=== PATIENT | female | born 1935 | race Caucasian/White ===

== ENCOUNTER 2016-09-24 10:27 | Emergency (ER) | payer MEDICARE, OTHER ==
--- NOTE | 2016-09-24 11:26 | ED Physician Documentation ---
History of Present Illness - Stated complaint Stated Complaint: L ARM PX - Chief complaint Chief Complaint: Ext Problem - Additonal information Additional information: hx from pt 81 female L arm pain for several days no injury entire arm hurts but elbow is the worst it is swollen and feels hot hx prior trauma and cannot fully range that elbow she fears gout Review of Systems Constitutional: denies: Fever Cardiac: denies: Chest pain / pressure Respiratory: denies: Dyspnea GI: denies: Abdominal Pain Musculoskeletal: reports: Extremity pain, Joint pain PD PAST MEDICAL HISTORY - Past Medical History Cardiovascular: Congestive heart failure, Coronary artery disease, Atrial flutter, Atrial fibrillation Respiratory: None, COPD Neuro: None Endocrine/Autoimmune: None GI: GERD Psych: Panic attacks Musculoskeletal: None - Past Surgical History 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 Cardiovascular: Coronary stent HEENT: Tonsil/Adenoidectomy - Present Medications Home Medications: Ambulatory Orders Medication Instructions Recorded Confirmed Zolpidem [Ambien] 5 mg PO QPM PRN 02/14/16 09/24/16 Aspirin Chewable [St Jan 81 mg PO DAILY 02/21/16 09/24/16 Aspirin] Atorvastatin Calcium 60 mg PO QPM 02/21/16 09/24/16 Diltiazem HCl [Diltiazem 24Hr ER] 240 mg PO DAILY 02/21/16 09/24/16 Esomeprazole Magnesium [Nexium] 20 mg PO DAILY 02/21/16 09/24/16 Hydrocodone/Acetaminophen 1 tab PO Q6H PRN 02/21/16 09/24/16 [Hydrocodon-Acetaminophen 5-325] Levothyroxine Sodium 50 mcg PO DAILY 02/21/16 09/24/16 Metoprolol Succinate [Toprol Xl] 50 mg PO DAILY tablet 02/23/16 09/24/16 Furosemide [Lasix] 40 mg PO DAILY 09/24/16 09/24/16 - Allergies Allergies/Adverse Reactions: Allergies Allergy/AdvReac Type Severity Reaction Status Date / Time adhesive AdvReac Rash Verified 09/24/16 10:33 lisinopril AdvReac Respiratory Verified 09/24/16 10:33 - Social History Does the pt smoke?: No Smoking Status: Former smoker Does the pt drink ETOH?: No Does the pt have substance abuse?: No - Immunizations Immunizations are current?: Yes - POLST Patient has POLST: No PD ED PE NORMAL - Vitals Vital signs reviewed: Yes - General General: Alert and oriented X 3 - Cardiac Cardiac: No: RRR (irreg) - Respiratory Respiratory: No respiratory distress - Extremities Extremities: Other (L elbow swollen, patch or erythema, limited ROM 2/2 prior injury but also pain, MSV intact, rest of arm midlly TTP but s deformity and able to move shoulder and wrist) Results - Vitals Vitals: Vital Signs - 24 hr 09/24/16 09/24/16 10:30 16:36 Temperature 37.2 C 37.1 C Heart Rate 82 86 Respiratory 19 20 Rate Blood Pressure 117/84 H 133/78 H O2 Saturation 98 100 Oxygen O2 Source Room air - Labs Labs: Microbiology 09/24/16 14:30 Body Fluid Culture - Preliminary Other - Left Arm Laboratory Tests 09/24/16 14:30 Fluid Source SYNOVIAL Fluid Color BLOODY Fluid Clarity BLOODY Fluid WBC 22544 Fluid RBC [id number] Fluid Neutrophils % 80 Fluid Lymphocytes % 20 Fld Mesothelial Cell % Not Reportable Fluid Crystals NONE SEEN - Rads (name of study) elbow Radiology: See rad report (osteopenia, minimally impacted radial head fx, ant posterior fat pads suggest jt effusion) Procedures - Arthrocentesis Joint: Elbow, Left, Other (lateral approach with hand supinated to avoid radial nerve) Preparation: Sterile prep and drape Anesthesia: Lidocaine 1%, Other (with good effect) Fluid: Bloody, Sent for cell count, Sent for crystals, Sent for culture, Fluid obtained - cc (5), Sent for gram stain Aftercare: No complications (brief pain down the arm immediately resolved with moving the needle) PD MEDICAL DECISION MAKING - ED course ED course: xray shows impacted radial head - pt states absolutely no recent trauma - and no bruising noted - she has hx of sig prior injury with residual limited ROM and so I suspect this xray is likely chronic - given erythema and warmth and pain with ROM tapped elbow under sterile procedure - lateral approach, supinated as far as limited ROM would allow to avoid radial nerve, pt did have a brief pain down her arm but it immed resolved, 5 ml bloody fluid removed, she felt better after the procedure, fluid analysis is c/w hemarthrosis but not septic jt or gout, unclear why she would have hemarthrosis without trauma, will refer to ortho for further eval Departure - Departure Disposition: 01 Home, Self Care Clinical Impression: Hemarthrosis Condition: Good Follow-Up: [facility] [Provider Group] Delvin Parrish DO [Primary Care Provider] - Comments: The xray showed a deformity to the bones in the elbow - since you have not had a recent injury this is likely a chronic finding. Because there was redness and warmth to the elbow joint, there was concern about gout or a joint infection. So we drained some fluid from the joint - the fluid was mostly all blood - there were no gout crystals and the number of white blood cells in the fluid does not suggest a joint infection. Hopefully the pain will be a bit better now that some of the fluid has been drained off. You can use an YISSEL wrap to further decrease the swelling as well as wear a sling for comfort. Ice will help too. Please follow up with the learning design specialist for a recheck within a week. Continue the pain medications you already take at home The ER will call you if the fluid culture indicates the need for different treatment
--- NOTE | 2016-09-24 11:50 | XRAY Preliminary Report ---
Exam: XR Elbow 3 View LT IMPRESSION: Minimally impacted radial head fracture. [facility] SITE ID: [id number]
--- NOTE | 2016-09-24 11:53 | XRAY Report ---
EXAM: LEFT ELBOW RADIOGRAPHY EXAM DATE: 09/24/2016 11:26 AM. CLINICAL HISTORY: Elbow pain and swelling. COMPARISON: None. TECHNIQUE: 3 views. FINDINGS: Bones: Osteopenia. Minimally impacted radial head fracture. Otherwise unremarkable. Joints: Prominent distention of anterior and posterior fat pads. Mild marginal lipping. Soft Tissues: Unremarkable. IMPRESSION: Minimally impacted radial head fracture. [facility] Referring Provider Line: [phone] SITE ID: [id number]
[2016-09-24] MEDS ORDERED: LIDOCAINE 1%-EPI 1:100000 20 ML MDV ONE (13:59)
[2016-09-24 15:43] LABS: CC,BF RBC 622331 /mm^3
[2016-09-24 16:15] LABS: BF CLARITY BLOODY; BF COLOR BLOODY
[2016-09-24 16:41] VITALS: BP 133/78
[2016-09-24 17:20] LABS: LYMPHOCYTES %,BODY FLUID 20; NEUTROPHILS %, BF 80 %
== END 2016-09-24 16:34 | disposition home or self-care (01) ==
LOC: ED 10:27
DX: M25.022 Hemarthrosis, left elbow (principal); M85.822 Other specified disorders of bone density and structure, left upper arm; Z79.82 Long term (current) use of aspirin; Z87.891 Personal history of nicotine dependence
CPT/HCPCS: 20605; 87070; 87205; 89051; 89060; 99283

== ENCOUNTER 2016-10-11 18:01 | Outpatient (CLI) | payer MEDICARE, OTHER | END 2016-10-11 18:02 | disposition critical access hospital (66) | LOC: EMS 18:01 | PROVIDERS: ATTEND Surgery | DX: M79.652 Pain in left thigh (principal) | CPT/HCPCS: A0425; A0429 ==

== ENCOUNTER 2016-10-11 18:21 | Emergency (ER) | payer MEDICARE, OTHER ==
[2016-10-11] MEDS ORDERED: HYDROmorphone 1 MG/ML SYRINGE IVP STA ×2 (18:45→21:00)
--- NOTE | 2016-10-11 18:47 | ED Physician Documentation ---
PD HPI LOWER EXT INJURY - Stated complaint Stated Complaint: GROIN/THIGH PN - Chief complaint Chief Complaint: Ext Problem - History obtained from History obtained from: Patient, EMS - Additional information Additional information: 81-year-old woman with extensive vascular disease presents with acute onset thigh pain on the left for the last few hours without associated injury. Pain is severe. No associated fever. 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 Cardiovascular: Coronary stent HEENT: Tonsil/Adenoidectomy - Present Medications Home Medications: Ambulatory Orders Medication Instructions Recorded Confirmed Zolpidem [Ambien] 5 mg PO QPM PRN 02/14/16 10/11/16 Aspirin Chewable [St Jan 81 mg PO DAILY 02/21/16 10/11/16 Aspirin] Atorvastatin Calcium 60 mg PO QPM 02/21/16 10/11/16 Diltiazem HCl [Diltiazem 24Hr ER] 240 mg PO DAILY 02/21/16 10/11/16 Esomeprazole Magnesium [Nexium] 20 mg PO DAILY 02/21/16 10/11/16 Hydrocodone/Acetaminophen 1 tab PO Q6H PRN 02/21/16 10/11/16 [Hydrocodon-Acetaminophen 5-325] Levothyroxine Sodium 50 mcg PO DAILY 02/21/16 10/11/16 Metoprolol Succinate [Toprol Xl] 50 mg PO DAILY tablet 02/23/16 10/11/16 Furosemide [Lasix] 40 mg PO DAILY 09/24/16 10/11/16 Potassium Citrate [Potassium 5 meq PO BID #10 tablet.er 10/11/16 Citrate ER] - Allergies Allergies/Adverse Reactions: Allergies Allergy/AdvReac Type Severity Reaction Status Date / Time adhesive AdvReac Rash Verified 09/24/16 10:33 lisinopril AdvReac Respiratory Verified 09/24/16 10:33 - Social History Does the pt smoke?: No Smoking Status: Former smoker Does the pt drink ETOH?: No Does the pt have substance abuse?: No - Family History Family history: reports: Non contributory - Immunizations Immunizations are current?: Yes - POLST Patient has POLST: No PD ED PE NORMAL - Vitals Vital signs reviewed: Yes - General General: Alert and oriented X 3, Other (uncomfortable, in pain) - Neck Neck: Supple, no meningeal sign, No bony TTP - Cardiac Cardiac: RRR, No murmur - Respiratory Respiratory: No respiratory distress, Clear bilaterally - Abdomen Abdomen: Normal bowel sounds, Soft, Non tender - Derm Derm: Normal color, Warm and dry - Extremities Extremities: Other (I do appreciate pedal pulses, the left foot is cool but they are symmetric. No swelling. There is a healing lesion on the anterior left maldonado and multiple old bruises.) - Neuro Neuro: Alert and oriented X 3, Normal speech - Psych Psych: Normal mood, Normal affect Results - Vitals Vitals: Vital Signs - 24 hr 10/11/16 10/11/16 10/11/16 18:22 18:27 19:41 Temperature 36.7 C 36.4 C L Heart Rate 111 H 81 Respiratory 22 15 Rate Blood Pressure 152/82 H 151/77 H O2 Saturation 99 99 10/11/16 10/11/16 10/11/16 20:17 21:25 21:39 Temperature 36.6 C Heart Rate 69 91 72 Respiratory 16 16 16 Rate Blood Pressure 133/79 H 148/77 H 148/77 H O2 Saturation 99 100 97 Oxygen O2 Source Room air - Labs Labs: Laboratory Tests 10/11/16 10/11/16 10/11/16 18:52 18:52 19:57 WBC 9.2 RBC 3.93 L Hgb 11.7 L Hct 35.6 L MCV 90.6 MCH 29.8 MCHC 33.0 RDW 15.3 H Plt Count 316 MPV 7.5 L Neut # 7.4 H Lymph # 0.9 L [place] # 0.7 Eos # 0.1 Baso # 0.1 Absolute Nucleated RBC 0.00 Nucleated RBCs 0.0 Sodium 140 Potassium 3.2 L Chloride 103 Carbon Dioxide 23 Anion Gap 14.0 H BUN 27 H Creatinine 1.1 H Estimated GFR (MDRD) 48 L Glucose 171 H Lactic Acid 1.1 Calcium 9.1 Total Bilirubin 0.9 AST 27 ALT 23 Alkaline Phosphatase 103 Total Protein 6.6 L Albumin 3.5 Globulin 3.1 Albumin/Globulin Ratio 1.1 Lipase 21 L Urine Color Urine Clarity Urine pH Ur Specific [place] Urine Protein Urine Glucose (UA) Urine Ketones Urine Occult Blood Urine Nitrite Urine Bilirubin Urine Urobilinogen Ur Leukocyte Esterase Ur Microscopic Review Urine Culture Comments 10/11/16 20:00 WBC RBC Hgb Hct MCV MCH MCHC RDW Plt Count MPV Neut # Lymph # [place] # Eos # Baso # Absolute Nucleated RBC Nucleated RBCs Sodium Potassium Chloride Carbon Dioxide Anion Gap BUN Creatinine Estimated GFR (MDRD) Glucose Lactic Acid Calcium Total Bilirubin AST ALT Alkaline Phosphatase Total Protein Albumin Globulin Albumin/Globulin Ratio Lipase Urine Color YELLOW Urine Clarity CLEAR Urine pH 5.0 Ur Specific [place] 1.015 Urine Protein NEGATIVE Urine Glucose (UA) NEGATIVE Urine Ketones NEGATIVE Urine Occult Blood NEGATIVE Urine Nitrite NEGATIVE Urine Bilirubin NEGATIVE Urine Urobilinogen 0.2 (NORMAL) Ur Leukocyte Esterase NEGATIVE Ur Microscopic Review NOT INDICATED Urine Culture Comments NOT INDICATED - Rads (name of study) L femur Radiology: EMP read contemporaneously (NAD) PD MEDICAL DECISION MAKING - ED course ED course: She presents with severe sudden onset left thigh pain, this is concerning for a vascular issue however she has normal pedal pulses. There is no evidence of infection on exam or blood work. She is noted to be dehydrated with low potassium, of note her diuretic who recently increased and I wonder if this is the cause. Departure - Departure Disposition: 01 Home, Self Care Clinical Impression: Hypokalemia Leg cramps Qualifiers: Laterality: left Qualified Code(s): R25.2 - Cramp and spasm Condition: Good Record reviewed to determine appropriate education?: Yes Instructions: Hypokalemia Dc Prescriptions: Potassium Citrate [Potassium Citrate ER] 5 meq PO BID #10 tablet.er Comments: Call your doctor to arrange a follow up appointment. Make the next available appointment. In the interim return anytime if worse or if new symptoms develop. Your blood pressure was elevated today on check in to the emergency department. This does not mean that you have hypertension, it is a common phenomenon to check into the emergency department and have elevated blood pressure. I recommend that you see your primary care physician within the week to have it rechecked when you're feeling better.
[2016-10-11] MEDS ORDERED: HYDROmorphone 1 MG/ML SYRINGE ONE ×2 (18:53→21:17)
[2016-10-11 19:00] LABS: BASOPHILS # (AUTO) 0.1 10^3/uL (0.0-0.1); BASOPHILS % (AUTO) 0.8 %; EOSINOPHILS # (AUTO) 0.1 10^3/uL (0.0-0.7); EOSINOPHILS % (AUTO) 1.1 %; HCT - HEMATOCRIT 35.6 % (37.0-47.0); HGB - HEMOGLOBIN 11.7 g/dL (12.0-16.0); LYMPHOCYTES # (AUTO) 0.9 10^3/uL (1.5-3.5); MEAN CORPUSCULAR HEMOGLOBIN 29.8 pg (27.0-31.0); MEAN CORPUSCULAR VOLUME 90.6 fL (81.0-99.0); MEAN PLATELET VOLUME 7.5 fL (7.9-10.8); MONOCYTES # (AUTO) 0.7 10^3/uL (0.0-1.0); MONOCYTES % (AUTO) 7.3 %; NEUTROPHILS # (AUTO) 7.4 10^3/uL (1.5-6.6); NEUTROPHILS % (AUTO) 80.8 %; RED BLOOD COUNT 3.93 10^6/uL (4.20-5.40); RED CELL DISTRIBUTION WIDTH 15.3 % (12.0-15.0); UNCORRECTED WHITE BLOOD COUNT 9.2 x10^3/uL; WHITE BLOOD COUNT 9.2 x10^3/uL (4.8-10.8)
[2016-10-11 19:15] LABS: ALBUMIN/GLOBULIN RATIO 1.1 (1.0-2.2); BILIRUBIN,TOTAL 0.9 mg/dL (0.2-1.0); CALCIUM 9.1 mg/dL (8.5-10.3); CREATININE 1.1 mg/dL (0.4-1.0); POTASSIUM 3.2 mmol/L (3.5-5.0); TOTAL PROTEIN 6.6 g/dL (6.7-8.2)
[2016-10-11] MEDS ORDERED: LACTATED RINGERS 1,000 ML IV STA (19:35)
[2016-10-11 20:10] LABS: BILIRUBIN,URINE NEGATIVE (NEGATIVE)
[2016-10-11 20:12] LABS: UA CHARGE (STRIP ONLY) YES; UR CULTURE IF IND NOT INDICATED
--- NOTE | 2016-10-11 20:54 | XRAY Preliminary Report ---
Exam: XR Femur 2V LT IMPRESSION: No acute osseous abnormality. [facility] SITE ID: [id number]
--- NOTE | 2016-10-11 20:57 | XRAY Report ---
EXAM: LEFT FEMUR RADIOGRAPHY EXAM DATE: 10/11/2016 08:31 PM. CLINICAL HISTORY: Leg pain. COMPARISON: Left hip radiography 03/24/2014. Right femur radiography 02/22/2016. TECHNIQUE: 2 views. 4 images are provided. FINDINGS: Bones: No fracture or focal osseous lesion. Joints: Degenerative change. No dislocation. Soft Tissues: Vascular stent in the medial thigh. IMPRESSION: No acute osseous abnormality. [facility] Referring Provider Line: [phone] SITE ID: [id number]
[2016-10-11] MEDS ORDERED: POTASSIUM BICARB 25 MEQ TABLET PO STA (21:00)
[2016-10-11] MEDS ORDERED: POTASSIUM BICARB 25 MEQ TABLET PO ONE (21:17)
[2016-10-11 21:29] VITALS: BP 148/77
[2016-10-11] MEDS ORDERED: KETOROLAC 60 MG/2 ML VIAL IVP STA (22:09)
[2016-10-11] MEDS ORDERED: HYDROcod/ACET 5/325 Prepack 6 PO STA (22:09)
[2016-10-11] MEDS ORDERED: KETOROLAC 30 MG/ML VIAL ONE (22:21)
[2016-10-11] MEDS ORDERED: HYDROcod/ACET 5/325 Prepack 6 PO ONE (22:22)
== END 2016-10-11 22:42 | disposition home or self-care (01) ==
LOC: EDUNIT# → ED 18:21
DX: E87.6 Hypokalemia (principal); R25.2 Cramp and spasm; I25.10 Atherosclerotic heart disease of native coronary artery without angina pectoris; I50.9 Heart failure, unspecified; I48.92 Unspecified atrial flutter; I48.91 Unspecified atrial fibrillation; R03.0 Elevated blood-pressure reading, without diagnosis of hypertension; Z79.82 Long term (current) use of aspirin; Z87.891 Personal history of nicotine dependence; Z90.710 Acquired absence of both cervix and uterus; Z95.5 Presence of coronary angioplasty implant and graft
CPT/HCPCS: 36415; 73552; 80053; 81003; 83605; 83690; 85025; 96374; 96375; 96376; 99284; A9270; J1170; 81001; 87086

== ENCOUNTER 2016-11-03 10:30 | Outpatient (CLI) | payer MEDICARE, OTHER ==
[2016-11-03 15:04] LABS: BASOPHILS # (AUTO) 0.1 10^3/uL (0.0-0.1); BASOPHILS % (AUTO) 0.6 %; EOSINOPHILS # (AUTO) 0.1 10^3/uL (0.0-0.7); EOSINOPHILS % (AUTO) 1.1 %; HCT - HEMATOCRIT 36.4 % (37.0-47.0); HGB - HEMOGLOBIN 12.1 g/dL (12.0-16.0); LYMPHOCYTES # (AUTO) 1.1 10^3/uL (1.5-3.5); LYMPHOCYTES % (AUTO) 10.6 %; MEAN CORPUSCULAR HEMOGLOBIN 29.8 pg (27.0-31.0); MEAN CORPUSCULAR HGB CONC 33.3 g/dL (32.0-36.0); MEAN CORPUSCULAR VOLUME 89.5 fL (81.0-99.0); MONOCYTES # (AUTO) 1.4 10^3/uL (0.0-1.0); MONOCYTES % (AUTO) 13.2 %; NEUTROPHILS % (AUTO) 74.5 %; NUCLEATED RED BLOOD CELLS AUTO 0.1 /100WBC; RED BLOOD COUNT 4.07 10^6/uL (4.20-5.40); UNCORRECTED WHITE BLOOD COUNT 10.8 x10^3/uL; WHITE BLOOD COUNT 10.8 x10^3/uL (4.8-10.8)
[2016-11-03 16:01] LABS: ALBUMIN/GLOBULIN RATIO 1.1 (1.0-2.2); BILIRUBIN,TOTAL 1.5 mg/dL (0.2-1.0); CALCIUM 9.3 mg/dL (8.5-10.3); CREATININE 1.1 mg/dL (0.4-1.0); POTASSIUM 4.7 mmol/L (3.5-5.0); TOTAL PROTEIN 7.6 g/dL (6.7-8.2)
== END 2016-11-03 10:31 | disposition home or self-care (01) ==
LOC: LAB.WCP 10:30
PROVIDERS: ATTEND Family Medicine
DX: S81.822D Laceration with foreign body, left lower leg, subsequent encounter (principal)
CPT/HCPCS: 36415; 80053; 85025; 87070; 87077; 87205

== ENCOUNTER 2016-11-04 11:05 | Outpatient (CLI) | payer MEDICARE, OTHER | END 2016-11-04 11:06 | disposition home or self-care (01) | LOC: LAB.R 11:05 | PROVIDERS: ATTEND Family Medicine | DX: S81.822D Laceration with foreign body, left lower leg, subsequent encounter (principal) | CPT/HCPCS: 87070; 87077; 87205 ==

== ENCOUNTER 2017-03-13 08:53 | Outpatient (CLI) | payer MEDICARE, OTHER | END 2017-03-13 08:54 | disposition home or self-care (01) | LOC: RT 08:53 | PROVIDERS: ATTEND Family Medicine | DX: J44.9 Chronic obstructive pulmonary disease, unspecified (principal) | CPT/HCPCS: 94010 ==

== ENCOUNTER 2017-11-09 08:00 | Outpatient (CLI) | payer MEDICARE, OTHER ==
[2017-11-09 12:51] LABS: BASOPHILS # (AUTO) 0.1 10^3/uL (0.0-0.1); BASOPHILS % (AUTO) 1.1 %; EOSINOPHILS # (AUTO) 0.3 10^3/uL (0.0-0.7); EOSINOPHILS % (AUTO) 3.9 %; HGB - HEMOGLOBIN 12.9 g/dL (12.0-16.0); LYMPHOCYTES % (AUTO) 15.1 %; MEAN CORPUSCULAR HEMOGLOBIN 31.4 pg (27.0-31.0); MEAN CORPUSCULAR HGB CONC 32.7 g/dL (32.0-36.0); MEAN CORPUSCULAR VOLUME 95.8 fL (81.0-99.0); MEAN PLATELET VOLUME 8.7 fL (7.9-10.8); MONOCYTES # (AUTO) 0.7 10^3/uL (0.0-1.0); NEUTROPHILS # (AUTO) 4.5 10^3/uL (1.5-6.6); NEUTROPHILS % (AUTO) 69.9 %; PLT - PLATELET COUNT 249 10^3/uL (130-450); RED BLOOD COUNT 4.13 10^6/uL (4.20-5.40); RED CELL DISTRIBUTION WIDTH 15.6 % (12.0-15.0); WHITE BLOOD COUNT 6.5 x10^3/uL (4.8-10.8)
[2017-11-09 13:31] LABS: ALBUMIN 3.3 g/dL (3.2-5.5); ALKALINE PHOSPHATASE 60 IU/L (42-121); ALT ALANINE AMINOTRANSFERASE 15 IU/L (10-60); AST ASPARTATE AMINOTRANSFERASE 25 IU/L (10-42); BILIRUBIN,TOTAL 1.3 mg/dL (0.2-1.0); BUN - BLOOD UREA NITROGEN 21 mg/dL (6-20); CARBON DIOXIDE - CO2 28 mmol/L (21-32); CHLORIDE 105 mmol/L (101-111); CREATININE 1.3 mg/dL (0.4-1.0); DIGOXIN 0.4 ng/mL; GFR - MDRD 39 (>89); GLUCOSE 77 mg/dL (70-100); SODIUM 139 mmol/L (135-145); TOTAL PROTEIN 6.6 g/dL (6.7-8.2)
== END 2017-11-09 08:01 | disposition home or self-care (01) ==
LOC: LAB.WCP 08:00
PROVIDERS: ATTEND Family Medicine
DX: I10 Essential (primary) hypertension (principal); I48.91 Unspecified atrial fibrillation
CPT/HCPCS: 36415; 80053; 80162; 85025

== ENCOUNTER 2017-12-27 12:05 | Outpatient (CLI) | payer MEDICARE, OTHER | END 2017-12-27 12:06 | disposition critical access hospital (66) | LOC: EMS 12:05 | PROVIDERS: ATTEND Surgery | DX: M79.605 Pain in left leg (principal); R10.30 Lower abdominal pain, unspecified; M54.5 Low back pain | CPT/HCPCS: A0425; A0427 ==

== ENCOUNTER 2017-12-27 12:34 | Emergency (ER) | payer MEDICARE, OTHER ==
[2017-12-27] MEDS ORDERED: DEXAMETHASONE 10 MG/ML VIAL IVP STA (13:40)
[2017-12-27] MEDS ORDERED: SODIUM CHLORIDE 0.9% 1,000 ML IV ONE (13:40)
--- NOTE | 2017-12-27 13:47 | ED Physician Documentation ---
PD HPI BACK PAIN - Stated complaint Stated Complaint: FEM - Chief complaint Chief Complaint: General - History obtained from History obtained from: Patient - History of Present Illness Timing - onset: Today Timing - duration: Hours Timing - details: Abrupt onset, Still present Location: Lower, Left Quality: Pain, Spasm, Sharp Associated symptoms: No: Fever, Weakness, Numbness, Incontinent of urine, Unable to urinate, Hematuria, Incontinent of stool Improves with: Rest Worsened by: Movement, Twisting, Palpation Similar symptoms before: Diagnosis (vascular disease in the legs) Recently seen: Surgery - Additional information Additional information: 82-year-old female with history of osteoporosis and peripheral vascular disease as well as coronary artery disease has developed pain in her left groin that radiates from her back. She states that the pain was severe this morning and she is then able to move around without significant pain. She relates that recently she has been into see the vascular surgeon and had an angiogram done where she had the right femoral artery entered to view the arteries in the left leg. She states the surgeon was preparing to do balloon angioplasty and the procedure was abandoned when it appeared physically impossible to open vessels distally in the left leg. The patient states that she usually will have pain in her left leg and that today this pain is different and that it is in her left groin and radiates around her hip into the groin. She has had chronic low back pain. Today anytime she moves around she has pain radiating into her groin. She denies any specific injury to her back she denies any specific time that her symptoms came on. Review of Systems Constitutional: denies: Fever Eyes: denies: Decreased vision Ears: denies: Ear pain Nose: denies: Congestion Throat: denies: Sore throat Cardiac: denies: Chest pain / pressure, Palpitations Respiratory: denies: Dyspnea, Cough GI: denies: Abdominal Pain, Nausea, Vomiting : denies: Dysuria, Frequency Musculoskeletal: reports: Back pain, Extremity pain. 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 Cardiovascular: Coronary stent HEENT: Tonsil/Adenoidectomy - Present Medications Home Medications: Ambulatory Orders Medication Instructions Recorded Confirmed Zolpidem [Ambien] 5 mg PO QPM PRN 02/14/16 02/06/17 Atorvastatin Calcium 60 mg PO QPM 02/21/16 02/06/17 Hydrocodone/Acetaminophen 1 tab PO Q6H PRN 02/21/16 02/06/17 [Hydrocodon-Acetaminophen 5-325] Levothyroxine Sodium 50 mcg PO DAILY 02/21/16 02/06/17 Furosemide [Lasix] 40 mg PO DAILY 09/24/16 02/06/17 Albuterol Sulfate [Proair Hfa 2 puffs INH Q4HR PRN 11/25/16 02/06/17 Inhaler] Ascorbic Acid [Vitamin C] 500 mg PO DAILY 11/25/16 02/06/17 Benzonatate 100 mg PO DAILY PRN 11/25/16 02/06/17 Cholecalciferol (Vitamin D3) 2 cap PO DAILY 11/25/16 02/06/17 [Vitamin D3] Cyanocobalamin (Vitamin B-12) 2 tab PO DAILY 11/25/16 02/06/17 [Vitamin B-12] Digoxin 125 mcg PO DAILY 11/25/16 02/06/17 Metoprolol Succinate [Toprol Xl] 25 mg PO DAILY 11/25/16 02/06/17 Multivitamin [Multiple Vitamins] 1 tab PO DAILY 11/25/16 02/06/17 oxyCODONE/ACET 5/325 [Percocet 5 1 - 2 each PO Q4-6H PRN #20 tablet 12/27/17 mg/325 mg] - Allergies Allergies/Adverse Reactions: Allergies Allergy/AdvReac Type Severity Reaction Status Date / Time adhesive AdvReac Rash Verified 09/24/16 10:33 lisinopril AdvReac Respiratory Verified 09/24/16 10:33 - Social History Does the pt smoke?: No Smoking Status: Former smoker Does the pt drink ETOH?: No Does the pt have substance abuse?: No - Immunizations Immunizations are current?: Yes - POLST Patient has POLST: No PD ED PE NORMAL - Vitals Vital signs reviewed: Yes (hypertensive ) - General General: Alert and oriented X 3, No acute distress, Well developed/nourished - HEENT HEENT: Atraumatic, PERRL, EOMI - Neck Neck: Supple, no meningeal sign - Cardiac Cardiac: Other (irregularly irregular rate and rhythm with 2/6 holosystolic murmer at lsb) - Respiratory Respiratory: No respiratory distress, Clear bilaterally - Abdomen Abdomen: Soft, Non tender - Back Back: No CVA TTP, Other (There is lower lumbar midline point tenderness ) - Derm Derm: Normal color, Warm and dry, No rash - Extremities Extremities: No deformity, No edema, Other (There are good femoral pulses bilaterally easily palpable. 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, No motor deficit, No sensory deficit, Normal speech Eye Opening: Spontaneous Motor: Obeys Commands Verbal: Oriented GCS Score: 15 - Psych Psych: Normal mood, Normal affect Results - Vitals Vitals: Vital Signs - 24 hr 12/27/17 12:42 Temperature 36.2 C L Heart Rate 90 Respiratory 16 Rate Blood Pressure 156/101 H O2 Saturation 98 Oxygen O2 Source Room air - Labs Labs: Laboratory Tests 12/27/17 12/27/17 12/27/17 13:55 13:55 14:35 WBC 8.7 RBC 3.88 L Hgb 12.4 Hct 36.6 L MCV 94.2 MCH 32.0 H MCHC 33.9 RDW 15.4 H Plt Count 260 MPV 8.2 Neut # (Auto) 7.6 H Lymph # (Auto) 0.6 L [place] # (Auto) 0.4 Eos # (Auto) 0.0 Baso # (Auto) 0.1 Absolute Nucleated RBC 0.01 Nucleated RBC % 0.1 Sodium 140 Potassium 4.3 Chloride 105 Carbon Dioxide 25 Anion Gap 10.0 BUN 23 H Creatinine 1.1 H Estimated GFR (MDRD) 48 L Glucose 135 H Calcium 8.9 Total Bilirubin 1.6 H AST 25 ALT 18 Alkaline Phosphatase 75 Total Protein 7.0 Albumin 4.0 Globulin 3.0 Albumin/Globulin Ratio 1.3 Lipase 30 Urine Color YELLOW Urine Clarity CLEAR Urine pH 5.[address] 1.015 Urine Protein NEGATIVE Urine Glucose (UA) NEGATIVE Urine Ketones NEGATIVE Urine Occult Blood NEGATIVE Urine Nitrite NEGATIVE Urine Bilirubin NEGATIVE Urine Urobilinogen 0.2 (NORMAL) Ur Leukocyte Esterase NEGATIVE Ur Microscopic Review NOT INDICATED Urine Culture Comments NOT INDICATED - Rads (name of study) lumbar spine Radiology: Prelim report reviewed (Impression: 1. Osteopenia. No acute bony abnormality is evident. 2 increased levoscoliosis centered at L2-L3. 3 advanced multilevel degenerative disc disease and facet arthropathy, as before.) , EMP read indepedently, See rad report Procedures - IVC sono (time) 1340 Bedside IVC sono: IVC measures (cm) (0.87), IVC collapsed c insp (cm) (complete) , Dehydration (est 1-2 liter deficit) PD MEDICAL DECISION MAKING - ED course Complexity details: reviewed results, re-evaluated patient, considered differential, d/w patient ED course: 82 y/o female with a history of afib and vascular disease has developed sciatica with pain wrapping around to the left groin. She is administered dexamethasone and she is found to be dehydrated on interrogation of the IVC and she is administered IV saline as well. She has some improvement with these maneuvers. An x-ray of the lumbar spine is obtained to rule out compression fracture. - Sepsis Event Vital Signs: Vital Signs - 24 hr 12/27/17 12:42 Temperature 36.2 C L Heart Rate 90 Respiratory 16 Rate Blood Pressure 156/101 H O2 Saturation 98 Oxygen O2 Source Room air Departure - Departure Disposition: Home, Self Care Clinical Impression: Sciatica Qualifiers: Laterality: left Qualified Code(s): M54.32 - Sciatica, left side Condition: Stable Instructions: ED Sciatica Follow-Up: Delvin Parrish DO [Primary Care Provider] - Prescriptions: oxyCODONE/ACET 5/325 [Percocet 5 mg/325 mg] 1 - 2 each PO Q4-6H PRN #20 tablet PRN Reason: Pain
[2017-12-27 14:13] LABS: BASOPHILS # (AUTO) 0.1 10^3/uL (0.0-0.1); BASOPHILS % (AUTO) 0.6 %; EOSINOPHILS % (AUTO) 0.2 %; HGB - HEMOGLOBIN 12.4 g/dL (12.0-16.0); LYMPHOCYTES # (AUTO) 0.6 10^3/uL (1.5-3.5); LYMPHOCYTES % (AUTO) 6.8 %; MEAN CORPUSCULAR HGB CONC 33.9 g/dL (32.0-36.0); MEAN CORPUSCULAR VOLUME 94.2 fL (81.0-99.0); MEAN PLATELET VOLUME 8.2 fL (7.9-10.8); MONOCYTES # (AUTO) 0.4 10^3/uL (0.0-1.0); MONOCYTES % (AUTO) 4.7 %; NEUTROPHILS # (AUTO) 7.6 10^3/uL (1.5-6.6); NEUTROPHILS % (AUTO) 87.7 %; PLT - PLATELET COUNT 260 10^3/uL (130-450); RED BLOOD COUNT 3.88 10^6/uL (4.20-5.40); RED CELL DISTRIBUTION WIDTH 15.4 % (12.0-15.0); WHITE BLOOD COUNT 8.7 x10^3/uL (4.8-10.8)
[2017-12-27 14:29] LABS: ALBUMIN/GLOBULIN RATIO 1.3 (1.0-2.2); BILIRUBIN,TOTAL 1.6 mg/dL (0.2-1.0); CALCIUM 8.9 mg/dL (8.5-10.3); CREATININE 1.1 mg/dL (0.4-1.0)
[2017-12-27 14:47] LABS: BILIRUBIN,URINE NEGATIVE (NEGATIVE); GLUCOSE, URINE (UA) NEGATIVE (NEGATIVE); KETONES,URINE (UA) NEGATIVE (NEGATIVE); LEUKOCYTE ESTERASE, URINE NEGATIVE (NEGATIVE); NITRITE,URINE NEGATIVE (NEGATIVE); OCCULT BLOOD,URINE NEGATIVE (NEGATIVE); PH,URINE 5.5 PH (5.0-7.5); PROTEIN,URINE NEGATIVE (NEGATIVE); UROBILINOGEN,URINE 0.2 (NORMAL) E.U./dL (NORMAL)
[2017-12-27 14:48] LABS: CLARITY,URINE CLEAR (CLEAR)
--- NOTE | 2017-12-27 16:27 | XRAY Report ---
Reason: low back pain with movement. Procedure Date: 12/27/2017 Accession Number: [id number] / [id number] Procedure: XR - Lumbar Spine 2 View CPT Code: FULL RESULT: EXAM: LUMBOSACRAL SPINE RADIOGRAPHY EXAM DATE: 12/27/2017 03:38 PM. CLINICAL HISTORY: Low back pain with movement. COMPARISONS: XR LUMBOSACRAL SPINE 4 VIEWS 04/14/2011. TECHNIQUE: 2 views. FINDINGS: Alignment: Interval increased levoscoliosis centered at L2-L3, now measuring approximately 50 degrees, previously 38 degrees. No spondylolisthesis. Bones: Osteopenic. Five [id number] lumbar vertebral bodies are present. No fracture is seen. Disks: Moderate to severe disk height loss and endplate degenerative change throughout the lumbar spine, as before. Facets: Moderate to severe facet arthropathy in the lower lumbar spine. Sacroiliac Joints: Unremarkable. Soft Tissues: Atherosclerotic calcifications within the aorta. The visualized bowel gas pattern is normal. IMPRESSION: 1. Osteopenia. No acute bony abnormality is evident. 2. Increased levoscoliosis centered at L2-L3. 3. Advanced multilevel degenerative disk disease and facet arthropathy, as before. [facility]
[2017-12-27] MEDS ORDERED: oxyCODONE 5 MG TABLET PO STA (16:35)
[2017-12-27 16:51] VITALS: BP 155/102
== END 2017-12-27 17:14 | disposition home or self-care (01) ==
LOC: ED 12:34
DX: M54.32 Sciatica, left side (principal); I25.10 Atherosclerotic heart disease of native coronary artery without angina pectoris; Z95.5 Presence of coronary angioplasty implant and graft; I73.9 Peripheral vascular disease, unspecified; Z87.891 Personal history of nicotine dependence
CPT/HCPCS: 36415; 72100; 80053; 81003; 83690; 85025; 96361; 96374; 99283; A9270; 81001; 87086

== ENCOUNTER 2017-12-30 03:56 | Outpatient (CLI) | payer MEDICARE, OTHER | END 2017-12-30 03:57 | disposition critical access hospital (66) | LOC: EMS 03:56 | PROVIDERS: ATTEND Surgery | DX: R11.2 Nausea with vomiting, unspecified (principal); R53.1 Weakness | CPT/HCPCS: A0425; A0427 ==

== ENCOUNTER 2017-12-30 04:17 | Inpatient (IN) | payer MEDICARE, OTHER ==
[2017-12-30] MEDS ORDERED: SODIUM CHLORIDE 0.9% 1,000 ML IV ONE (04:27)
[2017-12-30] MEDS ORDERED: ONDANSETRON 4 MG/2 ML VIAL IVP STA ×2 (04:40→05:21)
--- NOTE | 2017-12-30 04:40 | ED Physician Documentation ---
PD HPI NVD - Stated complaint Stated Complaint: WEAKNESS, VOMITING - Chief complaint Chief Complaint: Abd Pain - History obtained from History obtained from: Patient, EMS - History of Present Illness Timing - onset: How many days ago (3) Timing - duration: Days (3) Timing - details: Abrupt onset, Waxing and waning Pain level now: 0 Associated symptoms: Dizzy. No: Fever, Abdominal pain, Chest pain Similar symptoms before: Has not had sx before Recently seen: Emergency Dept (T+R 3 days ago for back pain, given decadron, oxycodone and rx for oxycodone. 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 Review of Systems Constitutional: reports: Reviewed and negative Eyes: reports: Reviewed and negative Ears: reports: Reviewed and negative Nose: reports: Reviewed and negative Throat: reports: Reviewed and negative Cardiac: reports: Palpitations. denies: Chest pain / pressure, Pedal edema Respiratory: reports: Reviewed and negative GI: reports: Nausea, Vomiting, Other (patient did not note any blood in vomitus nor dark/"coffee ground" emesis, but medics report the vomitus appeared to have "coffee ground" appearance). denies: Abdominal Pain, Constipation, Diarrhea : denies: Dysuria, Frequency Skin: reports: Reviewed and negative Musculoskeletal: reports: Reviewed and negative Neurologic: reports: Generalized weakness. 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 Cardiovascular: Coronary stent HEENT: Tonsil/Adenoidectomy - Present Medications Home Medications: Ambulatory Orders Medication Instructions Recorded Confirmed Zolpidem [Ambien] 5 mg PO QPM PRN 02/14/16 02/06/17 Atorvastatin Calcium 60 mg PO QPM 02/21/16 02/06/17 Hydrocodone/Acetaminophen 1 tab PO Q6H PRN 02/21/16 02/06/17 [Hydrocodon-Acetaminophen 5-325] Levothyroxine Sodium 50 mcg PO QDAC 02/21/16 02/06/17 Furosemide [Lasix] 40 mg PO DAILY 09/24/16 02/06/17 Ascorbic Acid [Vitamin C] 1,000 mg PO DAILY 11/25/16 02/06/17 Cyanocobalamin (Vitamin B-12) 2 tab PO DAILY 11/25/16 02/06/17 [Vitamin B-12] Digoxin 125 mcg PO DAILY 11/25/16 02/06/17 Multivitamin [Multiple Vitamins] 1 tab PO DAILY 11/25/16 02/06/17 Albuterol Sulfate [Proair Hfa 2 puffs IH Q4HR PRN 12/30/17 Inhaler] Aspirin [Aspirin EC] 81 tab PO DAILY 12/30/17 Calcium Carbonate [Calcium] 1 tab PO DAILY 12/30/17 Cholecalciferol (Vitamin D3) 1 tab PO DAILY 12/30/17 [Vitamin D3] Diltiazem HCl [Diltiazem 24Hr ER] 1 tab PO DAILY 12/30/17 Metoprolol Succinate 100 mg PO DAILY 12/30/17 - Allergies Allergies/Adverse Reactions: Allergies Allergy/AdvReac Type Severity Reaction Status Date / Time adhesive AdvReac Rash Verified 12/30/17 04:36 lisinopril AdvReac Respiratory Verified 12/30/17 04:36 - Social History Does the pt smoke?: No Smoking Status: Never smoker Does the pt drink ETOH?: No Does the pt have substance abuse?: No - Immunizations Immunizations are current?: Yes - POLST Patient has POLST: No PD ED PE NORMAL - Vitals Vital signs reviewed: Yes - General General: Alert and oriented X 3, Well developed/nourished, Other (frequently vomiting during H+P ("dry heaving"; only trace amount of vomitus despite repeatedly retching); mild diaphoresis) - HEENT HEENT: Other (dry mucous membranes) - Neck Neck: Supple, no meningeal sign - Respiratory Respiratory: No respiratory distress, Clear bilaterally - Abdomen Abdomen: Normal bowel sounds, Soft, Non tender, Non distended - Back Back: No CVA TTP - Derm Derm: Warm and dry, Other (mild pallor) - Extremities Extremities: No edema - Neuro Neuro: Alert and oriented X 3 Eye Opening: Spontaneous Motor: Obeys Commands Verbal: Oriented GCS Score: 15 PD ED PE EXPANDED - Cardiac Cardiac: Tachy, Irregularly irregular, Murmur Present Results - Vitals Vitals: Vital Signs - 24 hr 12/30/17 12/30/17 12/30/17 04:18 04:41 05:20 Temperature 36.7 C Heart Rate 133 H 129 H 126 H Respiratory 24 19 16 Rate Blood Pressure 125/72 137/87 H 106/81 H O2 Saturation 99 100 96 12/30/17 06:00 Temperature Heart Rate 127 H Respiratory 16 Rate Blood Pressure 141/83 H O2 Saturation 100 Oxygen O2 Source Room air - EKG (time done) No standard instances Rate: Rate (enter#) (142) Rhythm: Atrial fibrillation [place]: Normal QRS: LVH Ischemia: Non specific changes (II, III, aVF, V4-V6) - Labs Labs: Laboratory Tests 12/30/17 12/30/17 12/30/17 04:30 04:30 04:30 WBC 2.7 L RBC 4.44 Hgb 13.9 Hct 41.9 MCV 94.3 MCH 31.2 H MCHC 33.1 RDW 15.5 H Plt Count 262 MPV 8.5 Neut # (Auto) Not Reportable Lymph # (Auto) Not Reportable [place] # (Auto) Not Reportable Eos # (Auto) Not Reportable Baso # (Auto) Not Reportable Absolute Nucleated RBC Not Reportable Total Counted 100 Band Neuts % (Manual) 19 H Abnorm Lymph % (Manual) 0 Nucleated RBC % Not Reportable Neutrophils # (Manual) 1.8 Lymphocytes # (Manual) 0.5 L Monocytes # (Manual) 0.4 Eosinophils # (Manual) 0.0 Basophils # (Manual) 0.0 Differential Comment MANUAL DIFFERENTIAL Platelet Estimate NORMAL (130-450,000) RBC Morph Micro Appear NORMAL APPEARANCE PT INR APTT Sodium 136 Potassium 3.3 L Chloride 92 L Carbon Dioxide 29 Anion Gap 15.0 H BUN 52 H Creatinine 1.9 H Estimated GFR (MDRD) 25 L Glucose 179 H Calcium 9.8 Total Bilirubin 1.7 H AST 33 ALT 22 Alkaline Phosphatase 79 Total Protein 7.5 Albumin 4.1 Globulin 3.4 Albumin/Globulin Ratio 1.2 Lipase 20 L Last Dose Date Last Dose Time Digoxin Blood Type O NEGATIVE Antibody Screen NEGATIVE 12/30/17 12/30/17 04:30 04:30 WBC RBC Hgb Hct MCV MCH MCHC RDW Plt Count MPV Neut # (Auto) Lymph # (Auto) [place] # (Auto) Eos # (Auto) Baso # (Auto) Absolute Nucleated RBC Total Counted Band Neuts % (Manual) Abnorm Lymph % (Manual) Nucleated RBC % Neutrophils # (Manual) Lymphocytes # (Manual) Monocytes # (Manual) Eosinophils # (Manual) Basophils # (Manual) Differential Comment Platelet Estimate RBC Morph Micro Appear PT 12.5 INR 1.1 APTT 24.0 L Sodium Potassium Chloride Carbon Dioxide Anion Gap BUN Creatinine Estimated GFR (MDRD) Glucose Calcium Total Bilirubin AST ALT Alkaline Phosphatase Total Protein Albumin Globulin Albumin/Globulin Ratio Lipase Last Dose Date UNK Last Dose Time UNK Digoxin 0.4 Blood Type Antibody Screen PD MEDICAL DECISION MAKING - ED course Complexity details: reviewed old records, reviewed results, re-evaluated patient , considered differential, d/w patient, d/w family (son (in ED at bedside)) ED course: continued to vomit despite IV fluids and IV antiemetics. LOGAN, which is likely due to dehydration, reaction to the physical stress of vomiting, and lack of her rate-controlling medications due to unable to tolerate for at least past 24 hours. Gastroccult strong (+) when I tested it on the vomitus; the vomitus appeared brown (neither grossly bloody nor "coffee ground" appearance) - Sepsis Event Vital Signs: Vital Signs - 24 hr 12/30/17 12/30/17 12/30/17 04:18 04:41 05:20 Temperature 36.7 C Heart Rate 133 H 129 H 126 H Respiratory 24 19 16 Rate Blood Pressure 125/72 137/87 H 106/81 H O2 Saturation 99 100 96 12/30/17 06:00 Temperature Heart Rate 127 H Respiratory 16 Rate Blood Pressure 141/83 H O2 Saturation 100 Oxygen O2 Source Room air Departure - Departure Disposition: ED Place in Observation Clinical Impression: Atrial fibrillation with RVR Intractable nausea and vomiting Qualifiers: Vomiting type: unspecified Qualified Code(s): R11.2 - Nausea with vomiting, unspecified Condition: Stable Discharge Date/Time: 12/30/17 06:59
[2017-12-30 04:54] LABS: BASOPHILS % (AUTO) 0.1 %; HGB - HEMOGLOBIN 13.9 g/dL (12.0-16.0); LYMPHOCYTES % (AUTO) 13.5 %; MEAN CORPUSCULAR HEMOGLOBIN 31.2 pg (27.0-31.0); MEAN CORPUSCULAR HGB CONC 33.1 g/dL (32.0-36.0); MEAN CORPUSCULAR VOLUME 94.3 fL (81.0-99.0); MEAN PLATELET VOLUME 8.5 fL (7.9-10.8); MONOCYTES % (AUTO) 18.1 %; NEUTROPHILS % (AUTO) 68.3 %; PLT - PLATELET COUNT 262 10^3/uL (130-450); RED BLOOD COUNT 4.44 10^6/uL (4.20-5.40); RED CELL DISTRIBUTION WIDTH 15.5 % (12.0-15.0); WHITE BLOOD COUNT 2.7 x10^3/uL (4.8-10.8)
[2017-12-30 04:56] LABS: ABNORMAL LYMPHS % (MANUAL) 0 %
[2017-12-30 04:58] LABS: INR 1.1 (0.8-1.2); PT - PROTHROMBIN TIME 12.5 secs (9.9-12.6)
[2017-12-30 05:03] LABS: ALBUMIN 4.1 g/dL (3.2-5.5); ALBUMIN/GLOBULIN RATIO 1.2 (1.0-2.2); BILIRUBIN,TOTAL 1.7 mg/dL (0.2-1.0); CALCIUM 9.8 mg/dL (8.5-10.3); CREATININE 1.9 mg/dL (0.4-1.0); TOTAL PROTEIN 7.5 g/dL (6.7-8.2)
[2017-12-30 05:17] LABS: DIGOXIN 0.4 ng/mL
[2017-12-30 05:28] LABS: BAND NEUTROPHILS % (MANUAL) 19 %; DIFFERENTIAL COMMENT MANUAL DIFFERENTIAL; LYMPHOCYTES # (MANUAL) 0.5 10^3/uL (1.5-3.5); LYMPHOCYTES % (MANUAL) 20 %; MONOCYTES # (MANUAL) 0.4 10^3/uL (0.0-1.0); NEUTROPHILS # (MANUAL) 1.8 10^3/uL (1.5-6.6); NEUTROPHILS % (MANUAL) 48 %; PLATELET ESTIMATE, MANUAL NORMAL (130-450,000) (NORMAL); RBC MORPHOLOGY (MULTIPLE) NORMAL APPEARANCE (NORMAL)
[2017-12-30] MEDS: SODIUM CHLORIDE 0.9% 1,000 ML IV ONE ×2 (05:32→05:55)
[2017-12-30] MEDS ORDERED: SODIUM CHLORIDE 0.9% 1,000 ML IV STA (05:41)
[2017-12-30] MEDS ORDERED: ZOLPIDEM 5 MG TABLET PO PRN (06:22)
[2017-12-30] MEDS ORDERED: ONDANSETRON 4 MG/2 ML VIAL IVP PRN (06:22)
[2017-12-30] MEDS ORDERED: ACETAMINOPHEN 325 MG TABLET PO PRN (06:22)
[2017-12-30] MEDS ORDERED: HYDROcod/ACETAM 10 MG/325 MG TABLET PO PRN (06:22)
[2017-12-30] MEDS ORDERED: PROMETHAZINE 25 MG/1 ML VIAL IM PRN (06:22)
[2017-12-30] MEDS ORDERED: MORPHINE 2 MG/ML CARPUJECT IVP PRN (06:22)
[2017-12-30] MEDS ORDERED: PROCHLORPERAZINE 10 MG/2 ML VIAL IVP PRN (06:22)
[2017-12-30] MEDS ORDERED: METOPROLOL 5 MG/5 ML VIAL IVP PRN (06:29)
--- NOTE | 2017-12-30 06:33 | HISTORY & PHYSICAL EXAMINATION ---
Chief Complaint - Chief Complaint Chief Complaint: Nausea and vomiting History of Present Illness - Admitted From Admitted From:: Emergency Department - History Obtained From Records Reviewed: Yes History obtained from: Patient Exam Limitations: None - History of Present Illness HPI Comment/Other: Patient is an 82-year-old female with a past medical history significant for hypertension, atrial fibrillation not on anticoagulation, history of GI bleed, osteoarthritis, peripheral vascular disease, GERD, hyperlipidemia, asthma, anxiety and history of right leg infected hematoma who presented to the emergency department with a chief complaint of nausea and vomiting. The patient states that about 3 days ago she began having nausea and has had persistent vomiting and retching for the last 3 days. The patient states she has been unable to keep anything down and has not eaten anything in 3 days. She states over the last 2 days she has not had any bowel movements. She describes the emesis is coffee ground appearing. She states that she did not notice any blood in her vomit. The patient also complains of feeling of acid reflux if she states that she is having burning up into her chest. The patient states that she tried to drink some water and 7-Up earlier but was unable to keep it down. She states that she has not had any fevers or chills. She does state that she is beginning to have abdominal pain since she came into the emergency department. She states the pain is all over her abdomen. She states that the nausea and vomiting started after she was given a pain medication in the emergency department when she presented here with back pain 3 days ago. It appears from the records that the patient was given a dose of Decadron and oxycodone in the emergency department at that time. The patient denies having any sick contacts, or anyone else in the household with similar symptoms. The patient also denies any diarrhea. The patient denies eating any unusual foods prior to this starting. Patient denies any urinary symptoms. The patient does admit to chronic back pain which is worsening in the emergency department. Patient denies any headache, blurred vision, runny nose, sore throat, nasal congestion, difficulty swallowing, shortness of air, orthopnea, PND, increased lower extremity swelling, joint pain, muscle aches, neck stiffness, skin rash, recent unintentional weight loss, night sweats, polyuria, polydipsia or any focal neurologic deficits. On presentation to the emergency department the patient is afebrile and tachycardic with heart rate of 133, tachypneic with respiratory rate of 24 but otherwise normotensive and not in any respiratory distress. The patient underwent routine lab work which did reveal a leukopenia with a WBC count of 2.7 and a bandemia with 19% bands. The patient's hemoglobin was stable. Patient's INR was within normal limits. The patient did appear to be dehydrated on her chemistry as she had a creatinine of 1.9 up from a baseline of 1.1 just 3 days earlier. Her BUN was also elevated at 52 and she had a mildly elevated anion gap with hypokalemia and hypochloremia likely from her vomiting. The patient's digoxin level was in the therapeutic range. In the emergency department the patient was given 1 L of IV fluids and several doses of IV antiemetics without any improvement in her symptoms. The patient continued to have intractable nausea and vomiting and continued to have atrial fibrillation with a rapid ventricular rate. The patient's emesis was tested for stool guaiac and was found to be positive. The patient's hemoglobin was stable and she did not have any linda blood in the vomit. Patient continued to be in distress from her nausea and vomiting therefore she was placed in observation for further treatment and evaluation. History - Past Medical History Cardiovascular: reports: Hypertension, High cholesterol, Coronary artery disease , Atrial flutter, Atrial fibrillation Respiratory: reports: COPD Endocrine/Autoimmune: reports: None GI: reports: GERD, GI bleed Psych: reports: Panic attacks Musculoskeletal: reports: Osteoarthritis MRSA Hx?: No - Past Surgical History /[employer]: reports: Hysterectomy Cardiovascular: reports: Coronary stent HEENT: reports: Tonsil/Adenoidectomy - Family & Social History Family History: Mother: , Alzheimer's Disease, Father: , CAD Living arrangement: At home Living Situation: With family Social History Notes: The patient lives in [place] with her son. The patient is originally from [place]. She moved to [facility] just over 20 years ago with her . The patient's is since and the patient is now . She is very independent, still very involved in the community. The patient denies currently smoking. She quit smoking about 25-30 years ago. She previously smoked about a pack per day for about 30 years. She states that she used to drink 3 glasses of wine every night but has quit drinking about 4 years ago. She denies any illicit drug use. - POLST Patient has POLST: No POLST Status: DNR Meds/Allgy - Home Medications Home Medications: Ambulatory Orders Medication Instructions Recorded Confirmed Zolpidem [Ambien] 5 mg PO QPM PRN 02/14/16 12/30/17 Atorvastatin Calcium 40 mg PO QPM 02/21/16 12/30/17 Hydrocodone/Acetaminophen 1 tab PO Q6H PRN 02/21/16 12/30/17 [Hydrocodon-Acetaminophen 5-325] Levothyroxine Sodium 50 mcg PO DAILY 02/21/16 12/30/17 Furosemide [Lasix] 40 mg PO DAILY 09/24/16 12/30/17 Albuterol Sulfate [Proair Hfa 2 puffs INH Q4HR PRN 11/25/16 12/30/17 Inhaler] Ascorbic Acid [Vitamin C] 1,000 mg PO DAILY 11/25/16 12/30/17 Cyanocobalamin (Vitamin B-12) 2 tab PO DAILY 11/25/16 12/30/17 [Vitamin B-12] Digoxin 125 mcg PO DAILY 11/25/16 12/30/17 Multivitamin [Multiple Vitamins] 1 tab PO DAILY 11/25/16 12/30/17 Albuterol Sulfate [Proair Hfa 2 puffs IH Q4HR PRN 12/30/17 12/30/17 Inhaler] Aspirin [Aspirin EC] 1 tab PO DAILY 12/30/17 12/30/17 Calcium Carbonate [Calcium] 1 tab PO DAILY 12/30/17 12/30/17 Cholecalciferol (Vitamin D3) 1 tab PO DAILY 12/30/17 12/30/17 [Vitamin D3] Diltiazem HCl [Diltiazem 24Hr ER] 1 tab PO DAILY 12/30/17 12/30/17 Metoprolol Succinate 1 tab PO DAILY 12/30/17 12/30/17 - Allergies Allergies/Adverse Reactions: Allergies Allergy/AdvReac Type Severity Reaction Status Date / Time adhesive AdvReac Rash Verified 12/30/17 04:36 lisinopril AdvReac Respiratory Verified 12/30/17 04:36 Review of Systems - Other Findings Other Findings: A comprehensive review of systems was performed the pertinent positives and negatives are stated above in the HPI and the remainder of the review of systems is negative. Exam - Vital Signs Reviewed Vital Signs: Yes Vital Signs: Vital Signs x48h Temp Pulse Resp BP Pulse Ox 12/30/17 06:00 127 H 16 141/83 H 100 12/30/17 05:20 126 H 16 106/81 H 96 12/30/17 04:41 129 H 19 137/87 H 100 12/30/17 04:18 36.7 C 133 H 24 125/72 99 - Physical Exam General Appearance: positive: Alert, Moderate distress (Nauseated with dry heaves), Anxious Eyes Bilateral: positive: Normal inspection, PERRL, EOMI, No lid inflammation, Conjunctivae nml, No scleral icterus ENT: positive: ENT inspection nml, Pharynx nml, Dry mucous membranes. negative : Purulent nasal drainage, Pharyngeal erythema, Oral lesions Neck: positive: Nml inspection, Thyroid nml, No JVD, Trachea midline. negative : Thyromegaly, Lymphadenopathy (R), Lymphadenopathy (L), Stiff neck, Carotid bruit, Tracheal deviation Respiratory: positive: Chest non-tender, No respiratory distress, Breath sounds nml. negative: Wheezes, Rales, Rhonchi Cardiovascular: positive: No murmur, No gallop, Irregularly irregular, Tachycardia Peripheral Pulses: positive: 2+ Abdomen: positive: No organomegaly, Nml bowel sounds, Tenderness, Abnml bowel sounds (Increased bowel sounds), Other (Distended abdomen). negative: Guarding , Rebound Back: positive: Nml inspection. negative: CVA tenderness (R), CVA tenderness (L ) Skin: positive: Color nml, No rash, Warm, Dry. negative: Cyanosis, Diaphoresis , Pallor Extremities: positive: Non-tender, Full ROM, Nml appearance, No pedal edema Neurologic/Psychiatric: positive: Oriented x3, CN's nml (2-12), Motor nml, Sensation nml, Mood/affect nml Conclusion/Plan - Problem List (1) Intractable nausea and vomiting Conclusion/Plan: The patient presents with intractable nausea vomiting for 3 days. At this point it is not clear as to what the cause of his her intractable nausea vomiting is. She could have a viral gastroenteritis as she does have some leukopenia with a bandemia but does not have any fevers or chills. The patient could also have a bowel obstruction as she has been constipated for the last 2 days. The patient's guaiac of the emesis was positive and this makes it suspicious for possibility of an upper GI bleed although she has not been having any melanotic stools and her hemoglobin is stable. It is also possible that the patient may have gastritis with some mild bleeding or that she could have some Pratima-Ohara type tear due to her continuous vomiting and retching for the last 3 days. The patient was given Decadron before this started making possible GI bleed and gastritis more likely. The patient does use aspirin but no NSAIDs or anticoagulants. For now it is apparent that the patient needs to be placed in observation for further treatment and evaluation. Plan: IV fluids IV antiemetics IV pain medications Abdominal x-ray and if abdominal pain continues and x-ray is negative we may need an abdominal CT IV Protonix 40 mg twice daily Carafate GI cocktail every 6 hours Monitor H&H every 6 if patient's hemoglobin is falling or there is more apparent hematemesis or melena we will need a surgical consult for possible EGD. N.p.o. except meds Hold aspirin and any other blood thinners Qualifiers: Vomiting type: unspecified Qualified Code(s): R11.2 - Nausea with vomiting , unspecified (2) Atrial fibrillation with RVR Conclusion/Plan: Patient presents the emergency drop department with intractable nausea vomiting , dehydration and acute kidney injury. The patient appears to have dehydration which is likely contributing to her being tachycardic. The patient does have history of atrial fibrillation and is in rapid atrial fibrillation. The patient 's heart rate is ranging between 120-140 in the emergency department. This is likely also due to the fact that she has not been able to keep down her rate control medications. The patient has a chads 2 score of 2 but is not on any anticoagulation given history of GI bleeding and large hematoma in her leg. Plan: Continue patient's oral metoprolol, digoxin and diltiazem if patient is not able to tolerate and heart rate continues to be elevated we will give her IV metoprolol 5 mg every 6 hours Telemetry monitoring IV fluids (3) BERTRAND (acute kidney injury) Conclusion/Plan: Patient does have acute kidney injury with a creatinine of 1.9 which is elevated from baseline of 1.1 just 3 days earlier. Patient appears to have prerenal azotemia as her BUN is 52. This appears likely secondary to her intractable nausea vomiting and dehydration. Plan: IV fluids Monitor creatinine Avoid nephrotoxic agents Hold Lasix (4) Hypokalemia Conclusion/Plan: The patient's potassium on presentation is low at 3.3. It appears the patient has hypokalemia secondary to intractable vomiting and dehydration. The patient will be given supplemental potassium and will continue to monitor the patient's potassium daily. We will hold the patient's Lasix. (5) Hyperbilirubinemia Conclusion/Plan: The patient does have hyperbilirubinemia with a bilirubin of 1.7 on presentation. The patient appears to have chronically elevated bilirubin as in the past the patient's bilirubin has ranged between 0.8-1.9. It is unclear as to why the patient's bilirubin has been elevated in the past but this does not appear to be related to her current condition. If the patient's bilirubin does continue to rise we will consider getting an abdominal ultrasound to look for possible stone. For now we will continue to monitor the patient's bilirubin daily. (6) Asthma Conclusion/Plan: The patient has a history of asthma and was a previous smoker. The patient currently does not appear to be in any asthma exacerbation. The patient is not having any wheezing or respiratory distress. The patient will be placed on Albuterol neb as needed while she is hospitalized. Qualifiers: Asthma severity: mild Asthma persistence: intermittent Asthma complication type: unspecified Qualified Code(s): J45.20 - Mild intermittent asthma, uncomplicated (7) GERD (gastroesophageal reflux disease) Conclusion/Plan: Patient has a history of GERD and states that she has having symptoms of GERD currently with her intractable nausea vomiting and retching. The patient will be placed on IV Protonix, Carafate and a GI cocktail while she is hospitalized. We will try to control her symptoms. Patient is going to be n.p.o. Qualifiers: Esophagitis presence: with esophagitis Qualified Code(s): K21.0 - Gastro- esophageal reflux disease with esophagitis (8) Hyperlipidemia Conclusion/Plan: Patient has a history of hyperlipidemia and is on statin at home. The patient will be continued on her home dose of statin while she is hospitalized. Qualifiers: Hyperlipidemia type: unspecified Qualified Code(s): E78.5 - Hyperlipidemia , unspecified (9) Hypothyroidism Conclusion/Plan: Patient is a history of hypothyroidism and is on Synthroid at home. Currently she appears to be stable. We will continue her home dose of Synthroid and check a TSH while she is hospitalized. Qualifiers: Hypothyroidism type: unspecified Qualified Code(s): E03.9 - Hypothyroidism , unspecified (10) Osteoarthritis Conclusion/Plan: Patient has osteoarthritis with chronic back pain. The patient does take Vicodin at home for her back pain. The patient states that her pain is becoming uncontrolled in the emergency department. If the patient is unable to tolerate p.o. pain medication the patient will be placed on small dose of IV morphine for pain control. We will continue the patient on Vicodin if she can tolerate and her normal home medication. We will avoid all NSAIDs, aspirin and steroids. Qualifiers: Osteoarthritis location: multiple joints Osteoarthritis type: unspecified Qualified Code(s): M15.9 - Polyosteoarthritis, unspecified - Lab Results Lab results reviewed: Yes Fish Bones: 12/30/17 04:30 12/30/17 04:30 Other Lab Results: Laboratory Results WBC 2.7 x10^3/uL (4.8-10.8) L 12/30/17 04:30 RBC 4.44 10^6/uL (4.20-5.40) 12/30/17 04:30 Hgb 13.9 g/dL (12.0-16.0) 12/30/17 04:30 Hct 41.9 % (37.0-47.0) 12/30/17 04:30 MCV 94.3 fL (81.0-99.0) 12/30/17 04:30 MCH 31.2 pg (27.0-31.0) H 12/30/17 04:30 MCHC 33.1 g/dL (32.0-36.0) 12/30/17 04:30 RDW 15.5 % (12.0-15.0) H 12/30/17 04:30 Plt Count 262 10^3/uL (130-450) 12/30/17 04:30 MPV 8.5 fL (7.9-10.8) 12/30/17 04:30 Neut # (Auto) Not Reportable 12/30/17 04:30 Lymph # (Auto) Not Reportable 12/30/17 04:30 Wharton # (Auto) Not Reportable 12/30/17 04:30 Eos # (Auto) Not Reportable 12/30/17 04:30 Baso # (Auto) Not Reportable 12/30/17 04:30 Absolute Nucleated RBC Not Reportable 12/30/17 04:30 Total Counted 100 12/30/17 04:30 Band Neuts % (Manual) 19 % (0-10) H 12/30/17 04:30 Abnorm Lymph % (Manual) 0 % 12/30/17 04:30 Nucleated RBC % Not Reportable 12/30/17 04:30 Neutrophils # (Manual) 1.8 10^3/uL (1.5-6.6) 12/30/17 04:30 Lymphocytes # (Manual) 0.5 10^3/uL (1.5-3.5) L 12/30/17 04:30 Monocytes # (Manual) 0.4 10^3/uL (0.0-1.0) 12/30/17 04:30 Eosinophils # (Manual) 0.0 10^3/uL (0-0.7) 12/30/17 04:30 Basophils # (Manual) 0.0 10^3/uL (0-0.1) 12/30/17 04:30 Differential Comment MANUAL DIFFERENTIAL 12/30/17 04:30 Platelet Estimate NORMAL (130-450,000) (NORMAL) 12/30/17 04:30 RBC Morph Micro Appear NORMAL APPEARANCE (NORMAL) 12/30/17 04:30 PT 12.5 secs (9.9-12.6) 12/30/17 04:30 INR 1.1 (0.8-1.2) 12/30/17 04:30 APTT 24.0 secs (24.9-33.3) L 12/30/17 04:30 Sodium 136 mmol/L (135-145) 12/30/17 04:30 Potassium 3.3 mmol/L (3.5-5.0) L 12/30/17 04:30 Chloride 92 mmol/L (101-111) L 12/30/17 04:30 Carbon Dioxide 29 mmol/L (21-32) 12/30/17 04:30 Anion Gap 15.0 (6-13) H 12/30/17 04:30 BUN 52 mg/dL (6-20) H 12/30/17 04:30 Creatinine 1.9 mg/dL (0.4-1.0) H 12/30/17 04:30 Estimated GFR (MDRD) 25 (>89) L 12/30/17 04:30 Glucose 179 mg/dL (70-100) H 12/30/17 04:30 Calcium 9.8 mg/dL (8.5-10.3) 12/30/17 04:30 Total Bilirubin 1.7 mg/dL (0.2-1.0) H 12/30/17 04:30 AST 33 IU/L (10-42) 12/30/17 04:30 ALT 22 IU/L (10-60) 12/30/17 04:30 Alkaline Phosphatase 79 IU/L (42-121) 12/30/17 04:30 Total Protein 7.5 g/dL (6.7-8.2) 12/30/17 04:30 Albumin 4.1 g/dL (3.2-5.5) 12/30/17 04:30 Globulin 3.4 g/dL (2.1-4.2) 12/30/17 04:30 Albumin/Globulin Ratio 1.2 (1.0-2.2) 12/30/17 04:30 Lipase 20 U/L (22-51) L 12/30/17 04:30 Last Dose Date UNK 12/30/17 04:30 Last Dose Time UNK 12/30/17 04:30 Digoxin 0.4 ng/mL 12/30/17 04:30 Blood Type O NEGATIVE 12/30/17 04:30 Antibody Screen NEGATIVE 12/30/17 04:30 Core Measures - Anticipated LOS I expect patient to be DC'd or transferred within 96 hours.: Yes - DVT/VTE - Prophylaxis VTE/DVT Device ordered at admit?: Yes
[2017-12-30] MEDS ORDERED: PROMETHAZINE INJ 12.5 MG in SODIUM CHLORIDE 0.9% 50 ML IV STA (06:35)
[2017-12-30] MEDS ORDERED: ALBUTEROL NEB 2.5 MG/3 ML INH PRN (07:06)
--- NOTE | 2017-12-30 07:12 | XRAY Report ---
Reason: Abdominal pain and vomiting Procedure Date: 12/30/2017 Accession Number: [id number] / [id number] Procedure: XR - Abdomen Acute CPT Code: FULL RESULT: EXAM: ABDOMINAL SERIES AND PA CHEST EXAM DATE: 12/30/2017 06:57 AM. CLINICAL HISTORY: Abdominal pain and vomiting. COMPARISON: 04/04/2014. TECHNIQUE: 2 views abdomen and 1 view chest. FINDINGS: CHEST: Lungs/Pleura: Right lower lobe opacity. No vascular congestion. No pneumothorax. There may be a small right pleural effusion. Mediastinum: Cardiomegaly. Aortic atherosclerosis. ABDOMEN: Bowel Gas Pattern: Markedly dilated loops of small bowel noted in the mid abdomen. Gaseous distention with fluid level in the stomach. No portal venous gas or pneumatosis. Free Air: None. Other: Levoscoliosis of the lumbar spine. Degenerative changes of the thoracic and lumbar spine. Degenerative changes of both shoulders. IMPRESSION: 1. Right lower lobe consolidation/atelectasis. Possible small right pleural effusion. 2. Marked small bowel dilatation suggesting bowel obstruction. Consider further detail with CT. 3. No free air. RADIA
[2017-12-30] MEDS: PANTOPRAZOLE 40 MG VIAL IVP SCH ×2 (07:34→16:53)
[2017-12-30] MEDS: SUCRALFATE 1 GM/10 ML UDC PO SCH ×3 (07:34→16:53)
[2017-12-30] MEDS: SODIUM CHLORIDE FLUSH 0.9% 10 ML SYRINGE IVP PRN ×2 (07:35→10:58)
[2017-12-30] MEDS: LEVOTHYROXINE 25 MCG TABLET PO SCH (07:36)
[2017-12-30] MEDS: GI COCKTAIL 120 ML BOTTLE PO SCH ×3 (07:57→19:05)
[2017-12-30] MEDS: NS W/20 MEQ KCL 1,000 ML IV SCH ×2 (08:14→19:05)
[2017-12-30] MEDS ORDERED: DILTIAZEM HCL PO SCH (09:00)
[2017-12-30] MEDS: HYDROcod/ACETAM 5/325 MG TABLET PO PRN (10:06)
[2017-12-30] MEDS: DIGOXIN 125 MCG TABLET PO SCH (10:25)
[2017-12-30] MEDS: POLYETHYLENE GLYCOL 3350 17 GM PACKET PO SCH (10:26)
[2017-12-30] MEDS: SODIUM CHLORIDE FLUSH 0.9% 10 ML SYRINGE IVP SCH ×2 (10:26→16:54)
[2017-12-30 10:32] LABS: BASOPHILS % (AUTO) 0.1 %; HGB - HEMOGLOBIN 13.3 g/dL (12.0-16.0); LYMPHOCYTES # (AUTO) 0.2 10^3/uL (1.5-3.5); LYMPHOCYTES % (AUTO) 5.5 %; MEAN CORPUSCULAR HEMOGLOBIN 31.9 pg (27.0-31.0); MEAN PLATELET VOLUME 8.6 fL (7.9-10.8); MONOCYTES # (AUTO) 0.4 10^3/uL (0.0-1.0); MONOCYTES % (AUTO) 11.8 %; NEUTROPHILS # (AUTO) 2.7 10^3/uL (1.5-6.6); NEUTROPHILS % (AUTO) 82.6 %; PLT - PLATELET COUNT 245 10^3/uL (130-450); RED BLOOD COUNT 4.18 10^6/uL (4.20-5.40); RED CELL DISTRIBUTION WIDTH 15.7 % (12.0-15.0); WHITE BLOOD COUNT 3.3 x10^3/uL (4.8-10.8)
[2017-12-30] MEDS ORDERED: DIGOXIN 500 MCG/2 ML AMP IVP STA (10:39)
[2017-12-30] MEDS: METOPROLOL SUCCINATE 50 MG TABLET PO SCH (11:35)
--- NOTE | 2017-12-30 17:30 | PROVIDER PROGRESS NOTE ---
Hospitalist Cross-cover Note - Cross-Cover Note Cross-Cover Note: December 30, 2017 5:27 PM The patient was observed by me and by nursing today. Several times she would stick her finger into the side of her throat and mouth to induce vomiting. She would then complain of nausea and vomiting. I did explain to her that she is admitted for intractable nausea and vomiting and to induce the vomiting deliberately is counterproductive. She was annoyed. Said that it helps her with her stomach and indigestion. I asked her to do not do so. If she was continued to have nausea and vomiting we needed to do an NG tube to empty her stomach. She is also having foul-smelling diarrhea. She has generalized aching abdominal pain. Temperature 36.4 pulse is 105 blood pressure 108/5394% on room air and respiratory rate is 18. She is intermittently alert and alternates with sleepiness that easily awakens to voice. She has clear lungs. And intermittently tachycardic atrial fibrillation rate is irregularly irregular. Generalized abdominal ache, with hyperactive bowel sounds. No rebound or guarding. Lactic acid benji to 3.1 this morning. With hydration lactic acid went to 2.1 and then 1.6. An acute abdominal series was done for the elevated lactic acid and generalized abdominal pain. She had a right lower lobe opacity, cardiomegaly, markedly dilated loops of small bowel noted in the mid abdomen with gaseous distention with fluid level in the stomach. No free air. Assessment/plan, intractable nausea and vomiting in the face of a patient who may have a small bowel obstruction and is also deliberately inducing vomiting. If she has emesis again will need to place an NG tube. Will order CT of the abdomen. We will also order Clostridium difficile toxin because of the some foul-smelling diarrhea. Continue IV hydration, pain management, antiemetics.
[2017-12-30] MEDS ORDERED: IOPAMIDOL-300 50 ML VIAL ONE (18:01)
[2017-12-30] MEDS ORDERED: IOPAMIDOL-300 50 ML VIAL PO ONE (19:25)
--- NOTE | 2017-12-30 20:24 | CT Report ---
Reason: N/V, DILATED LOOPS BOWEL Procedure Date: 12/30/2017 Accession Number: [id number] / [id number] Procedure: CT - Abdomen/Pelvis W/O CPT Code: FULL RESULT: EXAM: CT ABDOMEN AND PELVIS WITHOUT CONTRAST. EXAM DATE: 12/30/2017 07:16 PM. CLINICAL HISTORY: Nausea, vomiting, diarrhea. COMPARISONS: None. TECHNIQUE: Routine helical CT imaging was performed through the abdomen and pelvis. IV contrast: None. Enteric contrast: Diluted 50 cc Isovue. Reconstructions: Coronal and sagittal. In accordance with CT protocol optimization, one or more of the following dose reduction techniques were utilized for this exam: automated exposure control, adjustment of mA and/or KV based on patient size, or use of iterative reconstructive technique. FINDINGS: Lung Bases: Moderate cardiomegaly. Reticulonodular infiltrates basilar segments right lower lobe and to a much lesser extent right middle lobe. Tiny bilateral pleural effusions. Liver: Normal. No masses. Gallbladder/Bile Ducts: Unremarkable. Spleen: Normal. Pancreas: Normal. Adrenal Glands: Normal. Kidneys: Normal. 4 cm left renal cyst. No solid masses or hydronephrosis. Peritoneal Cavity/Bowel: Moderate to marked dilatation of the stomach. Moderate to marked dilatation proximal third of the small bowel, measuring 4 cm in diameter. Mild to moderate distention of the rest of the small bowel with transition to small caliber terminal ileum, approximately 8 cm from the ileocecal valve, axial image 55 coronal image 15. Multiple diverticuli throughout the small caliber colon. No free air nor free fluid. No significant adenopathy. Excellent appendix not visualized but no inflammatory changes adjacent to the cecum. Oral contrast extends through to the mid ileum. No small bowel wall thickening. Pelvic Organs: Hysterectomy. No free fluid. No adnexal mass lesions nor stones in the small caliber urinary bladder. Vasculature: No aneurysms or other significant abnormality. Bones: Multilevel marked degenerative changes throughout the scoliotic spine. Other: None. IMPRESSION: 1. Tiny bilateral pleural effusions. 2. Right lower and middle lobe infiltrates. 3. Moderate cardiomegaly. 4. Moderate to marked distal small bowel obstruction. Transition point right lower quadrant. Gastric distention. NG tube advised. 5. Colonic diverticulosis. RADIA
[2017-12-31] MEDS: SUCRALFATE 1 GM/10 ML UDC PO SCH ×4 (00:05→15:55)
[2017-12-31] MEDS: GI COCKTAIL 120 ML BOTTLE PO SCH ×3 (00:05→11:37)
[2017-12-31] MEDS: SODIUM CHLORIDE FLUSH 0.9% 10 ML SYRINGE IVP SCH ×3 (00:06→15:55)
[2017-12-31] MEDS: LOPERAMIDE 2 MG CAPSULE PO PRN ×2 (05:44→15:58)
[2017-12-31] MEDS: NS W/20 MEQ KCL 1,000 ML IV SCH ×2 (05:47→14:41)
[2017-12-31 06:22] LABS: BASOPHILS % (AUTO) 0.1 %; EOSINOPHILS % (AUTO) 0.4 %; HGB - HEMOGLOBIN 12.4 g/dL (12.0-16.0); LYMPHOCYTES # (AUTO) 0.6 10^3/uL (1.5-3.5); LYMPHOCYTES % (AUTO) 6.8 %; MEAN CORPUSCULAR HEMOGLOBIN 31.4 pg (27.0-31.0); MEAN CORPUSCULAR HGB CONC 32.8 g/dL (32.0-36.0); MEAN CORPUSCULAR VOLUME 95.8 fL (81.0-99.0); MEAN PLATELET VOLUME 8.8 fL (7.9-10.8); MONOCYTES # (AUTO) 0.7 10^3/uL (0.0-1.0); MONOCYTES % (AUTO) 8.1 %; NEUTROPHILS # (AUTO) 7.7 10^3/uL (1.5-6.6); NEUTROPHILS % (AUTO) 84.6 %; PLT - PLATELET COUNT 196 10^3/uL (130-450); RED BLOOD COUNT 3.94 10^6/uL (4.20-5.40); RED CELL DISTRIBUTION WIDTH 16.2 % (12.0-15.0); WHITE BLOOD COUNT 9.1 x10^3/uL (4.8-10.8)
[2017-12-31 06:25] LABS: ALBUMIN 3.2 g/dL (3.2-5.5); ALBUMIN/GLOBULIN RATIO 1.2 (1.0-2.2); CALCIUM 7.4 mg/dL (8.5-10.3); CREATININE 1.5 mg/dL (0.4-1.0); MAGNESIUM 1.8 mg/dL (1.7-2.8); PHOSPHORUS 2.9 mg/dL (2.5-4.6); TOTAL PROTEIN 5.9 g/dL (6.7-8.2)
[2017-12-31] MEDS: LEVOTHYROXINE 25 MCG TABLET PO SCH (06:40)
[2017-12-31] MEDS: PANTOPRAZOLE 40 MG VIAL IVP SCH ×2 (06:43→15:55)
[2017-12-31] MEDS: SODIUM CHLORIDE FLUSH 0.9% 10 ML SYRINGE IVP PRN (06:44)
[2017-12-31] MEDS: DIGOXIN 125 MCG TABLET PO SCH (08:59)
[2017-12-31] MEDS: METOPROLOL SUCCINATE 50 MG TABLET PO SCH (08:59)
[2017-12-31] MEDS: POLYETHYLENE GLYCOL 3350 17 GM PACKET PO SCH (08:59)
[2017-12-31] MEDS ORDERED: IBUPROFEN 400 MG TABLET PO PRN (17:27)
--- NOTE | 2017-12-31 17:32 | PROVIDER PROGRESS NOTE ---
Subjective - Prog Note Date Prog Note Date: 12/31/17 Prog Note Time: 17:42 - Subjective Pt reports feeling: Improved Subjective: She is so improved that she is angry that she is still here. She does not understand what is going on. She remembers seeing me yesterday. And tells me that she is still angry with me because I told her she was bulimic. I quickly and gently corrected her and told her that I never told her she was bulimic. What I told her was to stop taking her fingers down her throat and making herself vomit. She was admitted for intractable nausea and vomiting. It only confuses the picture if you are sticking your fingers down your throat to make herself vomit. Is her intractable nausea and vomiting from her deliberate gesture or is because she is sick. We quickly established that she had dilated loops of bowel on KUB. That led to a CT of the abdomen where she had moderate cardiomegaly. Reticular nodular infiltrates in the basal segments of the right lower lobe and right middle lobe. A liver that was normal. Moderate to marked dilation of the stomach. Moderate to marked dilation of the proximal third of the small bowel measuring 4 cm. She had mild to moderate distention of the rest of the small bowel with transition to small caliber terminal ileum. Multiple diverticuli throughout the small caliber colon. No free air or fluid. No adenopathy. Excellent appendix not visualized. (I do not know what that means) oral contrast extended through to the mid ileum. No small bowel wall thickening. She has had a hysterectomy. She is tells me that she is also had hernia repairs. And some type of groin surgery. I did try and call her son yesterday. But the number that is in [employer] is incorrect. She said that he is no longer there. He now lives with her. He lost his courtesy bus driver's license because of a DUI. He is able to walk to work. He works at [employer]. Current Medications - Current Medications Current Medications: Active Medications Acetaminophen (Tylenol) 650 mg PO Q4HR PRN PRN Reason: Pain 1 to 4 Hydrocodone Bitart/Acetaminophen ([place] 5/325) 1 tab PO Q4HR PRN PRN Reason: Pain 5 to 7 Last Admin: 12/30/17 10:06 Dose: 1 tab Hydrocodone Bitart/Acetaminophen ([place] 10 Mg/325 Mg) 1 tab PO Q4HR PRN PRN Reason: Pain 8 to 10 Albuterol () 2.5 mg INH RTQ4H PRN PRN Reason: Wheezing Digoxin (Lanoxin) 125 mcg PO DAILY [facility] Last Admin: 12/31/17 08:59 Dose: 125 mcg Potassium Chloride/Sodium Chloride (Normal Saline 0.9% W/20 Meq Kcl) 1,000 mls @ 100 mls/hr IV .Q10H [facility] Last Admin: 12/31/17 14:41 Dose: 100 mls/hr Ibuprofen (Motrin) 400 mg PO Q6HR PRN PRN Reason: PAIN Last Admin: 12/31/17 17:39 Dose: 400 mg Levothyroxine Sodium (Synthroid) 50 mcg PO QDAC [facility] Last Admin: 12/31/17 06:40 Dose: 50 mcg Loperamide HCl (Imodium) 2 mg PO QID PRN PRN Reason: Diarrhea Last Admin: 12/31/17 15:58 Dose: 2 mg Metoprolol Succinate (Toprol Xl) 100 mg PO DAILY [facility] Last Admin: 12/31/17 08:59 Dose: 100 mg Metoprolol Tartrate (Lopressor Inj) 5 mg IVP Q6H PRN PRN Reason: Heart Rate >110 Morphine Sulfate (Morphine (Carpuject)) 0.5 mg IVP Q2HR PRN PRN Reason: Pain 8 to 10 Ondansetron HCl (Zofran Inj) 4 mg IVP Q6HR PRN PRN Reason: Nausea / Vomiting Pantoprazole Sodium (Protonix) 40 mg IVP BIDAC [facility] Last Admin: 12/31/17 15:55 Dose: 40 mg Polyethylene Glycol (Miralax) 17 gm PO DAILY [facility] Last Admin: 12/31/17 08:59 Dose: Not Given Prochlorperazine Edisylate (Compazine Inj) 10 mg IVP Q6HR PRN PRN Reason: Nausea / Vomiting Last Admin: 12/30/17 10:31 Dose: 10 mg Promethazine HCl (Phenergan Inj) 25 mg IM Q6HR PRN PRN Reason: Nausea / Vomiting Sodium Chloride (Normal Saline Flush 0.9%) 10 ml IVP PRN PRN PRN Reason: NEEDED PER PROVIDER ORDERS Last Admin: 12/31/17 06:44 Dose: 10 ml Sodium Chloride (Normal Saline Flush 0.9%) 10 ml IVP 0100,0900,1700 HUONG Last Admin: 12/31/17 15:55 Dose: 10 ml Zolpidem Tartrate (Ambien) 5 mg PO QPM PRN PRN Reason: Insomnia Zolpidem [Ambien] 5 mg PO QPM PRN 02/14/16 Atorvastatin Calcium 60 mg PO QPM 02/21/16 Hydrocodone/Acetaminophen [Hydrocodon-Acetaminophen 5-325] 1 tab PO Q6H PRN Levothyroxine Sodium 50 mcg PO QDAC 02/21/16 Furosemide [Lasix] 40 mg PO DAILY 09/24/16 Ascorbic Acid [Vitamin C] 1,000 mg PO DAILY 11/25/16 Cyanocobalamin (Vitamin B-12) [Vitamin B-12] 2,000 mcg PO DAILY 11/25/16 Digoxin 125 mcg PO DAILY 11/25/16 Multivitamin [Multiple Vitamins] 1 tab PO DAILY 11/25/16 Albuterol Sulfate [Proair Hfa Inhaler] 2 puffs IH Q4HR PRN 12/30/17 Aspirin [Aspirin EC] 81 mg PO DAILY 12/30/17 Calcium Carbonate [Calcium] 600 mg PO DAILY 12/30/17 Cholecalciferol (Vitamin D3) [Vitamin D3] 400 units PO DAILY 12/30/17 Metoprolol Succinate 100 mg PO DAILY 12/30/17 Objective - Vital Signs/Intake & Output Reviewed Vital Signs: Yes Vital Signs: Vital Signs x48h Temp Pulse Resp BP Pulse Ox 12/31/17 15:35 37.1 C 91 24 122/60 98 12/31/17 13:27 36.2 C L 88 22 126/66 94 Intake & Output: Intake & Output 12/28/17 12/29/17 12/30/17 12/31/17 23:59 23:59 23:59 23:59 Intake Total 890 Balance 890 - Objective General Appearance: positive: No acute distress, Alert, Other (She is sitting up in bed, watching TV. I have to say she looks much better than yesterday. No more emesis, no more nausea, only generalized upper abdominal discomfort. She says that she is falling in love with her ice chips now.) Eyes Bilateral: positive: PERRL, EOMI ENT: positive: Pharynx nml Neck: positive: No JVD. negative: Stiff neck, Carotid bruit Respiratory: positive: Chest non-tender, Other (She does have prolonged and exhalation, almost but not quite a little wheeze when she gets excited and talking). negative: Wheezes, Rales, Rhonchi Cardiovascular: positive: Irregularly irregular, Systolic murmur. negative: Gallop/S4, Friction rub Abdomen: positive: Non-tender, No organomegaly, Other (Hypoactive bowel sounds, mild distention that his general). negative: Guarding, Rebound Skin: positive: Warm, Dry Extremities: positive: Full ROM, No pedal edema Neurologic/Psychiatric: positive: Oriented x3, CN's nml (2-12), Motor nml - Lab Results Fish Bones: 12/31/17 05:31 12/31/17 05:31 ABX Reporting Has patient been on IV antibiotics over the past 48 hours?: No Assessment/Plan - Problem List (1) Partial small bowel obstruction Impression: The patient presents with intractable nausea vomiting for 3 days. On admission it was not clear as to what the cause of her intractable nausea vomiting was from. She could have a viral gastroenteritis as she does have some leukopenia with a bandemia but does not have any fevers or chills. The patient could also have a bowel obstruction as she has been constipated for the last 2 days. The patient's guaiac of the emesis was positive and this makes it suspicious for possibility of an upper GI bleed although she has not been having any melanotic stools and her hemoglobin is stable. It is also possible that the patient may have gastritis with some mild bleeding or that she could have some Pratima- Ohara type tear due to her continuous vomiting and retching for the last 3 days. The patient was given Decadron before this started making possible GI bleed and gastritis more likely. The patient does use aspirin but no NSAIDs or anticoagulants. She was placed in observation for further treatment and evaluation.We then did a KUB and noted dilated small bowel loops. A CT of the abdomen confirms a partial small bowel obstruction. Proximal bowel was quite dilated all the way up into her stomach with lots of fluid and undigested food. It also did not help that the patient was taking her finger down her throat to make herself have emesis. We ordered an NG tube yesterday. However the patient stopped vomiting and did not want the NG tube and she does not have one in now. She has not had any more emesis since yesterday. She was having frequent loose liquid bowel that was incredibly foul-smelling. C. difficile negative. Culture has been submitted and is pending. Giardia check also ordered.She does not have a fever nor does she have an elevated white cell count. She is still passing flatus. Diarrhea has slowed down with the treatment of Imodium Plan: IV fluids Continue IV antiemetics Continue IV pain medications Continue IV Protonix 40 mg twice daily Carafate Stopped. GI cocktail every 6 hours Stopped. We Monitored H&H every 6 to see if patient's hemoglobin was falling and it wasn 't N.p.o. except meds and ice chips. She has stopped vomitting and really wants jello. I will order clear liquids. Hold aspirin and any other blood thinners Change from observation to inpatient status Right now there is no fever or white cell count. I will not consult surgery at this time. However of her status changes I will call them. She may need to be seen in the outpatient setting for a colonoscopy. She stated that she was offered a colonoscopy a few years ago. She told Dr. Taya Tamez that she would never do anything about it anyway so why do the colonoscopy. She tells me that she may have changed her mind depending on how this bowel obstruction resolves. Qualifiers: Vomiting type: unspecified Qualified Code(s): R11.2 - Nausea with vomiting , unspecified (2) Atrial fibrillation with RVR Conclusion/Plan: Patient presents the emergency drop department with intractable nausea vomiting , dehydration and acute kidney injury. The patient appears to have dehydration which is likely contributing to her being tachycardic. The patient does have history of atrial fibrillation and is in rapid atrial fibrillation. The patient 's heart rate is ranging between 120-140 in the emergency department. This is likely also due to the fact that she has not been able to keep down her rate control medications. The patient has a chads 2 score of 2 but is not on any anticoagulation given history of GI bleeding and large hematoma in her leg.Since hydration and treatment of nausea, her heart rate is gone down to the 80s and 90s Plan: Continue patient's oral metoprolol, digoxin and diltiazem if patient is not able to tolerate and heart rate continues to be elevated we will give her IV metoprolol 5 mg every 6 hours Telemetry monitoring IV fluids (3) BERTRAND (acute kidney injury) Conclusion/Plan: Patient does have acute kidney injury with a creatinine of 1.9 which is elevated from baseline of 1.1 just 3 days earlier. Patient appears to have prerenal azotemia as her BUN is 52. This appears likely secondary to her intractable nausea vomiting and dehydration.Today her creatinine is 1.2 and BUN is down Plan: IV fluids Continue Continue to Monitor creatinine Avoid nephrotoxic agents Hold Lasix (4) Hypokalemia Conclusion/Plan: Resolved. The patient's potassium on presentation was low at 3.3. It appears the patient has hypokalemia secondary to intractable vomiting and dehydration. The patient was given supplemental potassium and will continue to monitor the patient's potassium daily. We will hold the patient's Lasix. Today she is 3.7 (5) Hyperbilirubinemia Conclusion/Plan: The patient does have hyperbilirubinemia with a bilirubin of 1.7 on presentation. The patient appears to have chronically elevated bilirubin as in the past the patient's bilirubin has ranged between 0.8-1.9. It is unclear as to why the patient's bilirubin has been elevated in the past but this does not appear to be related to her current condition. If the patient's bilirubin does continue to rise we will consider getting an abdominal ultrasound to look for possible stone. For now we will continue to monitor the patient's bilirubin daily.CT of the abdomen does not show gallstones (6) Asthma Conclusion/Plan: The patient has a history of asthma and was a previous smoker. The patient currently does not appear to be in any asthma exacerbation. The patient is not having any wheezing or respiratory distress. The patient will be placed on Albuterol neb as needed while she is hospitalized.CT of the abdomen has lower cuts through the lung. It shows right midlung reticular nodular infiltrate. She may have been aspirating. But without fever or hypoxia or elevated white cell count will just continue to observe and not treat.During today's exam she does have prolonged and exhalation phase. But no dyspnea on exertion and no dyspnea while talking to me. Qualifiers: Asthma severity: mild Asthma persistence: intermittent Asthma complication type: unspecified Qualified Code(s): J45.20 - Mild intermittent asthma, uncomplicated (7) GERD (gastroesophageal reflux disease) Conclusion/Plan: Patient has a history of GERD and states that she has having symptoms of GERD currently with her intractable nausea vomiting and retching. The patient was placed on IV Protonix, Carafate and a GI cocktail while she is hospitalized. We will try to control her symptoms. Patient was n.p.o. Today I have stopped her Carafate and GI cocktail. She continues on Protonix. Will advance to clear liquids since she feels better without emesis, and is passing gas. She says that she sticks her finger down her throat only to release gas and help her belch. That is what she was trying to do yesterday. I asked her to please not do that while she is here. I understand that she does that to release the air gas but with her bowel obstruction it could be dangerous. Qualifiers: Esophagitis presence: with esophagitis Qualified Code(s): K21.0 - Gastro- esophageal reflux disease with esophagitis (8) Hyperlipidemia Conclusion/Plan: Patient has a history of hyperlipidemia and is on statin at home. The patient will be continued on her home dose of statin while she is hospitalized. Qualifiers: Hyperlipidemia type: unspecified Qualified Code(s): E78.5 - Hyperlipidemia , unspecified (9) Hypothyroidism Conclusion/Plan: Patient is a history of hypothyroidism and is on Synthroid at home. Currently she appears to be stable. We will continue her home dose of Synthroid and check a TSH while she is hospitalized. Qualifiers: Hypothyroidism type: unspecified Qualified Code(s): E03.9 - Hypothyroidism , unspecified (10) Osteoarthritis Conclusion/Plan: Patient has osteoarthritis with chronic back pain. The patient does take Vicodin at home for her back pain. The patient states that her pain is becoming uncontrolled in the emergency department. If the patient is unable to tolerate p.o. pain medication the patient will be placed on small dose of IV morphine for pain control. We will continue the patient on Vicodin if she can tolerate and her normal home medication. We will avoid all NSAIDs, aspirin and steroids. But today, she really does not want IV pain meds nor does she want Vicodin. She wants ibuprofen. We will give her 1 dose of ibuprofen. Watch her BUN and creatinine Qualifiers: Osteoarthritis location: multiple joints Osteoarthritis type: unspecified Qualified Code(s): M15.9 - Polyosteoarthritis, unspecified
[2018-01-01] MEDS: NS W/20 MEQ KCL 1,000 ML IV SCH ×2 (00:18→10:23)
[2018-01-01] MEDS: SODIUM CHLORIDE FLUSH 0.9% 10 ML SYRINGE IVP SCH ×3 (00:19→15:42)
[2018-01-01 06:38] LABS: ALBUMIN 2.9 g/dL (3.2-5.5); ALBUMIN/GLOBULIN RATIO 1.2 (1.0-2.2); BILIRUBIN,TOTAL 1.3 mg/dL (0.2-1.0); CALCIUM 7.6 mg/dL (8.5-10.3); CREATININE 1.4 mg/dL (0.4-1.0); MAGNESIUM 1.9 mg/dL (1.7-2.8); PHOSPHORUS 2.2 mg/dL (2.5-4.6); TOTAL PROTEIN 5.4 g/dL (6.7-8.2)
[2018-01-01 06:43] LABS: BASOPHILS % (AUTO) 0.2 %; EOSINOPHILS # (AUTO) 0.3 10^3/uL (0.0-0.7); EOSINOPHILS % (AUTO) 3.3 %; HGB - HEMOGLOBIN 12.5 g/dL (12.0-16.0); LYMPHOCYTES % (AUTO) 10.6 %; MEAN CORPUSCULAR HEMOGLOBIN 31.4 pg (27.0-31.0); MEAN CORPUSCULAR HGB CONC 32.7 g/dL (32.0-36.0); MEAN CORPUSCULAR VOLUME 95.9 fL (81.0-99.0); MEAN PLATELET VOLUME 8.6 fL (7.9-10.8); MONOCYTES % (AUTO) 10.3 %; NEUTROPHILS # (AUTO) 7.2 10^3/uL (1.5-6.6); NEUTROPHILS % (AUTO) 75.6 %; PLT - PLATELET COUNT 193 10^3/uL (130-450); RED BLOOD COUNT 3.97 10^6/uL (4.20-5.40); RED CELL DISTRIBUTION WIDTH 16.5 % (12.0-15.0); WHITE BLOOD COUNT 9.5 x10^3/uL (4.8-10.8)
[2018-01-01] MEDS: LEVOTHYROXINE 25 MCG TABLET PO SCH (08:00)
[2018-01-01] MEDS: SODIUM CHLORIDE FLUSH 0.9% 10 ML SYRINGE IVP PRN (08:01)
[2018-01-01] MEDS: PANTOPRAZOLE 40 MG VIAL IVP SCH ×2 (08:01→15:42)
[2018-01-01] MEDS: METOPROLOL SUCCINATE 50 MG TABLET PO SCH (08:17)
[2018-01-01] MEDS: DIGOXIN 125 MCG TABLET PO SCH (08:18)
[2018-01-01] MEDS: POLYETHYLENE GLYCOL 3350 17 GM PACKET PO SCH (08:19)
--- NOTE | 2018-01-01 09:28 | XRAY Report ---
Reason: dilated loops of bowel followup Procedure Date: 01/01/2018 Accession Number: [id number] / [id number] Procedure: XR - Abdomen 1 View X-Ray CPT Code: 64754 FULL RESULT: EXAM: ABDOMEN RADIOGRAPHY EXAM DATE: 01/01/2018 08:53 AM. CLINICAL HISTORY: Dilated loops of bowel followup. COMPARISON: ABDOMEN ACUTE 12/30/2017. TECHNIQUE: 1 view. FINDINGS: Bowel Gas Pattern: Gaseous distention of the stomach as before. No definite dilated loops of small bowel are seen, however on the prior study the dilated small bowel was much more apparent on the upright view. No abnormal stool burden. There is gas in the rectum. Other: None. IMPRESSION: No definite evidence of small bowel obstruction. RADIA
--- NOTE | 2018-01-01 14:27 | PROVIDER PROGRESS NOTE ---
Subjective - Prog Note Date Prog Note Date: 01/01/18 Prog Note Time: 14:41 - Subjective Subjective: Overall she has improved from the December 30 admission where she was vomiting all the time and using a finger. Yesterday she had no emesis. And once she was C. difficile negative and Campylobacter negative she was given Imodium and her diarrhea has stopped as well. So no foul-smelling stool as of yet. She continues to have a distended abdomen. She is belching all the time and is always feeling like she is about to vomit with all of the stuff getting to the back of her throat. No fever, no chills. KUB this morning continues to show a dilated stomach but her small bowel has definitely decompressed. She continues to have flatus. She is eating the clear liquids. She also does quite a bit of air swallowing when she is speaking and it does not help with the distended belly. Current Medications - Current Medications Current Medications: Active Medications Acetaminophen (Tylenol) 650 mg PO Q4HR PRN PRN Reason: Pain 1 to 4 Hydrocodone Bitart/Acetaminophen ([place] 5/325) 1 tab PO Q4HR PRN PRN Reason: Pain 5 to 7 Last Admin: 12/30/17 10:06 Dose: 1 tab Hydrocodone Bitart/Acetaminophen ([place] 10 Mg/325 Mg) 1 tab PO Q4HR PRN PRN Reason: Pain 8 to 10 Albuterol () 2.5 mg INH RTQ4H PRN PRN Reason: Wheezing Benzocaine/Butamben/Tetracaine HCl (Cetacaine [place]) 1 sprays TOP Q6H PRN PRN Reason: PAIN Digoxin (Lanoxin) 125 mcg PO DAILY FORMERLY [facility], [facility]1983 Last Admin: 01/01/18 08:18 Dose: 125 mcg Potassium Chloride/Sodium Chloride (Normal Saline 0.9% W/20 Meq Kcl) 1,000 mls @ 100 mls/hr IV .Q10H FOR[facility]LY [facility], [facility]1983 Last Infusion: 01/01/18 11:20 Dose: 0 mls/hr Levothyroxine Sodium (Synthroid) 50 mcg PO QDAC FOR[facility]LY [facility], [facility] Last Admin: 01/01/18 08:00 Dose: 50 mcg Lidocaine HCl (Xylocaine Viscous 2%) 1 ml MM ONCE ONE Stop: 01/01/18 14:42 Loperamide HCl (Imodium) 2 mg PO QID PRN PRN Reason: Diarrhea Last Admin: 12/31/17 15:58 Dose: 2 mg Lorazepam (Ativan Inj (Vial)) 0.5 mg IVP Q2H PRN PRN Reason: Anxiety Metoprolol Succinate (Toprol Xl) 100 mg PO DAILY FOR[facility]LY [facility], [facility] Last Admin: 01/01/18 08:17 Dose: 100 mg Metoprolol Tartrate (Lopressor Inj) 5 mg IVP Q6H PRN PRN Reason: Heart Rate >110 Morphine Sulfate (Morphine (Carpuject)) 0.5 mg IVP Q2HR PRN PRN Reason: Pain 8 to 10 Ondansetron HCl (Zofran Inj) 4 mg IVP Q6HR PRN PRN Reason: Nausea / Vomiting Pantoprazole Sodium (Protonix) 40 mg IVP BIDAC FOR[facility] Last Admin: 01/01/18 08:01 Dose: 40 mg Polyethylene Glycol (Miralax) 17 gm PO DAILY FOR[facility]LY [facility] Last Admin: 01/01/18 08:19 Dose: Not Given Prochlorperazine Edisylate (Compazine Inj) 10 mg IVP Q6HR PRN PRN Reason: Nausea / Vomiting Last Admin: 12/30/17 10:31 Dose: 10 mg Promethazine HCl (Phenergan Inj) 25 mg IM Q6HR PRN PRN Reason: Nausea / Vomiting Sodium Chloride (Normal Saline Flush 0.9%) 10 ml IVP PRN PRN PRN Reason: NEEDED PER PROVIDER ORDERS Last Admin: 01/01/18 08:01 Dose: 10 ml Sodium Chloride (Normal Saline Flush 0.9%) 10 ml IVP 0100,0900,1700 FOR[facility] Last Admin: 01/01/18 08:19 Dose: Not Given Zolpidem Tartrate (Ambien) 5 mg PO QPM PRN PRN Reason: Insomnia Zolpidem [Ambien] 5 mg PO QPM PRN 02/14/16 Atorvastatin Calcium 60 mg PO QPM 02/21/16 Hydrocodone/Acetaminophen [Hydrocodon-Acetaminophen 5-325] 1 tab PO Q6H PRN Levothyroxine Sodium 50 mcg PO QDAC 02/21/16 Furosemide [Lasix] 40 mg PO DAILY 09/24/16 Ascorbic Acid [Vitamin C] 1,000 mg PO DAILY 11/25/16 Cyanocobalamin (Vitamin B-12) [Vitamin B-12] 2,000 mcg PO DAILY 11/25/16 Digoxin 125 mcg PO DAILY 11/25/16 Multivitamin [Multiple Vitamins] 1 tab PO DAILY 11/25/16 Albuterol Sulfate [Proair Hfa Inhaler] 2 puffs IH Q4HR PRN 12/30/17 Aspirin [Aspirin EC] 81 mg PO DAILY 12/30/17 Calcium Carbonate [Calcium] 600 mg PO DAILY 12/30/17 Cholecalciferol (Vitamin D3) [Vitamin D3] 400 units PO DAILY 12/30/17 Metoprolol Succinate 100 mg PO DAILY 12/30/17 Objective - Vital Signs/Intake & Output Reviewed Vital Signs: Yes Vital Signs: Vital Signs x48h Temp Pulse Pulse Resp BP Pulse Ox 01/01/18 13:18 37.3 C 102 H 22 127/78 94 01/01/18 10:45 53 L 16 01/01/18 08:11 36.5 C 97 16 145/76 H 95 Intake & Output: Intake & Output 12/29/17 12/30/17 12/31/17 01/01/18 23:59 23:59 23:59 23:59 Intake Total 1050 2896.667 Output Total 150 200 Balance 900 2696.667 - Objective General Appearance: positive: Alert, Mild distress (More than anything she is very anxious because 1 she is bored, 2 she is so weak from lying in bed she is wobbly and 3 she is really afraid and then order an NG tube) Eyes Bilateral: positive: PERRL, EOMI ENT: positive: Pharynx nml Neck: positive: No JVD. negative: Stiff neck, Carotid bruit Respiratory: positive: Chest non-tender. negative: Wheezes, Rales, Rhonchi Cardiovascular: positive: Regular rate & rhythm, JVD present. negative: Gallop/ S4, Friction rub Abdomen: positive: Other (Distended abdomen with bowel sounds present. No rebound or guarding. Just some mild generalized aching.) Skin: positive: Warm, Dry Extremities: positive: Full ROM, No pedal edema Neurologic/Psychiatric: positive: Oriented x3, CN's nml (2-12), Motor nml - Lab Results Fish Bones: 01/01/18 06:00 01/01/18 06:00 Other Labs: Lab Results x24hrs 01/01/18 01/01/18 Range/Units 06:00 06:00 WBC 9.5 (4.8-10.8) x10^3/uL RBC 3.97 L (4.20-5.40) 10^6/uL Hgb 12.5 (12.0-16.0) g/dL Hct 38.1 (37.0-47.0) % MCV 95.9 (81.0-99.0) fL MCH 31.4 H (27.0-31.0) pg MCHC 32.7 (32.0-36.0) g/dL RDW 16.5 H (12.0-15.0) % Plt Count 193 (130-450) 10^3/uL MPV 8.6 (7.9-10.8) fL Neut # (Auto) 7.2 H (1.5-6.6) 10^3/uL Lymph # (Auto) 1.0 L (1.5-3.5) 10^3/uL [place] # (Auto) 1.0 (0.0-1.0) 10^3/uL Eos # (Auto) 0.3 (0.0-0.7) 10^3/uL Baso # (Auto) 0.0 (0.0-0.1) 10^3/uL Absolute Nucleated RBC 0.01 x10^3/uL Nucleated RBC % 0.1 /100WBC Sodium 141 (135-145) mmol/L Potassium 4.3 (3.5-5.0) mmol/L Chloride 114 H (101-111) mmol/L Carbon Dioxide 19 L (21-32) mmol/L Anion Gap 8.0 (6-13) BUN 41 H (6-20) mg/dL Creatinine 1.4 H (0.4-1.0) mg/dL Estimated GFR (MDRD) 36 L (>89) Glucose 72 (70-100) mg/dL Calcium 7.6 L (8.5-10.3) mg/dL Phosphorus 2.2 L (2.5-4.6) mg/dL Magnesium 1.9 (1.7-2.8) mg/dL Total Bilirubin 1.3 H (0.2-1.0) mg/dL AST 17 (10-42) IU/L ALT 15 (10-60) IU/L Alkaline Phosphatase 58 (42-121) IU/L Total Protein 5.4 L (6.7-8.2) g/dL Albumin 2.9 L (3.2-5.5) g/dL Globulin 2.5 (2.1-4.2) g/dL Albumin/Globulin Ratio 1.2 (1.0-2.2) ABX Reporting Has patient been on IV antibiotics over the past 48 hours?: No Assessment/Plan - Problem List (1) Partial small bowel obstruction Impression: The patient presents with intractable nausea vomiting for 3 days. On admission it was not clear as to what the cause of her intractable nausea vomiting was from. She could have a viral gastroenteritis as she does have some leukopenia with a bandemia but does not have any fevers or chills. The patient could also have a bowel obstruction as she has been constipated for the last 2 days. The patient's guaiac of the emesis was positive and this makes it suspicious for possibility of an upper GI bleed although she has not been having any melanotic stools and her hemoglobin is stable. It is also possible that the patient may have gastritis with some mild bleeding or that she could have some Pratima- Ohara type tear due to her continuous vomiting and retching for the last 3 days. The patient was given Decadron before this started making possible GI bleed and gastritis more likely. The patient does use aspirin but no NSAIDs or anticoagulants. She was placed in observation for further treatment and evaluation.We then did a KUB and noted dilated small bowel loops. A CT of the abdomen confirms a partial small bowel obstruction. Proximal bowel was quite dilated all the way up into her stomach with lots of fluid and undigested food. It also did not help that the patient was taking her finger down her throat to make herself have emesis. We ordered an NG tube 12/30. However the patient stopped vomiting and did not want the NG tube and she does not have one in now. She has not had any more emesis since 12/30. She was having frequent loose liquid bowel that was incredibly foul-smelling. C. difficile negative. Culture has been submitted and negative for C dif and campylobacter. Giardia check also ordered and pending. She does not have a fever nor does she have an elevated white cell count. She is still passing flatus. Diarrhea has slowed down with the treatment of Imodium. KUB on 01/01 with resolved dilation of small bowel but her stomach is very very distended. In spite of this she wants to eat more than the clear liquids and still declines NG placment. Plan: IV fluids Continue IV antiemetics Continue IV pain medications Continue IV Protonix 40 mg twice daily Carafate Stopped. GI cocktail every 6 hours Stopped. We Monitored H&H every 6 to see if patient's hemoglobin was falling and it wasn 't Was NPO the first day, then clear liquids, but I will not advance diet even though she wants it. I explained she is still exhibiting signs from that dilated stomach. Hold aspirin and any other blood thinners Changed from observation to inpatient status 12/31 There is still no fever or white cell count. I did not consult surgery but she continues to have some evidence of obstruction with her distended stomach. I will call for possible EGD. I will also have NG placed. She asks for something to calm her down since she is so scare. She may need to be seen in the outpatient setting for a colonoscopy. She stated that she was offered a colonoscopy a few years ago. She told Dr. Taya Tamez that she would never do anything about it anyway so why do the colonoscopy. She tells me that she may have changed her mind depending on how this bowel obstruction resolves. Qualifiers: Vomiting type: unspecified Qualified Code(s): R11.2 - Nausea with vomiting , unspecified (2) Atrial fibrillation with RVR Conclusion/Plan: Patient presented to the emergency department with intractable nausea vomiting, dehydration and acute kidney injury. The patient appears to have dehydration which is likely contributing to her being tachycardic. The patient does have history of atrial fibrillation and is in rapid atrial fibrillation. The patient 's heart rate is ranging between 120-140 in the emergency department. This is likely also due to the fact that she has not been able to keep down her rate control medications. The patient has a chads 2 score of 2 but is not on any anticoagulation given history of GI bleeding and large hematoma in her leg.Since hydration and treatment of nausea, her heart rate is gone down to the 80s and 90s and has remained there for 2nd day now. Plan: Continue patient's oral metoprolol, digoxin and diltiazem if patient is not able to tolerate and heart rate continues to be elevated we will give her IV metoprolol 5 mg every 6 hours Telemetry monitoring IV fluids (3) BERTRAND (acute kidney injury) Conclusion/Plan: Patient does have acute kidney injury with a creatinine of 1.9 which is elevated from baseline of 1.1 just 3 days earlier. Patient appears to have prerenal azotemia as her BUN is 52. This appears likely secondary to her intractable nausea vomiting and dehydration.Today her creatinine is 1.4 and BUN is down to 41. Plan: IV fluids Continue Continue to Monitor creatinine Avoid nephrotoxic agents Hold Lasix (4) Hypokalemia Conclusion/Plan: Resolved. The patient's potassium on presentation was low at 3.3. It appears the patient has hypokalemia secondary to intractable vomiting and dehydration. The patient was given supplemental potassium and will continue to monitor the patient's potassium daily. We will hold the patient's Lasix. Today she is 4.3 (5) Hyperbilirubinemia Conclusion/Plan: The patient does have hyperbilirubinemia with a bilirubin of 1.7 on presentation. The patient appears to have chronically elevated bilirubin as in the past the patient's bilirubin has ranged between 0.8-1.9. It is unclear as to why the patient's bilirubin has been elevated in the past but this does not appear to be related to her current condition. If the patient's bilirubin does continue to rise we will consider getting an abdominal ultrasound to look for possible stone. For now we will continue to monitor the patient's bilirubin daily. CT of the abdomen does not show gallstones (6) Asthma Conclusion/Plan: The patient has a history of asthma and was a previous smoker. The patient currently does not appear to be in any asthma exacerbation. The patient is not having any wheezing or respiratory distress. The patient will be placed on Albuterol neb as needed while she is hospitalized.CT of the abdomen has lower cuts through the lung. It shows right midlung reticular nodular infiltrate. She may have been aspirating. But without fever or hypoxia or elevated white cell count will just continue to observe and not treat. During today's exam she continues to have prolonged and exhalation phase. But no dyspnea on exertion and no dyspnea while talking to me. Qualifiers: Asthma severity: mild Asthma persistence: intermittent Asthma complication type: unspecified Qualified Code(s): J45.20 - Mild intermittent asthma, uncomplicated (7) GERD (gastroesophageal reflux disease) Conclusion/Plan: Patient has a history of GERD and states that she has having symptoms of GERD currently with her intractable nausea vomiting and retching. The patient was placed on IV Protonix, Carafate and a GI cocktail when she was initially hospitalized. Continued PPI but carafate and GI cocktail stopped when we realized most of her symptoms were from the partial SBO. Patient was n.p.o. then clears and wants to advance diet. . She says that she sticks her finger down her throat only to release gas and help her belch. That is what she was trying to do 12/31. I asked her to please not do that while she is here. I understand that she does that to release the air gas but with her bowel obstruction it could be dangerous. Qualifiers: Esophagitis presence: with esophagitis Qualified Code(s): K21.0 - Gastro- esophageal reflux disease with esophagitis (8) Hyperlipidemia Conclusion/Plan: Patient has a history of hyperlipidemia and is on statin at home. The patient will be continued on her home dose of statin while she is hospitalized. Qualifiers: Hyperlipidemia type: unspecified Qualified Code(s): E78.5 - Hyperlipidemia , unspecified (9) Hypothyroidism Conclusion/Plan: Patient is a history of hypothyroidism and is on Synthroid at home. Currently she appears to be stable. We will continue her home dose of Synthroid and check a TSH while she is hospitalized. Qualifiers: Hypothyroidism type: unspecified Qualified Code(s): E03.9 - Hypothyroidism , unspecified (10) Osteoarthritis Conclusion/Plan: Patient has osteoarthritis with chronic back pain. The patient does take Vicodin at home for her back pain. The patient states that her pain is becoming uncontrolled in the emergency department. If the patient is unable to tolerate p.o. pain medication the patient will be placed on small dose of IV morphine for pain control. We will continue the patient on Vicodin if she can tolerate and her normal home medication. We will avoid all NSAIDs, aspirin and steroids. But today, she really does not want IV pain meds nor does she want Vicodin. She wanted ibuprofen. Gave her 1 dose of ibuprofen. Watch her BUN and creatinine Qualifiers: Osteoarthritis location: multiple joints Osteoarthritis type: unspecified Qualified Code(s): M15.9 - Polyosteoarthritis, unspecified
[2018-01-01] MEDS ORDERED: BENZOCAINE/TETRACAINE/BUTAMBEN 20 GM TOP PRN (14:39)
[2018-01-01] MEDS ORDERED: LIDOCAINE VISCOUS 2% 15 ML UDC MM ONE (14:41)
[2018-01-01] MEDS: LORazepam 2 MG/ML VIAL IVP PRN (15:42)
--- NOTE | 2018-01-01 18:33 | CONSULTATION NOTE ---
DATE OF SERVICE: 01/01/2018 Physician: David Curry MD HISTORY OF PRESENT ILLNESS: An 82-year-old, white female patient was admitted 2 days ago with a part ial small-bowel obstruction. She had developed pain in her abdomen at home with some vomiting. Sinc e she has been in the hospital for the last 48 hours, she has been passing flatus and having diarrhea stools, and most recent abdominal series shows improvement, although there is gastric distention flavia t remains. PHYSICAL EXAMINATION: Patient is having no abdominal pain whatsoever, lying in bed. Her abdomen is not distended; it is soft. There is no significant abdominal tenderness. The patient is passing fla tus while I am examining her. OVERALL IMPRESSION: Patient has a resolving partial small-bowel obstruction. This is very likely fr om adhesions, which may be related to a hysterectomy 40 years ago. TREATMENT PLAN: My plan is to continue careful observation. She may start a clear liquid diet and w ill repeat abdominal films in the x-ray department tomorrow to look for further resolution of her par tial obstruction. TD: 01/01/2018 16:48
[2018-01-02] MEDS: NS W/20 MEQ KCL 1,000 ML IV SCH ×3 (00:36→20:06)
[2018-01-02 04:32] LABS: GLUCOSE, URINE (UA) NEGATIVE (NEGATIVE); KETONES,URINE (UA) TRACE mg/dL (NEGATIVE); LEUKOCYTE ESTERASE, URINE SMALL (NEGATIVE); NITRITE,URINE NEGATIVE (NEGATIVE); OCCULT BLOOD,URINE NEGATIVE (NEGATIVE); PROTEIN,URINE TRACE mg/dL (NEGATIVE); UROBILINOGEN,URINE 0.2 (NORMAL) E.U./dL (NORMAL)
[2018-01-02 04:33] LABS: BILIRUBIN,URINE NEGATIVE (NEGATIVE); CLARITY,URINE CLEAR (CLEAR); ICTOTEST,URINE NEGATIVE
[2018-01-02 04:36] LABS: BACTERIA,URINE Rare /HPF (None Seen); RBC,URINE 0-5 /HPF (0-5); SQUAMOUS EPITHELIAL CELL,UR MANY Squamous (<= Few)
[2018-01-02] MEDS: LEVOTHYROXINE 25 MCG TABLET PO SCH (05:54)
[2018-01-02] MEDS: PANTOPRAZOLE 40 MG VIAL IVP SCH ×2 (05:55→16:27)
[2018-01-02] MEDS: SODIUM CHLORIDE FLUSH 0.9% 10 ML SYRINGE IVP PRN (05:57)
[2018-01-02 06:06] LABS: ALBUMIN 2.9 g/dL (3.2-5.5); ALBUMIN/GLOBULIN RATIO 1.1 (1.0-2.2); BILIRUBIN,TOTAL 1.3 mg/dL (0.2-1.0); CALCIUM 8.2 mg/dL (8.5-10.3); CREATININE 0.9 mg/dL (0.4-1.0); MAGNESIUM 1.8 mg/dL (1.7-2.8); PHOSPHORUS 1.6 mg/dL (2.5-4.6); TOTAL PROTEIN 5.6 g/dL (6.7-8.2)
[2018-01-02] MEDS: SODIUM CHLORIDE FLUSH 0.9% 10 ML SYRINGE IVP SCH ×3 (07:35→16:27)
[2018-01-02] MEDS: DIGOXIN 125 MCG TABLET PO SCH (08:33)
[2018-01-02] MEDS: METOPROLOL SUCCINATE 50 MG TABLET PO SCH (08:33)
[2018-01-02] MEDS: POLYETHYLENE GLYCOL 3350 17 GM PACKET PO SCH (08:39)
[2018-01-02] MEDS ORDERED: LEVALBUTEROL 1.25 MG/3 ML NEB INH PRN (09:11)
--- NOTE | 2018-01-02 09:17 | XRAY Report ---
Reason: followup of bowel loops and stomach distension Procedure Date: 01/02/2018 Accession Number: [id number] / [id number] Procedure: XR - Abdomen Acute CPT Code: FULL RESULT: EXAM: ABDOMINAL SERIES AND PA CHEST EXAM DATE: 01/02/2018 08:08 AM. CLINICAL HISTORY: Followup of bowel loops and stomach distension. COMPARISON: 01/01/2018 and 12/30/2017. TECHNIQUE: 2 views abdomen and 1 view chest. FINDINGS: CHEST: Lungs/Pleura: Small right pleural effusion. Mediastinum: Cardiomegaly, stable. ABDOMEN: Bowel Gas Pattern: No free air. Air-fluid level seen within a small bowel loop in the right abdomen. Overall decreased dilatation when compared to 12/30/2017. Other: None. IMPRESSION: Air-fluid level within single small bowel loop in right abdomen, overall decreased dilatation when compared to 12/30/17. Findings suggest resolving small bowel obstruction/ileus. RADIA
[2018-01-02 10:53] LABS: BASOPHILS % (AUTO) 0.1 %; EOSINOPHILS # (AUTO) 0.2 10^3/uL (0.0-0.7); HGB - HEMOGLOBIN 12.5 g/dL (12.0-16.0); LYMPHOCYTES # (AUTO) 0.7 10^3/uL (1.5-3.5); MEAN CORPUSCULAR HEMOGLOBIN 31.9 pg (27.0-31.0); MEAN CORPUSCULAR HGB CONC 33.4 g/dL (32.0-36.0); MEAN CORPUSCULAR VOLUME 95.7 fL (81.0-99.0); MEAN PLATELET VOLUME 8.4 fL (7.9-10.8); MONOCYTES # (AUTO) 1.5 10^3/uL (0.0-1.0); MONOCYTES % (AUTO) 14.4 %; NEUTROPHILS # (AUTO) 7.7 10^3/uL (1.5-6.6); NEUTROPHILS % (AUTO) 76.5 %; PLT - PLATELET COUNT 186 10^3/uL (130-450); RED BLOOD COUNT 3.91 10^6/uL (4.20-5.40); RED CELL DISTRIBUTION WIDTH 16.4 % (12.0-15.0); WHITE BLOOD COUNT 10.1 x10^3/uL (4.8-10.8)
[2018-01-02 11:19] LABS: RBC MORPHOLOGY (MULTIPLE) 2+ BURR CELLS (NORMAL)
--- NOTE | 2018-01-02 14:38 | PROVIDER PROGRESS NOTE ---
Subjective - Prog Note Date Prog Note Date: 01/02/18 Prog Note Time: 14:44 - Subjective Subjective: She was happy with how things were going this morning. Had gotten up to sit in the chair. Was happy that her diet had been advanced from clear liquids to full liquids. She is not eating much of it but is because she does not like it. She hesitates to go to a regular diet yet. She continues to have flatus. Denies any abdominal pain. Unfortunately she had a sudden episode of impending doom. Although her vitals are normal other than a fast heart rate of 160, she felt horrible. "I thought I was going to ". She denied chest pain, jaw pain, arm pain. No nausea but severe diaphoresis. It lasted about 5 minutes. Current Medications - Current Medications Current Medications: Active Medications Acetaminophen (Tylenol) 650 mg PO Q4HR PRN PRN Reason: Pain 1 to 4 Hydrocodone Bitart/Acetaminophen (Cobb 5/325) 1 tab PO Q4HR PRN PRN Reason: Pain 5 to 7 Last Admin: 12/30/17 10:06 Dose: 1 tab Hydrocodone Bitart/Acetaminophen (Cobb 10 Mg/325 Mg) 1 tab PO Q4HR PRN PRN Reason: Pain 8 to 10 Albuterol () 2.5 mg INH RTQ4H PRN PRN Reason: Wheezing Benzocaine/Butamben/Tetracaine HCl (Cetacaine [place]) 1 sprays TOP Q6H PRN PRN Reason: PAIN Digoxin (Lanoxin) 125 mcg PO DAILY HUONG Last Admin: 01/02/18 08:33 Dose: 125 mcg Potassium Chloride/Sodium Chloride (Normal Saline 0.9% W/20 Meq Kcl) 1,000 mls @ 100 mls/hr IV .Q10H HUONG Last Admin: 01/02/18 10:50 Dose: 100 mls/hr Levalbuterol HCl (Xopenex) 1.25 mg INH Q4H PRN PRN Reason: Shortness of Air/Wheezing Levothyroxine Sodium (Synthroid) 50 mcg PO QDAC HUONG Last Admin: 01/02/18 05:54 Dose: 50 mcg Loperamide HCl (Imodium) 2 mg PO QID PRN PRN Reason: Diarrhea Last Admin: 12/31/17 15:58 Dose: 2 mg Lorazepam (Ativan Inj (Vial)) 0.5 mg IVP Q2H PRN PRN Reason: Anxiety Metoprolol Succinate (Toprol Xl) 100 mg PO DAILY PENDING SALE TO [facility] Last Admin: 01/02/18 08:33 Dose: 100 mg Metoprolol Tartrate (Lopressor Inj) 5 mg IVP Q6H PRN PRN Reason: Heart Rate >110 Morphine Sulfate (Morphine (Carpuject)) 0.5 mg IVP Q2HR PRN PRN Reason: Pain 8 to 10 Ondansetron HCl (Zofran Inj) 4 mg IVP Q6HR PRN PRN Reason: Nausea / Vomiting Pantoprazole Sodium (Protonix) 40 mg IVP BIDAC PENDING SALE TO [facility] Last Admin: 01/02/18 05:55 Dose: 40 mg Polyethylene Glycol (Miralax) 17 gm PO DAILY PENDING SALE TO [facility] Last Admin: 01/02/18 08:39 Dose: Not Given Prochlorperazine Edisylate (Compazine Inj) 10 mg IVP Q6HR PRN PRN Reason: Nausea / Vomiting Last Admin: 12/30/17 10:31 Dose: 10 mg Promethazine HCl (Phenergan Inj) 25 mg IM Q6HR PRN PRN Reason: Nausea / Vomiting Sodium Chloride (Normal Saline Flush 0.9%) 10 ml IVP PRN PRN PRN Reason: NEEDED PER PROVIDER ORDERS Last Admin: 01/02/18 05:57 Dose: 10 ml Sodium Chloride (Normal Saline Flush 0.9%) 10 ml IVP 0100,0900,1700 PENDING SALE TO [facility] Last Admin: 01/02/18 13:12 Dose: Not Given Zolpidem Tartrate (Ambien) 5 mg PO QPM PRN PRN Reason: Insomnia Zolpidem [Ambien] 5 mg PO QPM PRN 02/14/16 Atorvastatin Calcium 60 mg PO QPM 02/21/16 Hydrocodone/Acetaminophen [Hydrocodon-Acetaminophen 5-325] 1 tab PO Q6H PRN Levothyroxine Sodium 50 mcg PO QDAC 02/21/16 Furosemide [Lasix] 40 mg PO DAILY 09/24/16 Ascorbic Acid [Vitamin C] 1,000 mg PO DAILY 11/25/16 Cyanocobalamin (Vitamin B-12) [Vitamin B-12] 2,000 mcg PO DAILY 11/25/16 Digoxin 125 mcg PO DAILY 11/25/16 Multivitamin [Multiple Vitamins] 1 tab PO DAILY 11/25/16 Albuterol Sulfate [Proair Hfa Inhaler] 2 puffs IH Q4HR PRN 12/30/17 Aspirin [Aspirin EC] 81 mg PO DAILY 12/30/17 Calcium Carbonate [Calcium] 600 mg PO DAILY 12/30/17 Cholecalciferol (Vitamin D3) [Vitamin D3] 400 units PO DAILY 12/30/17 Metoprolol Succinate 100 mg PO DAILY 12/30/17 Objective - Vital Signs/Intake & Output Reviewed Vital Signs: Yes Vital Signs: Vital Signs x48h Temp Pulse Pulse Resp BP BP Pulse Ox 01/02/18 12:34 36.3 C L 90 24 154/82 H 99 01/02/18 09:50 101 H 167/96 H 01/02/18 09:45 92 146/72 H 01/02/18 09:44 106 H 22 01/02/18 09:00 36.4 C L 110 H 26 H 146/81 H 98 Intake & Output: Intake & Output 12/30/17 12/31/17 01/01/18 01/02/18 23:59 23:59 23:59 23:59 Intake Total 1050 4008.667 1730 Output Total 150 300 200 Balance 900 3708.667 1530 - Objective General Appearance: positive: No acute distress, Alert, Other (She is now upright in the chair. Pulse rate is in the 60s and 70s. She has not had any further episodes since this morning.) Eyes Bilateral: positive: PERRL, EOMI ENT: positive: Pharynx nml, Dry mucous membranes Neck: positive: No JVD. negative: Stiff neck, Carotid bruit Respiratory: positive: Chest non-tender, Rales (At bases that clear with a deep cough). negative: Wheezes, Rhonchi Cardiovascular: positive: Irregularly irregular, Tachycardia (One episode this morning). negative: Gallop/S4, Friction rub Abdomen: positive: Non-tender, No organomegaly, Nml bowel sounds, No distention Extremities: positive: Full ROM, No pedal edema Neurologic/Psychiatric: positive: Oriented x3, CN's nml (2-12), Motor nml, Weakness - Lab Results Fish Bones: 01/02/18 10:31 01/02/18 05:40 Other Labs: Lab Results x24hrs 01/02/18 01/02/18 01/02/18 Range/Units 11:40 10:31 05:40 WBC 10.1 (4.8-10.8) x10^3/uL RBC 3.91 L (4.20-5.40) 10^6/uL Hgb 12.5 (12.0-16.0) g/dL Hct 37.4 (37.0-47.0) % MCV 95.7 (81.0-99.0) fL MCH 31.9 H (27.0-31.0) pg MCHC 33.4 (32.0-36.0) g/dL RDW 16.4 H (12.0-15.0) % Plt Count 186 (130-450) 10^3/uL MPV 8.4 (7.9-10.8) fL Neut # (Auto) 7.7 H (1.5-6.6) 10^3/uL Lymph # (Auto) 0.7 L (1.5-3.5) 10^3/uL Hoke # (Auto) 1.5 H (0.0-1.0) 10^3/uL Eos # (Auto) 0.2 (0.0-0.7) 10^3/uL Baso # (Auto) 0.0 (0.0-0.1) 10^3/uL Absolute Nucleated RBC 0.00 x10^3/uL Nucleated RBC % 0.0 /100WBC Manual Slide Review Indicated RBC Morph Micro Appear 2+ REYES CELLS (NORMAL) Sodium 140 (135-145) mmol/L Potassium 4.5 (3.5-5.0) mmol/L Chloride 115 H (101-111) mmol/L Carbon Dioxide 18 L (21-32) mmol/L Anion Gap 7.0 (6-13) BUN 26 H (6-20) mg/dL Creatinine 0.9 (0.4-1.0) mg/dL Estimated GFR (MDRD) 60 L (>89) Glucose 97 (70-100) mg/dL Calcium 8.2 L (8.5-10.3) mg/dL Phosphorus 1.6 L (2.5-4.6) mg/dL Magnesium 1.8 (1.7-2.8) mg/dL Total Bilirubin 1.3 H (0.2-1.0) mg/dL AST 16 (10-42) IU/L ALT 14 (10-60) IU/L Alkaline Phosphatase 57 (42-121) IU/L Troponin I 0.27 (<0.49) ng/mL Total Protein 5.6 L (6.7-8.2) g/dL Albumin 2.9 L (3.2-5.5) g/dL Globulin 2.7 (2.1-4.2) g/dL Albumin/Globulin Ratio 1.1 (1.0-2.2) Urine Color Urine Clarity (CLEAR) Urine pH (5.0-7.5) PH Ur Specific [place] (1.002-1.030) Urine Protein (NEGATIVE) mg/dL Urine Glucose (UA) (NEGATIVE) mg/dL Urine Ketones (NEGATIVE) mg/dL Urine Occult Blood (NEGATIVE) Urine Nitrite (NEGATIVE) Urine Bilirubin (NEGATIVE) Urine Urobilinogen (NORMAL) E.U./dL Ur Leukocyte Esterase (NEGATIVE) Urine RBC (0-5) /HPF Urine WBC (0-5) /HPF Ur Squamous Epith Cells (<= Few) Urine Bacteria (None Seen) /HPF Ur Microscopic Review Urine Culture Comments 01/02/18 Range/Units 04:15 WBC (4.8-10.8) x10^3/uL RBC (4.20-5.40) 10^6/uL Hgb (12.0-16.0) g/dL Hct (37.0-47.0) % MCV (81.0-99.0) fL MCH (27.0-31.0) pg MCHC (32.0-36.0) g/dL RDW (12.0-15.0) % Plt Count (130-450) 10^3/uL MPV (7.9-10.8) fL Neut # (Auto) (1.5-6.6) 10^3/uL Lymph # (Auto) (1.5-3.5) 10^3/uL [place] # (Auto) (0.0-1.0) 10^3/uL Eos # (Auto) (0.0-0.7) 10^3/uL Baso # (Auto) (0.0-0.1) 10^3/uL Absolute Nucleated RBC x10^3/uL Nucleated RBC % /100WBC Manual Slide Review RBC Morph Micro Appear (NORMAL) Sodium (135-145) mmol/L Potassium (3.5-5.0) mmol/L Chloride (101-111) mmol/L Carbon Dioxide (21-32) mmol/L Anion Gap (6-13) BUN (6-20) mg/dL Creatinine (0.4-1.0) mg/dL Estimated GFR (MDRD) (>89) Glucose (70-100) mg/dL Calcium (8.5-10.3) mg/dL Phosphorus (2.5-4.6) mg/dL Magnesium (1.7-2.8) mg/dL Total Bilirubin (0.2-1.0) mg/dL AST (10-42) IU/L ALT (10-60) IU/L Alkaline Phosphatase (42-121) IU/L Troponin I (<0.49) ng/mL Total Protein (6.7-8.2) g/dL Albumin (3.2-5.5) g/dL Globulin (2.1-4.2) g/dL Albumin/Globulin Ratio (1.0-2.2) Urine Color YELLOW Urine Clarity CLEAR (CLEAR) Urine pH 6.0 (5.0-7.5) PH Ur Specific [place] 1.010 (1.002-1.030) Urine Protein TRACE (NEGATIVE) mg/dL Urine Glucose (UA) NEGATIVE (NEGATIVE) mg/dL Urine Ketones TRACE (NEGATIVE) mg/dL Urine Occult Blood NEGATIVE (NEGATIVE) Urine Nitrite NEGATIVE (NEGATIVE) Urine Bilirubin NEGATIVE (NEGATIVE) Urine Urobilinogen 0.2 (NORMAL) (NORMAL) E.U./dL Ur Leukocyte Esterase SMALL H (NEGATIVE) Urine RBC 0-5 (0-5) /HPF Urine WBC 6-10 H (0-5) /HPF Ur Squamous Epith Cells MANY Squamous H (<= Few) Urine Bacteria Rare (None Seen) /HPF Ur Microscopic Review INDICATED Urine Culture Comments NOT INDICATED ABX Reporting Has patient been on IV antibiotics over the past 48 hours?: No Assessment/Plan - Problem List (1) Sense of impending doom Impression: It was sudden in onset. She had been having a good morning. Sitting up in bed and then in the chair in the room. Nothing new was going on. She was pleased that her stomach was getting better and better. Sudden onset of impending doom. Diffuse sweats. No chest pain. Heart rate shot up to the 160s. Even though her vitals were fine and her oxygen was fine she felt like "I was going to ". And that all went away. She took her metoprolol and 45 minutes later she was fine. She denies chest pain. She may been short of breath she does not know. No jaw pain or shoulder pain. No nausea. EKG was unchanged. Initial troponin is 0.25 and we will check it again 6 hours later. We are avoiding anticoagulation or platelet inhibitors because of her small bowel obstruction and gastritis. I will give her Lovenox 1, already on a beta-kate, will make sure she gets a statin. The elevated troponin may be from A. fib with RVR. (2) Partial small bowel obstruction Impression: Conclusion/Plan: Improving and almost resolved. The patient presents with intractable nausea vomiting for 3 days. On admission it was not clear as to what the cause of her intractable nausea vomiting was from. She could have a viral gastroenteritis as she does have some leukopenia with a bandemia but does not have any fevers or chills. The patient could also have a bowel obstruction as she has been constipated for the last 2 days. The patient's guaiac of the emesis was positive and this makes it suspicious for possibility of an upper GI bleed although she has not been having any melanotic stools and her hemoglobin is stable. It is also possible that the patient may have gastritis with some mild bleeding or that she could have some Pratima- Ohara type tear due to her continuous vomiting and retching for the last 3 days. The patient was given Decadron before this started making possible GI bleed and gastritis more likely. The patient does use aspirin but no NSAIDs or anticoagulants. She was placed in observation for further treatment and evaluation.We then did a KUB and noted dilated small bowel loops. A CT of the abdomen confirms a partial small bowel obstruction. Proximal bowel was quite dilated all the way up into her stomach with lots of fluid and undigested food. It also did not help that the patient was taking her finger down her throat to make herself have emesis. We ordered an NG tube 12/30. However the patient stopped vomiting and did not want the NG tube and she does not have one in now. She has had 1 emesis since 12/30. She was having frequent loose liquid bowel that was incredibly foul-smelling. C. difficile negative and culture negative for salmonella, shigella, e coli, and campylobacter. Giardia check also ordered and pending. She does not have a fever nor does she have an elevated white cell count. She is still passing flatus. Diarrhea slowed down with the treatment of Imodium. KUB on 01/01 with resolved dilation of small bowel but her stomach is very very distended. In spite of this she wants to eat more than the clear liquids and still declines NG placment. Today's acute abd series shows even better resolution of dilated bowel and stomach. Plan: IV fluids Continue IV antiemetics Continue IV pain medications Continue IV Protonix 40 mg twice daily Carafate Stopped. GI cocktail every 6 hours Stopped. We Monitored H&H every 6 to see if patient's hemoglobin was falling and it wasn 't Was NPO the first day, then clear liquids, and today advanced to full liquid. If she keeps that down, try regular diet. Hold aspirin and any other blood thinners Changed from observation to inpatient status 12/31 There is still no fever or white cell count. I had initially thought that I would not order a general surgery consult. However she worsens and one was ordered and she was seen by surgery yesterday. She stated that she was offered a colonoscopy a few years ago. She told Dr. Taya Tamez that she would never do anything about it anyway so why do the colonoscopy. She tells me that she may have changed her mind depending on how this bowel obstruction resolves. She is doing better. Qualifiers: Vomiting type: unspecified Qualified Code(s): R11.2 - Nausea with vomiting , unspecified (3) Atrial fibrillation with RVR Conclusion/Plan: Patient presented to the emergency department with intractable nausea vomiting, dehydration and acute kidney injury. The patient appeared to have dehydration which was likely contributing to her being tachycardic. The patient does have history of atrial fibrillation and is in rapid atrial fibrillation. The patient 's heart rate is ranging between 120-140 in the emergency department. This is likely also due to the fact that she has not been able to keep down her rate control medications. The patient has a chads 2 score of 2 but is not on any anticoagulation given history of GI bleeding and large hematoma in her leg.Since hydration and treatment of nausea, her heart rate is gone down to the 80s and 90s and has remained there for 3nd day now Until this morning. This morning she showed up to 160 with her "panic attack". She is now back down into the 80s and 90s.. Plan: Continue patient's oral metoprolol, digoxin and diltiazem if patient is not able to tolerate and heart rate continues to be elevated we will give her IV metoprolol 5 mg every 6 hours Telemetry monitoring IV fluids (4) BERTRAND (acute kidney injury) Conclusion/Plan: Resolved. Patient did have acute kidney injury with a creatinine of 1.9 which was elevated from baseline of 1.1 just 3 days earlier. Patient appeared to have prerenal azotemia as her BUN was 52. This appears likely secondary to her intractable nausea vomiting and dehydration.Today her creatinine is 0.9 and BUN is down to 26. Plan: IV fluids Continue until tonight then dc. Continue to Monitor creatinine Avoid nephrotoxic agents Hold Lasix for now. When she gets home can resume in a week. (5) Hypokalemia Conclusion/Plan: Resolved. The patient's potassium on presentation was low at 3.3. It appears the patient has hypokalemia secondary to intractable vomiting and dehydration. The patient was given supplemental potassium and will continue to monitor the patient's potassium daily. We will hold the patient's Lasix. Today she is 4.5 (6) Hyperbilirubinemia Conclusion/Plan: The patient did have hyperbilirubinemia with a bilirubin of 1.7 on presentation. The patient appeared to have chronically elevated bilirubin as in the past the patient's bilirubin has ranged between 0.8-1.9. It is unclear as to why the patient's bilirubin had been elevated in the past but this does not appear to be related to her current condition. If the patient's bilirubin had continued to rise we will have considered getting an abdominal ultrasound to look for possible stone. For now we will continue to monitor the patient's bilirubin daily and she went up to 2 to then go down to 1.3 for last [address] of the abdomen does not show gallstones (7) Asthma Conclusion/Plan: The patient has a history of asthma and was a previous smoker. The patient currently does not appear to be in any asthma exacerbation. The patient is not having any wheezing or respiratory distress. The patient will be placed on Albuterol neb as needed while she is hospitalized. CT of the abdomen has lower cuts through the lung. It shows right midlung reticular nodular infiltrate. She may have been aspirating. But without fever or hypoxia or elevated white cell count will just continue to observe and not treat. On exam she continues to have prolonged and exhalation phase. But no dyspnea on exertion and no dyspnea while talking to me. Qualifiers: Asthma severity: mild Asthma persistence: intermittent Asthma complication type: unspecified Qualified Code(s): J45.20 - Mild intermittent asthma, uncomplicated (8) GERD (gastroesophageal reflux disease) Conclusion/Plan: Patient has a history of GERD and states that she has having symptoms of GERD currently with her intractable nausea vomiting and retching. The patient was placed on IV Protonix, Carafate and a GI cocktail when she was initially hospitalized. Continued PPI but carafate and GI cocktail stopped when we realized most of her symptoms were from the partial SBO. Patient was n.p.o. then clears and today we will advance to full liquids. She says that she sticks her finger down her throat only to release gas and help her belch. That is what she was trying to do 12/31. I asked her to please not do that while she is here. I understand that she does that to release the air gas but with her bowel obstruction it could be dangerous. Qualifiers: Esophagitis presence: with esophagitis Qualified Code(s): K21.0 - Gastro- esophageal reflux disease with esophagitis (9) Hyperlipidemia Conclusion/Plan: Patient has a history of hyperlipidemia and is on statin at home. The patient will be continued on her home dose of statin while she is hospitalized. Qualifiers: Hyperlipidemia type: unspecified Qualified Code(s): E78.5 - Hyperlipidemia , unspecified (10) Hypothyroidism Conclusion/Plan: Patient is a history of hypothyroidism and is on Synthroid at home. Currently she appears to be stable. We will continue her home dose of Synthroid and check a TSH while she is hospitalized. Qualifiers: Hypothyroidism type: unspecified Qualified Code(s): E03.9 - Hypothyroidism , unspecified (11) Osteoarthritis Conclusion/Plan: Patient has osteoarthritis with chronic back pain. The patient does take Vicodin at home for her back pain. The patient states that her pain is becoming uncontrolled in the emergency department. If the patient is unable to tolerate p.o. pain medication the patient will be placed on small dose of IV morphine for pain control. We will continue the patient on Vicodin if she can tolerate and her normal home medication. We will avoid all NSAIDs, aspirin and steroids. But today, she really does not want IV pain meds nor does she want Vicodin. She wanted ibuprofen. Gave her 1 dose of ibuprofen. Watch her BUN and creatinine Qualifiers: Osteoarthritis location: multiple joints Osteoarthritis type: unspecified Qualified Code(s): M15.9 - Polyosteoarthritis, unspecified
--- NOTE | 2018-01-03 03:09 | CONSULTATION NOTE ---
DATE OF SERVICE: 01/02/2018 Physician: David Curry MD PROGRESS NOTE HISTORY: Patient is subjectively feeling no abdominal pain, had a panic attack earlier and spit up some Jell-O; otherwise, has had no nausea and vomiting, again no abdominal pain, and she is passing flatus. She has had no more bowel movements since last evening when she was continuing to have some liquid stools. PHYSICAL EXAMINATION VITAL SIGNS: She is afebrile. ABDOMEN: Soft. It is nontender. It is not distended. DIAGNOSTIC DATA: She had flat and upright abdominal films this morning, which I have reviewed and compared to her admission films done on 12/30/2017. There is marked improvement of her abdominal x-rays showing plenty of gas, which has now passed into the colon. There is still some nondistended small bowel gas pattern, again showing a possible resolving ileus. I do not think she is obstructed at this time, although she could have a mild small-bowel obstruction secondary to adhesions. ASSESSMENT: Improvement of her overall clinical condition and radiographs. PLAN: Plan is to advance her from a clear liquid to a full liquid diet and continue observation. Patient indeed has severe COPD, and I do not think she would be a candidate for surgery unless it is absolutely mandated by impending gangrenous bowel. She uses all of her accessory muscles of respiration just to breathe at rest, and if we have to operate on her, then she is going to be on a ventilator for a considerable time. At the moment, it appears that she is recovering and we will continue conservative care. TD: 01/02/2018 10:41 JORDON
[2018-01-03] MEDS: SODIUM CHLORIDE FLUSH 0.9% 10 ML SYRINGE IVP SCH ×3 (05:56→16:03)
[2018-01-03] MEDS: NS W/20 MEQ KCL 1,000 ML IV SCH (05:57)
[2018-01-03] MEDS: LEVOTHYROXINE 25 MCG TABLET PO SCH (06:00)
[2018-01-03] MEDS: PANTOPRAZOLE 40 MG VIAL IVP SCH ×2 (06:00→16:03)
[2018-01-03] MEDS: LORazepam 2 MG/ML VIAL IVP PRN ×2 (06:14→19:14)
[2018-01-03 06:45] LABS: ALBUMIN 2.9 g/dL (3.2-5.5); CALCIUM 8.5 mg/dL (8.5-10.3); MAGNESIUM 1.6 mg/dL (1.7-2.8); PHOSPHORUS 2.2 mg/dL (2.5-4.6); TOTAL PROTEIN 5.9 g/dL (6.7-8.2)
[2018-01-03] MEDS: DIGOXIN 125 MCG TABLET PO SCH (08:01)
[2018-01-03] MEDS: METOPROLOL SUCCINATE 50 MG TABLET PO SCH (08:01)
[2018-01-03] MEDS: POLYETHYLENE GLYCOL 3350 17 GM PACKET PO SCH (08:01)
[2018-01-03] MEDS ORDERED: IOPAMIDOL-300 100 ML VIAL ONE (09:23)
[2018-01-03 10:23] LABS: BASOPHILS % (AUTO) 0.3 %; EOSINOPHILS # (AUTO) 0.2 10^3/uL (0.0-0.7); EOSINOPHILS % (AUTO) 1.6 %; HGB - HEMOGLOBIN 12.7 g/dL (12.0-16.0); LYMPHOCYTES # (AUTO) 0.8 10^3/uL (1.5-3.5); LYMPHOCYTES % (AUTO) 8.1 %; MEAN CORPUSCULAR HEMOGLOBIN 31.7 pg (27.0-31.0); MEAN CORPUSCULAR HGB CONC 33.5 g/dL (32.0-36.0); MEAN CORPUSCULAR VOLUME 94.7 fL (81.0-99.0); MEAN PLATELET VOLUME 9.2 fL (7.9-10.8); MONOCYTES # (AUTO) 1.5 10^3/uL (0.0-1.0); MONOCYTES % (AUTO) 15.9 %; NEUTROPHILS # (AUTO) 7.2 10^3/uL (1.5-6.6); NEUTROPHILS % (AUTO) 74.1 %; PLT - PLATELET COUNT 181 10^3/uL (130-450); RED BLOOD COUNT 4.02 10^6/uL (4.20-5.40); RED CELL DISTRIBUTION WIDTH 16.6 % (12.0-15.0); WHITE BLOOD COUNT 9.7 x10^3/uL (4.8-10.8)
[2018-01-03 11:07] LABS: RBC MORPHOLOGY (MULTIPLE) 2+ ANISOCYTOSIS (NORMAL)
[2018-01-03] MEDS ORDERED: IOPAMIDOL-300 100 ML VIAL IVP ONE (13:21)
--- NOTE | 2018-01-03 14:01 | PROVIDER PROGRESS NOTE ---
Subjective - Prog Note Date Prog Note Date: 01/03/18 Prog Note Time: 14:10 - Subjective Subjective: She is miserable. While her nausea, vomiting have stopped. Her partial small bowel obstruction has resolved. She is eating a full liquid diet and is hungry enough to want to be advanced to a regular diet, she is miserable. She knows that something is wrong but cannot put her finger on it. She denies chest pain , orthopnea, edema. She denies headache, blurred vision. She has had 2 more episodes where she feels a sense of impending doom with a sudden fast heart rate, diaphoresis and generalized horrible feeling. She started to cry and says "I feel like I am going to ". She acknowledges that she has an anxiety/panic disorder. But it is usually associated with claustrophobia. It is always about people standing in front of her between her and elevator door. Being seated in the middle seat or a window seat in the airplane. But never this. The episodes come on abruptly out of nowhere. Again no chest pain with this. She starts to be short of breath starts to wheeze even more. Current Medications - Current Medications Current Medications: Active Medications Acetaminophen (Tylenol) 650 mg PO Q4HR PRN PRN Reason: Pain 1 to 4 Hydrocodone Bitart/Acetaminophen ([place] 5/325) 1 tab PO Q4HR PRN PRN Reason: Pain 5 to 7 Last Admin: 12/30/17 10:06 Dose: 1 tab Hydrocodone Bitart/Acetaminophen ([place] 10 Mg/325 Mg) 1 tab PO Q4HR PRN PRN Reason: Pain 8 to 10 Albuterol () 2.5 mg INH RTQ4H PRN PRN Reason: Wheezing Benzocaine/Butamben/Tetracaine HCl (Cetacaine [place]) 1 sprays TOP Q6H PRN PRN Reason: PAIN Digoxin (Lanoxin) 125 mcg PO DAILY [facility] Last Admin: 01/03/18 08:01 Dose: 125 mcg Levalbuterol HCl (Xopenex) 1.25 mg INH Q4H PRN PRN Reason: Shortness of Air/Wheezing Levothyroxine Sodium (Synthroid) 50 mcg PO QDAC HUONG Last Admin: 01/03/18 06:00 Dose: 50 mcg Loperamide HCl (Imodium) 2 mg PO QID PRN PRN Reason: Diarrhea Last Admin: 12/31/17 15:58 Dose: 2 mg Lorazepam (Ativan Inj (Vial)) 0.5 mg IVP Q2H PRN PRN Reason: Anxiety Last Admin: 01/03/18 06:14 Dose: 0.5 mg Metoprolol Succinate (Toprol Xl) 100 mg PO DAILY [facility] Last Admin: 01/03/18 08:01 Dose: 100 mg Metoprolol Tartrate (Lopressor Inj) 5 mg IVP Q6H PRN PRN Reason: Heart Rate >110 Morphine Sulfate (Morphine (Carpuject)) 0.5 mg IVP Q2HR PRN PRN Reason: Pain 8 to 10 Ondansetron HCl (Zofran Inj) 4 mg IVP Q6HR PRN PRN Reason: Nausea / Vomiting Pantoprazole Sodium (Protonix) 40 mg IVP BIDAC [facility] Last Admin: 01/03/18 06:00 Dose: 40 mg Polyethylene Glycol (Miralax) 17 gm PO DAILY [facility] Last Admin: 01/03/18 08:01 Dose: Not Given Prochlorperazine Edisylate (Compazine Inj) 10 mg IVP Q6HR PRN PRN Reason: Nausea / Vomiting Last Admin: 12/30/17 10:31 Dose: 10 mg Promethazine HCl (Phenergan Inj) 25 mg IM Q6HR PRN PRN Reason: Nausea / Vomiting Sodium Chloride (Normal Saline Flush 0.9%) 10 ml IVP PRN PRN PRN Reason: NEEDED PER PROVIDER ORDERS Last Admin: 01/02/18 05:57 Dose: 10 ml Sodium Chloride (Normal Saline Flush 0.9%) 10 ml IVP 0100,0900,1700 [facility] Last Admin: 01/03/18 08:01 Dose: Not Given Zolpidem Tartrate (Ambien) 5 mg PO QPM PRN PRN Reason: Insomnia Zolpidem [Ambien] 5 mg PO QPM PRN 02/14/16 Atorvastatin Calcium 60 mg PO QPM 02/21/16 Hydrocodone/Acetaminophen [Hydrocodon-Acetaminophen 5-325] 1 tab PO Q6H PRN Levothyroxine Sodium 50 mcg PO QDAC 02/21/16 Furosemide [Lasix] 40 mg PO DAILY 09/24/16 Ascorbic Acid [Vitamin C] 1,000 mg PO DAILY 11/25/16 Cyanocobalamin (Vitamin B-12) [Vitamin B-12] 2,000 mcg PO DAILY 11/25/16 Digoxin 125 mcg PO DAILY 11/25/16 Multivitamin [Multiple Vitamins] 1 tab PO DAILY 11/25/16 Albuterol Sulfate [Proair Hfa Inhaler] 2 puffs IH Q4HR PRN 12/30/17 Aspirin [Aspirin EC] 81 mg PO DAILY 12/30/17 Calcium Carbonate [Calcium] 600 mg PO DAILY 12/30/17 Cholecalciferol (Vitamin D3) [Vitamin D3] 400 units PO DAILY 12/30/17 Metoprolol Succinate 100 mg PO DAILY 12/30/17 Objective - Vital Signs/Intake & Output Reviewed Vital Signs: Yes Vital Signs: Vital Signs x48h Temp Pulse Resp BP BP Pulse Ox 01/03/18 13:00 36.8 C 95 20 152/89 H 95 01/03/18 08:10 36.9 C 155 H 24 153/96 H 97 Intake & Output: Intake & Output 12/31/17 01/01/18 01/02/18 01/03/18 23:59 23:59 23:59 23:59 Intake Total 1050 4008.667 3518.667 1465 Output Total 150 300 450 Balance 900 3708.667 3068.667 1465 - Objective General Appearance: positive: Alert, Mild distress (At this point time it is emotional and she is crying a little bit), Other (Elderly, thin female sitting upright in her chair, just finished her full liquid breakfast) Eyes Bilateral: positive: PERRL, EOMI ENT: positive: No signs of dehydration Neck: positive: No JVD. negative: Stiff neck, Carotid bruit Respiratory: positive: Chest non-tender, Wheezes, Other (Increased respiratory rate. She has a fast pressured speech and her anxiety as she talks to me and she is making herself short of breath. She acknowledges it, takes a deep breath , and then just tries to slow herself down). negative: Rales, Rhonchi Cardiovascular: positive: Irregularly irregular, Systolic murmur. negative: Gallop/S4, Friction rub Abdomen: positive: Non-tender, No organomegaly, Nml bowel sounds, No distention Skin: positive: Warm, Dry Extremities: positive: No pedal edema Neurologic/Psychiatric: positive: Oriented x3, CN's nml (2-12), Motor nml - Lab Results Fish Bones: 01/03/18 06:26 01/03/18 06:26 Other Labs: Lab Results x24hrs 01/03/18 01/03/18 01/02/18 Range/Units 06:26 06:26 16:55 WBC 9.7 (4.8-10.8) x10^3/uL RBC 4.02 L (4.20-5.40) 10^6/uL Hgb 12.7 (12.0-16.0) g/dL Hct 38.0 (37.0-47.0) % MCV 94.7 (81.0-99.0) fL MCH 31.7 H (27.0-31.0) pg MCHC 33.5 (32.0-36.0) g/dL RDW 16.6 H (12.0-15.0) % Plt Count 181 (130-450) 10^3/uL MPV 9.2 (7.9-10.8) fL Neut # (Auto) 7.2 H (1.5-6.6) 10^3/uL Lymph # (Auto) 0.8 L (1.5-3.5) 10^3/uL Wilcox # (Auto) 1.5 H (0.0-1.0) 10^3/uL Eos # (Auto) 0.2 (0.0-0.7) 10^3/uL Baso # (Auto) 0.0 (0.0-0.1) 10^3/uL Absolute Nucleated RBC 0.00 x10^3/uL Nucleated RBC % 0.0 /100WBC Manual Slide Review Indicated RBC Morph Micro Appear 2+ ANISOCYTOSIS (NORMAL) Sodium 139 (135-145) mmol/L Potassium 5.1 H (3.5-5.0) mmol/L Chloride 114 H (101-111) mmol/L Carbon Dioxide 19 L (21-32) mmol/L Anion Gap 6.0 (6-13) BUN 18 (6-20) mg/dL Creatinine 1.0 (0.4-1.0) mg/dL Estimated GFR (MDRD) 53 L (>89) Glucose 108 H (70-100) mg/dL Calcium 8.5 (8.5-10.3) mg/dL Phosphorus 2.2 L (2.5-4.6) mg/dL Magnesium 1.6 L (1.7-2.8) mg/dL Total Bilirubin 1.0 (0.2-1.0) mg/dL AST 15 (10-42) IU/L ALT 15 (10-60) IU/L Alkaline Phosphatase 62 (42-121) IU/L Troponin I < 0.04 (<0.49) ng/mL Total Protein 5.9 L (6.7-8.2) g/dL Albumin 2.9 L (3.2-5.5) g/dL Globulin 3.0 (2.1-4.2) g/dL Albumin/Globulin Ratio 1.0 (1.0-2.2) ABX Reporting Has patient been on IV antibiotics over the past 48 hours?: No Assessment/Plan - Problem List (1) Sense of impending doom Impression: It was sudden in onset in the morning of 01/02. She had been having a good morning. Sitting up in bed and then in the chair in the room. Nothing new was going on. She was pleased that her stomach was getting better and better. Sudden onset of impending doom. Diffuse sweats. No chest pain. Heart rate shot up to the 160s. Even though her vitals were fine and her oxygen was fine she felt like "I was going to ". And that all went away. She took her metoprolol and 45 minutes later she was fine. She denies chest pain. She may been short of breath she does not know. No jaw pain or shoulder pain. No nausea.She continues to have those episodes and had one yesterday evening and 1 this morning. Miserable. She even wonders if she is having panic attacks but she has never done panic this way before. She knows that she has anxiety, claustrophobia, but never nothing like this. EKG was unchanged January 02. Initial troponin is 0.27 and Repeat troponin less than 0.04. We are avoiding anticoagulation or platelet inhibitors because of her small bowel obstruction and gastritis. I will give her Lovenox 1, already on a beta-kate, will make sure she gets a statin. The elevated troponin may be from A. fib with RVR. Because she continues to have episodes, will repeat echocardiogram looking for RV strain and will also get CT pulmonary angiogram looking for pulmonary embolus. (2) Partial small bowel obstruction Impression: Conclusion/Plan: Resolved. The patient presents with intractable nausea vomiting for 3 days. On admission it was not clear as to what the cause of her intractable nausea vomiting was from. She could have a viral gastroenteritis as she does have some leukopenia with a bandemia but does not have any fevers or chills. The patient could also have a bowel obstruction as she has been constipated for the last 2 days. The patient's guaiac of the emesis was positive and this makes it suspicious for possibility of an upper GI bleed although she has not been having any melanotic stools and her hemoglobin is stable. It is also possible that the patient may have gastritis with some mild bleeding or that she could have some Pratima- Ohara type tear due to her continuous vomiting and retching for the last 3 days. The patient was given Decadron before this started making possible GI bleed and gastritis more likely. The patient does use aspirin but no NSAIDs or anticoagulants. She was placed in observation for further treatment and evaluation.We then did a KUB and noted dilated small bowel loops. A CT of the abdomen confirms a partial small bowel obstruction. Proximal bowel was quite dilated all the way up into her stomach with lots of fluid and undigested food. It also did not help that the patient was taking her finger down her throat to make herself have emesis. We ordered an NG tube 12/30. However the patient stopped vomiting and did not want the NG tube and she does not have one in now. She has had 1 emesis since 12/30. She was having frequent loose liquid bowel that was incredibly foul-smelling. C. difficile negative and culture negative for salmonella, shigella, e coli, and campylobacter. Giardia check also ordered and pending. She does not have a fever nor does she have an elevated white cell count. She is still passing flatus. Diarrhea slowed down with the treatment of Imodium. KUB on 01/01 with resolved dilation of small bowel but her stomach is very very distended. In spite of this she wants to eat more than the clear liquids and still declines NG placment. 01/02 acute abd series shows even better resolution of dilated bowel and stomach. I did not repeat films today. But she has no abdominal pain, no distention, and she feels fine from a GI perspective. Plan: IV fluids To stop today IV antiemetics Continue IV pain medications Continue IV Protonix 40 mg twice daily Carafate Stopped. GI cocktail every 6 hours Stopped. We Monitored H&H every 6 to see if patient's hemoglobin was falling and it wasn 't Was NPO the first day, then clear liquids, then full liquid.Regular diet today. Hold aspirin and any other blood thinners Changed from observation to inpatient status 12/31 There is still no fever or white cell count. I had initially thought that I would not order a general surgery consult. However she worsens and one was ordered and she was seen by surgery 01/01. She stated that she was offered a colonoscopy a few years ago. She told Dr. Taya Tamez that she would never do anything about it anyway so why do the colonoscopy. She tells me that she may have changed her mind depending on how this bowel obstruction resolves. She is doing better. Qualifiers: Vomiting type: unspecified Qualified Code(s): R11.2 - Nausea with vomiting , unspecified (3) Atrial fibrillation with RVR Conclusion/Plan: Patient presented to the emergency department with intractable nausea vomiting, dehydration and acute kidney injury. The patient appeared to have dehydration which was likely contributing to her being tachycardic. The patient does have history of atrial fibrillation and is in rapid atrial fibrillation. The patient 's heart rate is ranging between 120-140 in the emergency department. This is likely also due to the fact that she has not been able to keep down her rate control medications. The patient has a chads 2 score of 2 but is not on any anticoagulation given history of GI bleeding and large hematoma in her leg.Since hydration and treatment of nausea, her heart rate is gone down to the 80s and 90s and has remained there for 3nd day now Until the morning of January 02. That morning she sped up to 160 with her "panic attack". She was then back down into the 80s and 90s. 2 more episodes where her heart speeds up to the 160s. She feels miserable. She feels scared. Plan: Continue patient's oral metoprolol, digoxin and diltiazem if patient is not able to tolerate and heart rate continues to be elevated we will give her IV metoprolol 5 mg every 6 hours Telemetry monitoring IV fluids To stop today See above for CT pulmonary angiogram and repeat echo (4) BERTRAND (acute kidney injury) Conclusion/Plan: Resolved. Patient did have acute kidney injury with a creatinine of 1.9 which was elevated from baseline of 1.1 just 3 days earlier. Patient appeared to have prerenal azotemia as her BUN was 52. This appears likely secondary to her intractable nausea vomiting and dehydration.Yesterday her creat was 0.9 and BUN is down to 26. Plan: IV fluids Until today, will stop Continue to Monitor creatinine Avoid nephrotoxic agents Hold Lasix for now. When she gets home can resume in a week. (5) Hypokalemia Conclusion/Plan: Resolved. The patient's potassium on presentation was low at 3.3. It appears the patient has hypokalemia secondary to intractable vomiting and dehydration. The patient was given supplemental potassium and will continue to monitor the patient's potassium daily. We will hold the patient's Lasix. Today she is 5.1 (6) Hyperbilirubinemia Conclusion/Plan: The patient did have hyperbilirubinemia with a bilirubin of 1.7 on presentation. The patient appeared to have chronically elevated bilirubin as in the past the patient's bilirubin has ranged between 0.8-1.9. It is unclear as to why the patient's bilirubin had been elevated in the past but this does not appear to be related to her current condition. If the patient's bilirubin had continued to rise we will have considered getting an abdominal ultrasound to look for possible stone. For now we will continue to monitor the patient's bilirubin daily and she went up to 2 to then go down to 1.3 for last [address] of the abdomen does not show gallstones (7) Asthma Conclusion/Plan: The patient has a history of asthma and was a previous smoker. The patient did not appear to be in any asthma exacerbation. But today she is having wheezing or respiratory distress And she feels more short of breath.The patient will be placed on Albuterol neb as needed while she is hospitalized. CT of the abdomen has lower cuts through the lung. It shows right midlung reticular nodular infiltrate. She may have been aspirating. But without fever or hypoxia or elevated white cell count will just continue to observe and not treat. On exam she continues to have prolonged and exhalation phase. But no dyspnea on exertion and no dyspnea while talking to me. We will review CT angiogram. Continue nebulizers. Qualifiers: Asthma severity: mild Asthma persistence: intermittent Asthma complication type: unspecified Qualified Code(s): J45.20 - Mild intermittent asthma, uncomplicated (8) GERD (gastroesophageal reflux disease) Conclusion/Plan: Patient has a history of GERD and states that she has having symptoms of GERD currently with her intractable nausea vomiting and retching. The patient was placed on IV Protonix, Carafate and a GI cocktail when she was initially hospitalized. Continued PPI but carafate and GI cocktail stopped when we realized most of her symptoms were from the partial SBO. Patient was n.p.o. then clears and today we will advance to full liquids. She says that she sticks her finger down her throat only to release gas and help her belch. That is what she was trying to do 12/31. I asked her to please not do that while she is here. I understand that she does that to release the air gas but with her bowel obstruction it could be dangerous. Qualifiers: Esophagitis presence: with esophagitis Qualified Code(s): K21.0 - Gastro- esophageal reflux disease with esophagitis (9) Hyperlipidemia Conclusion/Plan: Patient has a history of hyperlipidemia and is on statin at home. The patient will be continued on her home dose of statin while she is hospitalized. Qualifiers: Hyperlipidemia type: unspecified Qualified Code(s): E78.5 - Hyperlipidemia , unspecified (10) Hypothyroidism Conclusion/Plan: Patient is a history of hypothyroidism and is on Synthroid at home. Currently she appears to be stable. We will continue her home dose of Synthroid and check a TSH while she is hospitalized. Qualifiers: Hypothyroidism type: unspecified Qualified Code(s): E03.9 - Hypothyroidism , unspecified (11) Osteoarthritis Conclusion/Plan: Patient has osteoarthritis with chronic back pain. The patient does take Vicodin at home for her back pain. The patient states that her pain is becoming uncontrolled in the emergency department. If the patient is unable to tolerate p.o. pain medication the patient will be placed on small dose of IV morphine for pain control. We will continue the patient on Vicodin if she can tolerate and her normal home medication. We will avoid all NSAIDs, aspirin and steroids. But today, she really does not want IV pain meds nor does she want Vicodin. She wanted ibuprofen. Gave her 1 dose of ibuprofen. Watch her BUN and creatinine Qualifiers: Osteoarthritis location: multiple joints Osteoarthritis type: unspecified Qualified Code(s): M15.9 - Polyosteoarthritis, unspecified
--- NOTE | 2018-01-03 15:20 | CT Report ---
Reason: severe shortness of breath Procedure Date: 01/03/2018 Accession Number: [id number] / [id number] Procedure: CT - Chest Angio (PE) CPT Code: FULL RESULT: EXAM: CT ANGIOGRAM CHEST. EXAM DATE: 01/03/2018 01:18 PM. CLINICAL HISTORY: Severe shortness of breath. COMPARISON: 01/02/2018. 03/20/2014. TECHNIQUE: Routine helical imaging was performed through the chest in the pulmonary arterial phase. IV Contrast: 70 cc of Isovue-300. Reconstructions: Coronal 3-D MIP reconstructions.Sagittal and coronal. In accordance with CT protocol optimization, one or more of the following dose reduction techniques were utilized for this exam: automated exposure control, adjustment of mA and/or KV based on patient size, or use of iterative reconstructive technique. FINDINGS: Pulmonary Arteries: Diagnostic quality: Adequate through the segmental arteries. No evidence of acute or chronic pulmonary embolism. There is limited opacification of the right lower lobe pulmonary artery vessels limiting detail. Mid main pulmonary artery measures 3.3 cm and is prominent. Lungs/Pleura: Emphysematous changes. No endobronchial obstruction. Dense right lower lobe consolidation and moderate right pleural effusion. No vascular congestion or pneumothorax. Small foci of groundglass opacities are seen in the lingula and left upper lobe. Mediastinum: Heart is enlarged. Dilatation of the right atrium and right ventricle. Coronary artery calcified plaque. No mediastinal hematoma. Left atrium is enlarged. No enlarged mediastinal or hilar lymph nodes. Thyroid gland is not well seen. Thoracic Aorta: Limited luminal enhancement of the thoracic aorta. Thoracic aortic calcified plaque. No aneurysm. Maximal size of the mid ascending aorta measures 3.5 cm. Upper Abdomen: Included portions of the liver, spleen, adrenals and pancreas are unremarkable. Low-attenuation lesion is seen incompletely assessed on this study rising from the posterior left kidney measuring 3.4 cm included portions of the right kidney are unremarkable. There is perinephric stranding. Stomach is distended. Included portions of the colon are unremarkable. Other: Degenerative changes of the thoracic spine. Thoracic kyphosis. Thoracic scoliosis. No acute osseous abnormalities are identified. Healed left posterior rib fractures. Subcutaneous edema. IMPRESSION: 1. No evidence of pulmonary embolus noting that there is limited opacification of the lower lobe peripheral pulmonary vessels due in part to respiratory motion. 2. Moderate right pleural effusion and dense right lower lobe consolidation. 3. Emphysematous changes. No vascular congestion. 4. Cardiomegaly. Coronary artery and aortic atherosclerosis. [facility]
[2018-01-03] MEDS: HYDROcod/ACETAM 5/325 MG TABLET PO PRN (17:07)
[2018-01-03] MEDS: CLINDAMYCIN INJ 300 MG in SODIUM CHLORIDE 0.9% 50 ML IV SCH (18:54)
[2018-01-03] MEDS ORDERED: SODIUM CHLORIDE 0.9% 1,000 ML IV PRN (19:01)
[2018-01-04] MEDS: CLINDAMYCIN INJ 300 MG in SODIUM CHLORIDE 0.9% 50 ML IV SCH ×4 (00:17→18:29)
[2018-01-04] MEDS: SODIUM CHLORIDE FLUSH 0.9% 10 ML SYRINGE IVP SCH ×3 (02:45→15:53)
[2018-01-04 06:03] LABS: BASOPHILS % (AUTO) 0.3 %; EOSINOPHILS # (AUTO) 0.4 10^3/uL (0.0-0.7); EOSINOPHILS % (AUTO) 3.5 %; HGB - HEMOGLOBIN 12.4 g/dL (12.0-16.0); LYMPHOCYTES # (AUTO) 0.9 10^3/uL (1.5-3.5); LYMPHOCYTES % (AUTO) 8.4 %; MEAN CORPUSCULAR HEMOGLOBIN 32.1 pg (27.0-31.0); MEAN CORPUSCULAR HGB CONC 33.2 g/dL (32.0-36.0); MEAN CORPUSCULAR VOLUME 96.7 fL (81.0-99.0); MEAN PLATELET VOLUME 8.2 fL (7.9-10.8); MONOCYTES # (AUTO) 1.5 10^3/uL (0.0-1.0); MONOCYTES % (AUTO) 13.9 %; NEUTROPHILS # (AUTO) 7.9 10^3/uL (1.5-6.6); NEUTROPHILS % (AUTO) 73.9 %; PLT - PLATELET COUNT 166 10^3/uL (130-450); RED BLOOD COUNT 3.87 10^6/uL (4.20-5.40); RED CELL DISTRIBUTION WIDTH 16.7 % (12.0-15.0); WHITE BLOOD COUNT 10.7 x10^3/uL (4.8-10.8)
[2018-01-04 06:15] LABS: ALBUMIN 2.7 g/dL (3.2-5.5); ALBUMIN/GLOBULIN RATIO 0.9 (1.0-2.2); BILIRUBIN,TOTAL 0.5 mg/dL (0.2-1.0); CALCIUM 8.6 mg/dL (8.5-10.3); CREATININE 0.8 mg/dL (0.4-1.0); TOTAL PROTEIN 5.6 g/dL (6.7-8.2)
[2018-01-04] MEDS: LEVOTHYROXINE 25 MCG TABLET PO SCH (06:16)
[2018-01-04] MEDS: PANTOPRAZOLE 40 MG VIAL IVP SCH ×2 (06:16→15:52)
[2018-01-04] MEDS: SODIUM CHLORIDE FLUSH 0.9% 10 ML SYRINGE IVP PRN (06:18)
[2018-01-04] MEDS: DIGOXIN 125 MCG TABLET PO SCH (08:16)
[2018-01-04] MEDS: POLYETHYLENE GLYCOL 3350 17 GM PACKET PO SCH (08:17)
[2018-01-04] MEDS: METOPROLOL SUCCINATE 50 MG TABLET PO SCH (08:17)
[2018-01-04] MEDS: HYDROcod/ACETAM 5/325 MG TABLET PO PRN (12:10)
--- NOTE | 2018-01-04 14:38 | PROVIDER PROGRESS NOTE ---
Subjective - Prog Note Date Prog Note Date: 01/04/18 Prog Note Time: 14:35 - Subjective Pt reports feeling: No change Subjective: Her main complaint is feeling so weak. She can barely get out of bed to walk to the bathroom. It frightens her because she does not know how she is going to do at home. Her son does live with her but he will not be able to take care of her. He is easily overwhelmed, and has his own job that he walks to .She denies chest pain. Get short of breath and starts panting if she talks too long or tries to get to the bathroom. No edema. No abdominal pain. Still has a lot of belching but no longer has had intractable nausea, vomiting, or abdominal distention. Diarrhea has resolved and she has plenty of flatus.Not tolerating a regular diet this morning. Not much of an appetite but she is eating and keeping it down Yesterday I did a CT pulmonary angiogram to make sure she was not having a PE as a cause of her sudden sense of doom. She does not have a pulmonary embolus. Echocardiogram done January 03 shows a have a sigmoid shaped septum with focal hypertrophy of the basal septum. Overall left ventricular systolic function is 50-55%. Right ventricle is normal. Severe increase in both left and right atrium. I was looking for right ventricular strain in case she had a PE and she does not. She has moderate to severe mitral regurgitation. The severity of mitral regurgitation is increased from February 2014. She has mildly scratch that she has moderately abnormal right heart pressures. Right ventricular systolic pressure at rest is 64. As compared to the prior echo the pulmonary pressures of increased from the 32 mmHg reported then. With the CT pulmonary angiogram did reveal was a right mid lobe infiltrate. This is a woman who sticks a finger down her throat to make herself vomit. Has had intractable nausea and vomiting. She most likely aspirated and has aspiration consolidation. Current Medications - Current Medications Current Medications: Active Medications Acetaminophen (Tylenol) 650 mg PO Q4HR PRN PRN Reason: Pain 1 to 4 Hydrocodone Bitart/Acetaminophen ([place] 5/325) 1 tab PO Q4HR PRN PRN Reason: Pain 5 to 7 Last Admin: 01/04/18 12:10 Dose: 1 tab Hydrocodone Bitart/Acetaminophen ([place] 10 Mg/325 Mg) 1 tab PO Q4HR PRN PRN Reason: Pain 8 to 10 Albuterol () 2.5 mg INH RTQ4H PRN PRN Reason: Wheezing Last Admin: 01/04/18 04:15 Dose: 2.5 mg Benzocaine/Butamben/Tetracaine HCl (Cetacaine Datil) 1 sprays TOP Q6H PRN PRN Reason: PAIN Digoxin (Lanoxin) 125 mcg PO DAILY [facility] Last Admin: 01/04/18 08:16 Dose: 125 mcg Clindamycin Phosphate 300 mg/ (Sodium Chloride) 52 mls @ 100 mls/hr IV Q6HR [facility] Last Infusion: 01/04/18 13:04 Dose: Infused Sodium Chloride (Normal Saline 0.9%) 1,000 mls @ 0 mls/hr IV Q24H PRN; TKO PRN Reason: TKO RATE Last Admin: 01/03/18 19:02 Dose: 10 mls/hr Levalbuterol HCl (Xopenex) 1.25 mg INH Q4H PRN PRN Reason: Shortness of Air/Wheezing Levothyroxine Sodium (Synthroid) 50 mcg PO QDAC [facility] Last Admin: 01/04/18 06:16 Dose: 50 mcg Loperamide HCl (Imodium) 2 mg PO QID PRN PRN Reason: Diarrhea Last Admin: 12/31/17 15:58 Dose: 2 mg Lorazepam (Ativan Inj (Vial)) 0.5 mg IVP Q2H PRN PRN Reason: Anxiety Last Admin: 01/03/18 19:14 Dose: 0.5 mg Metoprolol Succinate (Toprol Xl) 100 mg PO DAILY [facility] Last Admin: 01/04/18 08:17 Dose: 100 mg Metoprolol Tartrate (Lopressor Inj) 5 mg IVP Q6H PRN PRN Reason: Heart Rate >110 Morphine Sulfate (Morphine (Carpuject)) 0.5 mg IVP Q2HR PRN PRN Reason: Pain 8 to 10 Ondansetron HCl (Zofran Inj) 4 mg IVP Q6HR PRN PRN Reason: Nausea / Vomiting Pantoprazole Sodium (Protonix) 40 mg IVP BIDAC [facility] Last Admin: 01/04/18 06:16 Dose: 40 mg Polyethylene Glycol (Miralax) 17 gm PO DAILY [facility] Last Admin: 01/04/18 08:17 Dose: Not Given Prochlorperazine Edisylate (Compazine Inj) 10 mg IVP Q6HR PRN PRN Reason: Nausea / Vomiting Last Admin: 12/30/17 10:31 Dose: 10 mg Promethazine HCl (Phenergan Inj) 25 mg IM Q6HR PRN PRN Reason: Nausea / Vomiting Sodium Chloride (Normal Saline Flush 0.9%) 10 ml IVP PRN PRN PRN Reason: NEEDED PER PROVIDER ORDERS Last Admin: 01/04/18 06:18 Dose: 10 ml Sodium Chloride (Normal Saline Flush 0.9%) 10 ml IVP 0100,0900,1700 HUONG Last Admin: 01/04/18 08:17 Dose: Not Given Zolpidem Tartrate (Ambien) 5 mg PO QPM PRN PRN Reason: Insomnia Zolpidem [Ambien] 5 mg PO QPM PRN 02/14/16 Atorvastatin Calcium 60 mg PO QPM 02/21/16 Hydrocodone/Acetaminophen [Hydrocodon-Acetaminophen 5-325] 1 tab PO Q6H PRN Levothyroxine Sodium 50 mcg PO QDAC 02/21/16 Furosemide [Lasix] 40 mg PO DAILY 09/24/16 Ascorbic Acid [Vitamin C] 1,000 mg PO DAILY 11/25/16 Cyanocobalamin (Vitamin B-12) [Vitamin B-12] 2,000 mcg PO DAILY 11/25/16 Digoxin 125 mcg PO DAILY 11/25/16 Multivitamin [Multiple Vitamins] 1 tab PO DAILY 11/25/16 Albuterol Sulfate [Proair Hfa Inhaler] 2 puffs IH Q4HR PRN 12/30/17 Aspirin [Aspirin EC] 81 mg PO DAILY 12/30/17 Calcium Carbonate [Calcium] 600 mg PO DAILY 12/30/17 Cholecalciferol (Vitamin D3) [Vitamin D3] 400 units PO DAILY 12/30/17 Metoprolol Succinate 100 mg PO DAILY 12/30/17 Objective - Vital Signs/Intake & Output Reviewed Vital Signs: Yes Vital Signs: Vital Signs x48h Temp Pulse Resp BP BP BP Pulse Ox 01/04/18 12:51 36.3 C L 97 18 133/76 H 99 01/04/18 11:35 150/95 H 01/04/18 08:11 36.3 C L 97 20 146/85 H 97 Intake & Output: Intake & Output 01/01/18 01/02/18 01/03/18 01/04/18 23:59 23:59 23:59 23:59 Intake Total 4008.667 3518.667 3014 716 Output Total 300 450 200 Balance 3708.667 3068.667 3014 516 - Objective General Appearance: positive: Alert, Other (Thin, tiny elderly female sitting upright in her chair, initially comfortable. She gets more excited, starts talking to be more, stress to have increased respiratory rate and wheezing.) Eyes Bilateral: positive: PERRL ENT: positive: Pharynx nml Neck: positive: No JVD. negative: Stiff neck, Carotid bruit Respiratory: positive: Chest non-tender, Wheezes, Rales. negative: Rhonchi Cardiovascular: positive: Irregularly irregular, Tachycardia, Systolic murmur. negative: Gallop/S4, Friction rub Abdomen: positive: Non-tender, No organomegaly, Nml bowel sounds, No distention Skin: positive: Warm, Dry, Pallor Extremities: positive: Full ROM, No pedal edema Neurologic/Psychiatric: positive: Oriented x3, CN's nml (2-12), Motor nml - Lab Results Fish Bones: 01/04/18 05:51 01/04/18 05:51 Other Labs: Lab Results x24hrs 01/04/18 01/04/18 Range/Units 05:51 05:51 WBC 10.7 (4.8-10.8) x10^3/uL RBC 3.87 L (4.20-5.40) 10^6/uL Hgb 12.4 (12.0-16.0) g/dL Hct 37.4 (37.0-47.0) % MCV 96.7 (81.0-99.0) fL MCH 32.1 H (27.0-31.0) pg MCHC 33.2 (32.0-36.0) g/dL RDW 16.7 H (12.0-15.0) % Plt Count 166 (130-450) 10^3/uL MPV 8.2 (7.9-10.8) fL Neut # (Auto) 7.9 H (1.5-6.6) 10^3/uL Lymph # (Auto) 0.9 L (1.5-3.5) 10^3/uL Rich # (Auto) 1.5 H (0.0-1.0) 10^3/uL Eos # (Auto) 0.4 (0.0-0.7) 10^3/uL Baso # (Auto) 0.0 (0.0-0.1) 10^3/uL Absolute Nucleated RBC 0.00 x10^3/uL Nucleated RBC % 0.0 /100WBC Sodium 140 (135-145) mmol/L Potassium 4.6 (3.5-5.0) mmol/L Chloride 116 H (101-111) mmol/L Carbon Dioxide 17 L (21-32) mmol/L Anion Gap 7.0 (6-13) BUN 14 (6-20) mg/dL Creatinine 0.8 (0.4-1.0) mg/dL Estimated GFR (MDRD) 69 L (>89) Glucose 103 H (70-100) mg/dL Calcium 8.6 (8.5-10.3) mg/dL Total Bilirubin 0.5 (0.2-1.0) mg/dL AST 15 (10-42) IU/L ALT 14 (10-60) IU/L Alkaline Phosphatase 60 (42-121) IU/L Total Protein 5.6 L (6.7-8.2) g/dL Albumin 2.7 L (3.2-5.5) g/dL Globulin 2.9 (2.1-4.2) g/dL Albumin/Globulin Ratio 0.9 L (1.0-2.2) ABX Reporting Has patient been on IV antibiotics over the past 48 hours?: Yes Assessment/Plan - Problem List (1) Right middle lobe pulmonary infiltrate Impression: Because of intractable nausea and vomiting, I suspect aspiration. She has been placed on IV clindamycin. Today is day 2. (2) Acute right-sided heart failure Impression: This unfortunate elderly female has been aggressively fluid resuscitated for small bowel obstruction, and quite a bit of emesis. She has received fluids. On the fifth she was a 1000CC positive, the 10/12 she was 1986 positive, the seventh 3708 positive, the eighth 3068 positive and the ninth she was 3014 positive so far. They are not recording output. She does get up to go the bathroom and urinate and not recorded. So these fluid status may be more exaggerated than she really is. Nevertheless will give IV Lasix and check BMP tomorrow (3) Sense of impending doom Impression: It was sudden in onset in the morning of 01/02. She had been having a good morning. Sitting up in bed and then in the chair in the room. Nothing new was going on. She was pleased that her stomach was getting better and better. Sudden onset of impending doom. Diffuse sweats. No chest pain. Heart rate shot up to the 160s. Even though her vitals were fine and her oxygen was fine she felt like "I was going to ". And that all went away. She took her metoprolol and 45 minutes later she was fine. She denies chest pain. She may been short of breath she does not know. No jaw pain or shoulder pain. No nausea.She continues to have those episodes and had one yesterday evening and 1 this morning. Miserable. She even wonders if she is having panic attacks but she has never done panic this way before. She knows that she has anxiety, claustrophobia, but never nothing like this. EKG was unchanged January 02. Initial troponin is 0.27 and Repeat troponin less than 0.04. We are avoiding anticoagulation or platelet inhibitors because of her small bowel obstruction and gastritis. I will give her Lovenox 1, already on a beta-kate, will make sure she gets a statin. The elevated troponin may be from A. fib with RVR. Because she continues to have episodes, will repeat echocardiogram looking for RV strain and will also get CT pulmonary angiogram looking for pulmonary embolus. Once I made diagnosis of heart failure and aspiration, can stop the lovenox. (4) Partial small bowel obstruction Impression: Conclusion/Plan: Resolved. The patient presents with intractable nausea vomiting for 3 days. On admission it was not clear as to what the cause of her intractable nausea vomiting was from. She could have a viral gastroenteritis as she does have some leukopenia with a bandemia but does not have any fevers or chills. The patient could also have a bowel obstruction as she has been constipated for the last 2 days. The patient's guaiac of the emesis was positive and this makes it suspicious for possibility of an upper GI bleed although she has not been having any melanotic stools and her hemoglobin is stable. It is also possible that the patient may have gastritis with some mild bleeding or that she could have some Pratima- Ohara type tear due to her continuous vomiting and retching for the last 3 days. The patient was given Decadron before this started making possible GI bleed and gastritis more likely. The patient does use aspirin but no NSAIDs or anticoagulants. She was placed in observation for further treatment and evaluation.We then did a KUB and noted dilated small bowel loops. A CT of the abdomen confirms a partial small bowel obstruction. Proximal bowel was quite dilated all the way up into her stomach with lots of fluid and undigested food. It also did not help that the patient was taking her finger down her throat to make herself have emesis. We ordered an NG tube 12/30. However the patient stopped vomiting and did not want the NG tube and she does not have one in now. She has had 1 emesis since 12/30. She was having frequent loose liquid bowel that was incredibly foul-smelling. C. difficile negative and culture negative for salmonella, shigella, e coli, and campylobacter. Giardia check also ordered and pending. She does not have a fever nor does she have an elevated white cell count. She is still passing flatus. Diarrhea slowed down with the treatment of Imodium. KUB on 01/01 with resolved dilation of small bowel but her stomach is very very distended. In spite of this she wants to eat more than the clear liquids and still declines NG placment. 01/02 acute abd series shows even better resolution of dilated bowel and stomach. I did not repeat films after that. But she has no abdominal pain, no distention, and she feels fine from a GI perspective. Plan: IV fluids stopped IV antiemetics Continue IV pain medications Continue IV Protonix 40 mg twice daily Carafate Stopped. GI cocktail every 6 hours Stopped. We Monitored H&H every 6 to see if patient's hemoglobin was falling and it wasn 't Was NPO the first day, then clear liquids, then full liquid. Regular diet yesterday evening and today. Being tolerated. Hold aspirin and any other blood thinners Changed from observation to inpatient status 12/31 There is still no fever or white cell count. I had initially thought that I would not order a general surgery consult. However she worsens and one was ordered and she was seen by surgery 01/01. She stated that she was offered a colonoscopy a few years ago. She told Dr. Taya Tamez that she would never do anything about it anyway so why do the colonoscopy. She tells me that she may have changed her mind depending on how this bowel obstruction resolves. She is doing better. Qualifiers: Vomiting type: unspecified Qualified Code(s): R11.2 - Nausea with vomiting , unspecified (5) Atrial fibrillation with RVR Conclusion/Plan: Chronic. Patient presented to the emergency department with intractable nausea vomiting, dehydration and acute kidney injury. The patient appeared to have dehydration which was likely contributing to her being tachycardic. The patient does have history of atrial fibrillation and is in rapid atrial fibrillation. The patient 's heart rate is ranging between 120-140 in the emergency department. This is likely also due to the fact that she has not been able to keep down her rate control medications. The patient has a chads 2 score of 2 but is not on any anticoagulation given history of GI bleeding and large hematoma in her leg.Since hydration and treatment of nausea, her heart rate is gone down to the 80s and 90s and has remained there for 3nd day now Until the morning of January 02. That morning she sped up to 160 with her "panic attack". She was then back down into the 80s and 90s. 2 more episodes where her heart speeds up to the 160s. She feels miserable. She feels scared. Plan: Continue patient's oral metoprolol, digoxin and diltiazem if patient is not able to tolerate and heart rate continues to be elevated we will give her IV metoprolol 5 mg every 6 hours Telemetry monitoring IV fluids stopped yesterday Echo confirms severe LAE, nml LVEF and right sided heart failure. (6) BERTRAND (acute kidney injury) Conclusion/Plan: Resolved. Patient did have acute kidney injury with a creatinine of 1.9 which was elevated from baseline of 1.1 just 3 days earlier. Patient appeared to have prerenal azotemia as her BUN was 52. This appears likely secondary to her intractable nausea vomiting and dehydration.Yesterday her creat was 0.9 and BUN is down to 26. Plan: IV fluids stopped 9/9 Continue to Monitor creatinine Avoid nephrotoxic agents Hold Lasix for now. When she gets home can resume in a week. (7) Hypokalemia Conclusion/Plan: Resolved. The patient's potassium on presentation was low at 3.3. It appears the patient has hypokalemia secondary to intractable vomiting and dehydration. The patient was given supplemental potassium and will continue to monitor the patient's potassium daily. We will hold the patient's Lasix. Today she is 5.1 (8) Hyperbilirubinemia Conclusion/Plan: Resolved. The patient did have hyperbilirubinemia with a bilirubin of 1.7 on presentation. The patient appeared to have chronically elevated bilirubin as in the past the patient's bilirubin has ranged between 0.8-1.9. It is unclear as to why the patient's bilirubin had been elevated in the past but this does not appear to be related to her current condition. If the patient's bilirubin had continued to rise we will have considered getting an abdominal ultrasound to look for possible stone. For now we will continue to monitor the patient's bilirubin daily and she went up to 2 to then go down to 1.3 for last [address] of the abdomen does not show gallstones (9) Asthma Conclusion/Plan: The patient has a history of asthma and was a previous smoker. The patient did not appear to be in any asthma exacerbation. But today she is having wheezing or respiratory distress And she feels more short of breath.The patient will be placed on Albuterol neb as needed while she is hospitalized. CT of the abdomen has lower cuts through the lung. It shows right midlung reticular nodular infiltrate. She may have been aspirating. But without fever or hypoxia or elevated white cell count will just continue to observe and not treat. On exam she continues to have prolonged and exhalation phase. But no dyspnea on exertion and no dyspnea while talking to me. No PE on CTA. Continue nebulizers. Qualifiers: Asthma severity: mild Asthma persistence: intermittent Asthma complication type: unspecified Qualified Code(s): J45.20 - Mild intermittent asthma, uncomplicated (10) GERD (gastroesophageal reflux disease) Conclusion/Plan: Patient has a history of GERD and states that she has having symptoms of GERD currently with her intractable nausea vomiting and retching. The patient was placed on IV Protonix, Carafate and a GI cocktail when she was initially hospitalized. Continued PPI but carafate and GI cocktail stopped when we realized most of her symptoms were from the partial SBO. Patient was n.p.o. then clears and today we will advance to full liquids. She says that she sticks her finger down her throat only to release gas and help her belch. That is what she was trying to do 12/31. I asked her to please not do that while she is here. I understand that she does that to release the air gas but with her bowel obstruction it could be dangerous. Qualifiers: Esophagitis presence: with esophagitis Qualified Code(s): K21.0 - Gastro- esophageal reflux disease with esophagitis (11) Hyperlipidemia Conclusion/Plan: Patient has a history of hyperlipidemia and is on statin at home. The patient will be continued on her home dose of statin while she is hospitalized. Qualifiers: Hyperlipidemia type: unspecified Qualified Code(s): E78.5 - Hyperlipidemia , unspecified (12) Hypothyroidism Conclusion/Plan: Patient is a history of hypothyroidism and is on Synthroid at home. Currently she appears to be stable. We will continue her home dose of Synthroid and check a TSH while she is hospitalized. Qualifiers: Hypothyroidism type: unspecified Qualified Code(s): E03.9 - Hypothyroidism , unspecified (13) Osteoarthritis Conclusion/Plan: Patient has osteoarthritis with chronic back pain. The patient does take Vicodin at home for her back pain. The patient states that her pain is becoming uncontrolled in the emergency department. If the patient is unable to tolerate p.o. pain medication the patient will be placed on small dose of IV morphine for pain control. We will continue the patient on Vicodin if she can tolerate and her normal home medication. We will avoid all NSAIDs, aspirin and steroids. But today, she really does not want IV pain meds nor does she want Vicodin. She wanted ibuprofen. Gave her 1 dose of ibuprofen. Watch her BUN and creatinine Qualifiers: Osteoarthritis location: multiple joints Osteoarthritis type: unspecified Qualified Code(s): M15.9 - Polyosteoarthritis, unspecified
[2018-01-04] MEDS: FUROSEMIDE 20 MG/2 ML VIAL IVP SCH (15:53)
[2018-01-05] MEDS: CLINDAMYCIN INJ 300 MG in SODIUM CHLORIDE 0.9% 50 ML IV SCH ×4 (03:43→18:24)
[2018-01-05] MEDS: SODIUM CHLORIDE FLUSH 0.9% 10 ML SYRINGE IVP SCH ×3 (03:43→16:10)
[2018-01-05 06:29] LABS: ALBUMIN 2.9 g/dL (3.2-5.5); CALCIUM 8.8 mg/dL (8.5-10.3); CREATININE 0.9 mg/dL (0.4-1.0); TOTAL PROTEIN 5.9 g/dL (6.7-8.2)
[2018-01-05] MEDS: PANTOPRAZOLE 40 MG VIAL IVP SCH ×2 (06:55→16:09)
[2018-01-05] MEDS: LEVOTHYROXINE 25 MCG TABLET PO SCH (06:55)
[2018-01-05] MEDS: FUROSEMIDE 20 MG/2 ML VIAL IVP SCH (08:43)
[2018-01-05] MEDS: DIGOXIN 125 MCG TABLET PO SCH (08:44)
[2018-01-05] MEDS: METOPROLOL SUCCINATE 50 MG TABLET PO SCH (08:45)
[2018-01-05] MEDS: POLYETHYLENE GLYCOL 3350 17 GM PACKET PO SCH (08:45)
[2018-01-05] MEDS: HYDROcod/ACETAM 5/325 MG TABLET PO PRN (18:29)
--- NOTE | 2018-01-05 19:05 | PROVIDER PROGRESS NOTE ---
Assessment/Plan - Problem List (1) Right middle lobe pulmonary infiltrate Assessment/Plan: Pt still has HAMMOND, bit not desaturating at rest. Continue iv antibiotics for presumed aspiration pneumonia. Continue PT. Probable need for Rehab with PT at a SNF after DCh here. (2) Acute right-sided heart failure Assessment/Plan: New edema suggests volume overload from many days of iv fluids on top of chronic R sided heart failure, secondary to COPD. Will stop iv fluids. Diuretics Leg elevation. (3) PVD (peripheral vascular disease) Assessment/Plan: Pt reports that she was recently seen for leg revascularization. She denies claudication but is minimally ambulatory due to her lung disease and is quickly SOB. Continue antiplatelet and statin agents. (4) Chronic a-fib Assessment/Plan: HR has been under better control since the RVR at admission. Pt not on anticoagulant due to history of GI bleed. Continue present meds for rate control. Assess HR response to activity with PT. (5) COPD (chronic obstructive pulmonary disease) Assessment/Plan: Continue inhalers. Assess O2 sats with PT and possible need for DCh with home O2. Will evaluate safety of DCh tomorrow. Pt is aware that she will need Rehab at SNF before return to home. (6) Partial small bowel obstruction Assessment/Plan: Resolved. No further pain, no N/V and able to eat solids. - Current Meds Current Meds: Current Medications Generic Name Dose Route Start Last Admin Trade Name Freq PRN Reason Stop Dose Admin Hydrocodone Bitart/Acetaminophen 1 tab 12/30/17 06:22 01/05/18 18:29 [place] 5/325 PO 1 tab Q4HR PRN Administration Pain 5 to 7 Hydrocodone Bitart/Acetaminophen 1 tab 12/30/17 06:22 01/04/18 19:34 [place] 10 Mg/325 Mg PO 1 tab Q4HR PRN Administration Pain 8 to 10 Albuterol 2.5 mg 12/30/17 07:06 01/04/18 04:15 INH 2.5 mg RTQ4H PRN Administration Wheezing Digoxin 125 mcg 12/30/17 09:00 01/05/18 08:44 Lanoxin PO 125 mcg DAILY HUONG Administration Furosemide 20 mg 01/04/18 15:00 01/05/18 08:43 Lasix Inj 20mg Vial IVP 20 mg DAILY HUONG Administration Clindamycin Phosphate 300 mg/ 52 mls @ 100 mls/hr 01/03/18 18:00 01/05/18 18:24 Sodium Chloride IV 100 mls/hr Q6HR HUONG Administration Sodium Chloride 1,000 mls @ 0 mls/hr 01/03/18 19:01 01/03/18 19:02 Normal Saline 0.9% IV 10 mls/hr Q24H PRN Administration TKO RATE TKO Levalbuterol HCl 1.25 mg 01/02/18 09:11 01/05/18 05:27 Xopenex INH 1.25 mg Q4H PRN Administration Shortness of Air/Wheezing Levothyroxine Sodium 50 mcg 12/30/17 07:00 01/05/18 06:55 Synthroid PO Not Given QDAC HUONG Loperamide HCl 2 mg 12/31/17 05:06 12/31/17 15:58 Imodium PO 2 mg QID PRN Administration Diarrhea Lorazepam 0.5 mg 01/01/18 14:39 01/03/18 19:14 Ativan Inj (Vial) IVP 0.5 mg Q2H PRN Administration Anxiety Metoprolol Succinate 100 mg 12/30/17 12:00 01/05/18 08:45 Toprol Xl PO 100 mg DAILY HUONG Administration Pantoprazole Sodium 40 mg 12/30/17 07:00 01/05/18 16:09 Protonix IVP 40 mg BIDAC HUONG Administration Polyethylene Glycol 17 gm 12/30/17 09:00 01/05/18 08:45 Miralax PO Not Given DAILY HUONG Prochlorperazine Edisylate 10 mg 12/30/17 06:22 12/30/17 10:31 Compazine Inj IVP 10 mg Q6HR PRN Administration Nausea / Vomiting Sodium Chloride 10 ml 12/30/17 06:22 01/04/18 06:18 Normal Saline Flush 0.9% IVP 10 ml PRN PRN Administration NEEDED PER PROVIDER ORDERS Sodium Chloride 10 ml 12/30/17 09:00 01/05/18 16:10 Normal Saline Flush 0.9% IVP 20 ml 0100,[id number],1700 HUONG Administration - Lab Result Fish Bone Diagrams: 01/06/18 06:30 01/06/18 06:30 Subjective - Subjective Patient Reports: Feeling Better, Shortness of Breath, Other (Very weak after walking in room) Objective Vital Signs: Vital Signs - 24 hr 01/04/18 01/04/18 01/04/18 19:20 20:09 20:20 Temperature 36.5 C Heart Rate Heart Rate [ 101 H Brachial] Respiratory 20 20 24 Rate Blood Pressure [Left Brachial artery] Blood Pressure 150/82 H [Right Brachial artery] O2 Saturation 100 01/05/18 01/05/18 01/05/18 05:29 08:13 11:30 Temperature 36.2 C L Heart Rate 64 65 Heart Rate [ 91 Brachial] Respiratory 16 20 14 Rate Blood Pressure 131/77 H [Left Brachial artery] Blood Pressure [Right Brachial artery] O2 Saturation 98 01/05/18 01/05/18 13:00 15:18 Temperature 36.8 C 36.4 C L Heart Rate Heart Rate [ 88 94 Brachial] Respiratory 18 18 Rate Blood Pressure 122/83 H [Left Brachial artery] Blood Pressure 146/83 H [Right Brachial artery] O2 Saturation 98 99 Oxygen O2 Source Room air I&O (Last 24 Hrs): Intake and Output Totals x24h 01/03/18 01/04/18 01/05/18 23:59 23:59 23:59 Intake Total 3014 868 542 Output Total 850 200 Balance 3014 18 342 General: Alert HEENT: Mucous membr. moist/pink Neck: Supple Neuro: Non Focal Cardiovascular: No murmurs, Other (Irreg irreg, no murmur) Respiratory: Other (Diminished, no wheezes) Abdomen: Soft Extremities: Other (2+ edema to mid shins, R>L, venous stasis changes of shins) - Results Results: Laboratory Results WBC 10.7 x10^3/uL (4.8-10.8) 01/04/18 05:51 RBC 3.87 10^6/uL (4.20-5.40) L 01/04/18 05:51 Hgb 12.4 g/dL (12.0-16.0) 01/04/18 05:51 Hct 37.4 % (37.0-47.0) 01/04/18 05:51 MCV 96.7 fL (81.0-99.0) 01/04/18 05:51 MCH 32.1 pg (27.0-31.0) H 01/04/18 05:51 MCHC 33.2 g/dL (32.0-36.0) 01/04/18 05:51 RDW 16.7 % (12.0-15.0) H 01/04/18 05:51 Plt Count 166 10^3/uL (130-450) 01/04/18 05:51 MPV 8.2 fL (7.9-10.8) 01/04/18 05:51 Neut # (Auto) 7.9 10^3/uL (1.5-6.6) H 01/04/18 05:51 Lymph # (Auto) 0.9 10^3/uL (1.5-3.5) L 01/04/18 05:51 [place] # (Auto) 1.5 10^3/uL (0.0-1.0) H 01/04/18 05:51 Eos # (Auto) 0.4 10^3/uL (0.0-0.7) 01/04/18 05:51 Baso # (Auto) 0.0 10^3/uL (0.0-0.1) 01/04/18 05:51 Absolute Nucleated RBC 0.00 x10^3/uL 01/04/18 05:51 Total Counted 100 12/30/17 04:30 Band Neuts % (Manual) 19 % (0-10) H 12/30/17 04:30 Abnorm Lymph % (Manual) 0 % 12/30/17 04:30 Nucleated RBC % 0.0 /100WBC 01/04/18 05:51 Neutrophils # (Manual) 1.8 10^3/uL (1.5-6.6) 12/30/17 04:30 Lymphocytes # (Manual) 0.5 10^3/uL (1.5-3.5) L 12/30/17 04:30 Monocytes # (Manual) 0.4 10^3/uL (0.0-1.0) 12/30/17 04:30 Eosinophils # (Manual) 0.0 10^3/uL (0-0.7) 12/30/17 04:30 Basophils # (Manual) 0.0 10^3/uL (0-0.1) 12/30/17 04:30 Differential Comment MANUAL DIFFERENTIAL 12/30/17 04:30 Manual Slide Review Indicated 01/03/18 06:26 Platelet Estimate NORMAL (130-450,000) (NORMAL) 12/30/17 04:30 RBC Morph Micro Appear 2+ ANISOCYTOSIS (NORMAL) 01/03/18 06:26 PT 12.5 secs (9.9-12.6) 12/30/17 04:30 INR 1.1 (0.8-1.2) 12/30/17 04:30 APTT 24.0 secs (24.9-33.3) L 12/30/17 04:30 Sodium 141 mmol/L (135-145) 01/05/18 06:10 Potassium 4.2 mmol/L (3.5-5.0) 01/05/18 06:10 Chloride 113 mmol/L (101-111) H 01/05/18 06:10 Carbon Dioxide 18 mmol/L (21-32) L 01/05/18 06:10 Anion Gap 10.0 (6-13) 01/05/18 06:10 BUN 12 mg/dL (6-20) 01/05/18 06:10 Creatinine 0.9 mg/dL (0.4-1.0) 01/05/18 06:10 Estimated GFR (MDRD) 60 (>89) L 01/05/18 06:10 Glucose 95 mg/dL (70-100) 01/05/18 06:10 Lactic Acid 1.6 mmol/L (0.5-2.2) 12/30/17 14:00 Calcium 8.8 mg/dL (8.5-10.3) 01/05/18 06:10 Phosphorus 2.2 mg/dL (2.5-4.6) L 01/03/18 06:26 Magnesium 1.6 mg/dL (1.7-2.8) L 01/03/18 06:26 Total Bilirubin 1.0 mg/dL (0.2-1.0) 01/05/18 06:10 AST 18 IU/L (10-42) 01/05/18 06:10 ALT 15 IU/L (10-60) 01/05/18 06:10 Alkaline Phosphatase 63 IU/L (42-121) 01/05/18 06:10 Troponin I < 0.04 ng/mL (<0.49) 01/02/18 16:55 B-Natriuretic Peptide 896 pg/mL (5-100) H 01/05/18 06:10 Total Protein 5.9 g/dL (6.7-8.2) L 01/05/18 06:10 Albumin 2.9 g/dL (3.2-5.5) L 01/05/18 06:10 Globulin 3.0 g/dL (2.1-4.2) 01/05/18 06:10 Albumin/Globulin Ratio 1.0 (1.0-2.2) 01/05/18 06:10 Lipase 20 U/L (22-51) L 12/30/17 04:30 Urine Color YELLOW 01/02/18 04:15 Urine Clarity CLEAR (CLEAR) 01/02/18 04:15 Urine pH 6.0 PH (5.0-7.5) 01/02/18 04:15 Ur Specific [place] 1.010 (1.002-1.030) 01/02/18 04:15 Urine Protein TRACE mg/dL (NEGATIVE) 01/02/18 04:15 Urine Glucose (UA) NEGATIVE mg/dL (NEGATIVE) 01/02/18 04:15 Urine Ketones TRACE mg/dL (NEGATIVE) 01/02/18 04:15 Urine Occult Blood NEGATIVE (NEGATIVE) 01/02/18 04:15 Urine Nitrite NEGATIVE (NEGATIVE) 01/02/18 04:15 Urine Bilirubin NEGATIVE (NEGATIVE) 01/02/18 04:15 Urine Urobilinogen 0.2 (NORMAL) E.U./dL (NORMAL) 01/02/18 04:15 Ur Leukocyte Esterase SMALL (NEGATIVE) H 01/02/18 04:15 Urine RBC 0-5 /HPF (0-5) 01/02/18 04:15 Urine WBC 6-10 /HPF (0-5) H 01/02/18 04:15 Ur Squamous Epith Cells MANY Squamous (<= Few) H 01/02/18 04:15 Urine Bacteria Rare /HPF (None Seen) 01/02/18 04:15 Ur Microscopic Review INDICATED 01/02/18 04:15 Urine Culture Comments NOT INDICATED 01/02/18 04:15 Last Dose Date UNK 12/30/17 04:30 Last Dose Time UNK 12/30/17 04:30 Digoxin 0.4 ng/mL 12/30/17 04:30 Blood Type O NEGATIVE 12/30/17 04:30 Antibody Screen NEGATIVE 12/30/17 04:30 - Procedures Procedures: Procedures INSPECTION OF UPPER INTESTINAL TRACT, ENDO (02/22/16) PACKED CELL TRANSFUSION (04/13/14)
[2018-01-05] MEDS: SODIUM CHLORIDE FLUSH 0.9% 10 ML SYRINGE IVP PRN (19:56)
[2018-01-06] MEDS: SODIUM CHLORIDE FLUSH 0.9% 10 ML SYRINGE IVP SCH ×4 (00:27→23:33)
[2018-01-06] MEDS: CLINDAMYCIN INJ 300 MG in SODIUM CHLORIDE 0.9% 50 ML IV SCH ×5 (00:27→23:30)
[2018-01-06] MEDS: PANTOPRAZOLE 40 MG VIAL IVP SCH ×2 (06:23→16:28)
[2018-01-06] MEDS: SODIUM CHLORIDE FLUSH 0.9% 10 ML SYRINGE IVP PRN ×2 (06:23→17:55)
[2018-01-06] MEDS: LEVOTHYROXINE 25 MCG TABLET PO SCH (06:23)
[2018-01-06 06:50] LABS: BASOPHILS # (AUTO) 0.1 10^3/uL (0.0-0.1); BASOPHILS % (AUTO) 0.6 %; EOSINOPHILS # (AUTO) 0.4 10^3/uL (0.0-0.7); HGB - HEMOGLOBIN 12.5 g/dL (12.0-16.0); LYMPHOCYTES # (AUTO) 1.1 10^3/uL (1.5-3.5); LYMPHOCYTES % (AUTO) 11.4 %; MEAN CORPUSCULAR HEMOGLOBIN 31.9 pg (27.0-31.0); MEAN CORPUSCULAR HGB CONC 33.4 g/dL (32.0-36.0); MEAN CORPUSCULAR VOLUME 95.5 fL (81.0-99.0); MEAN PLATELET VOLUME 8.4 fL (7.9-10.8); MONOCYTES % (AUTO) 10.2 %; NEUTROPHILS # (AUTO) 7.4 10^3/uL (1.5-6.6); NEUTROPHILS % (AUTO) 73.8 %; PLT - PLATELET COUNT 214 10^3/uL (130-450); RED BLOOD COUNT 3.93 10^6/uL (4.20-5.40); RED CELL DISTRIBUTION WIDTH 16.7 % (12.0-15.0)
[2018-01-06 07:00] LABS: CALCIUM 8.6 mg/dL (8.5-10.3)
[2018-01-06] MEDS ORDERED: MAGNESIUM SULFATE 2 GRAM 2 GM/50 ML BAG IV ONE (08:33)
[2018-01-06] MEDS: METOPROLOL SUCCINATE 50 MG TABLET PO SCH (08:42)
[2018-01-06] MEDS: DIGOXIN 125 MCG TABLET PO SCH (08:43)
[2018-01-06] MEDS: FUROSEMIDE 20 MG/2 ML VIAL IVP SCH (08:43)
[2018-01-06] MEDS: POLYETHYLENE GLYCOL 3350 17 GM PACKET PO SCH (08:43)
--- NOTE | 2018-01-06 19:34 | PROVIDER PROGRESS NOTE ---
Assessment/Plan - Problem List (1) Right middle lobe pulmonary infiltrate Assessment/Plan: Clinically improved. Change to po antibiotics planned Will check oximetry in am and plan DCh for PT rehab to SNF (2) Acute right-sided heart failure Assessment/Plan: continue gentle diuresis (3) PVD (peripheral vascular disease) Assessment/Plan: No complaints of claudication. Cont pre-hospitalization meds (4) Chronic a-fib Assessment/Plan: HR controlled OK to stop telemetry in preparation for DCh (5) COPD (chronic obstructive pulmonary disease) Assessment/Plan: Continue nebs and she would benefit from Pulmonary rehab in the long run. (6) Partial small bowel obstruction Assessment/Plan: Resolved several days ago. - Current Meds Current Meds: Current Medications Generic Name Dose Route Start Last Admin Trade Name Freq PRN Reason Stop Dose Admin Hydrocodone Bitart/Acetaminophen 1 tab 12/30/17 06:22 01/05/18 18:29 [place] 5/325 PO 1 tab Q4HR PRN Administration Pain 5 to 7 Hydrocodone Bitart/Acetaminophen 1 tab 12/30/17 06:22 01/04/18 19:34 [place] 10 Mg/325 Mg PO 1 tab Q4HR PRN Administration Pain 8 to 10 Albuterol 2.5 mg 12/30/17 07:06 01/04/18 04:15 INH 2.5 mg RTQ4H PRN Administration Wheezing Digoxin 125 mcg 12/30/17 09:00 01/06/18 08:43 Lanoxin PO 125 mcg DAILY HUONG Administration Furosemide 20 mg 01/04/18 15:00 01/06/18 08:43 Lasix Inj 20mg Vial IVP 20 mg DAILY HUONG Administration Clindamycin Phosphate 300 mg/ 52 mls @ 100 mls/hr 01/03/18 18:00 01/06/18 18:30 Sodium Chloride IV Infused Q6HR HUONG Infusion Levalbuterol HCl 1.25 mg 01/02/18 09:11 01/05/18 05:27 Xopenex INH 1.25 mg Q4H PRN Administration Shortness of Air/Wheezing Levothyroxine Sodium 50 mcg 12/30/17 07:00 01/06/18 06:23 Synthroid PO 50 mcg QDAC HUONG Administration Loperamide HCl 2 mg 12/31/17 05:06 12/31/17 15:58 Imodium PO 2 mg QID PRN Administration Diarrhea Lorazepam 0.5 mg 01/01/18 14:39 01/03/18 19:14 Ativan Inj (Vial) IVP 0.5 mg Q2H PRN Administration Anxiety Metoprolol Succinate 100 mg 12/30/17 12:00 01/06/18 08:42 Toprol Xl PO 100 mg DAILY HUONG Administration Pantoprazole Sodium 40 mg 12/30/17 07:00 01/06/18 16:28 Protonix IVP 40 mg BIDAC HUONG Administration Polyethylene Glycol 17 gm 12/30/17 09:00 01/06/18 08:43 Miralax PO Not Given DAILY HUONG Prochlorperazine Edisylate 10 mg 12/30/17 06:22 12/30/17 10:31 Compazine Inj IVP 10 mg Q6HR PRN Administration Nausea / Vomiting Sodium Chloride 10 ml 12/30/17 06:22 01/06/18 17:55 Normal Saline Flush 0.9% IVP 20 ml PRN PRN Administration NEEDED PER PROVIDER ORDERS Sodium Chloride 10 ml 12/30/17 09:00 01/06/18 16:28 Normal Saline Flush 0.9% IVP 20 ml 0100,0900,1700 HUONG Administration - Lab Result Fish Bone Diagrams: 01/06/18 06:30 01/06/18 06:30 - Additional Planning My Orders: My Active Orders 01/05/18 19:39 Elevate Extremity [RC] prn 01/05/18 19:40 Miscellaenous Nursing Order [RC] QSHIFT Subjective - Subjective Patient Reports: Feeling Better, Other (Legs still swollen) Objective Vital Signs: Vital Signs - 24 hr 01/05/18 01/05/18 01/06/18 20:13 21:05 00:30 Temperature 36.5 C 36.2 C L Heart Rate 87 Heart Rate [ 87 86 Brachial] Respiratory 18 18 16 Rate Blood Pressure 106/58 L 142/75 H [Right Brachial artery] O2 Saturation 98 96 01/06/18 01/06/18 01/06/18 06:13 07:30 08:04 Temperature 36.7 C 36.3 C L Heart Rate 89 Heart Rate [ 98 62 Brachial] Respiratory 16 16 18 Rate Blood Pressure 157/83 H 148/96 H [Right Brachial artery] O2 Saturation 99 97 01/06/18 01/06/18 13:00 15:37 Temperature 37.0 C 36.3 C L Heart Rate Heart Rate [ 85 78 Brachial] Respiratory 18 20 Rate Blood Pressure 131/70 H 133/77 H [Right Brachial artery] O2 Saturation 97 98 Oxygen O2 Source Room air I&O (Last 24 Hrs): Intake and Output Totals x24h 01/04/18 01/05/18 01/06/18 23:59 23:59 23:59 Intake Total 868 1323 1128 Output Total 239 021 7044 Balance 18 1023 28 General: Alert, Oriented x3 HEENT: Mucous membr. moist/pink Neck: Supple Neuro: Non Focal Cardiovascular: Other (2/6 syst murmur) Respiratory: Other (Poor air movement, but no wheezing) Abdomen: Soft Extremities: Other (1+ edema to 1/3 up, venous stasis changes old) - Results Results: Laboratory Results WBC 10.0 x10^3/uL (4.8-10.8) 01/06/18 06:30 RBC 3.93 10^6/uL (4.20-5.40) L 01/06/18 06:30 Hgb 12.5 g/dL (12.0-16.0) 01/06/18 06:30 Hct 37.5 % (37.0-47.0) 01/06/18 06:30 MCV 95.5 fL (81.0-99.0) 01/06/18 06:30 MCH 31.9 pg (27.0-31.0) H 01/06/18 06:30 MCHC 33.4 g/dL (32.0-36.0) 01/06/18 06:30 RDW 16.7 % (12.0-15.0) H 01/06/18 06:30 Plt Count 214 10^3/uL (130-450) 01/06/18 06:30 MPV 8.4 fL (7.9-10.8) 01/06/18 06:30 Neut # (Auto) 7.4 10^3/uL (1.5-6.6) H 01/06/18 06:30 Lymph # (Auto) 1.1 10^3/uL (1.5-3.5) L 01/06/18 06:30 [place] # (Auto) 1.0 10^3/uL (0.0-1.0) 01/06/18 06:30 Eos # (Auto) 0.4 10^3/uL (0.0-0.7) 01/06/18 06:30 Baso # (Auto) 0.1 10^3/uL (0.0-0.1) 01/06/18 06:30 Absolute Nucleated RBC 0.01 x10^3/uL 01/06/18 06:30 Total Counted 100 12/30/17 04:30 Band Neuts % (Manual) 19 % (0-10) H 12/30/17 04:30 Abnorm Lymph % (Manual) 0 % 12/30/17 04:30 Nucleated RBC % 0.1 /100WBC 01/06/18 06:30 Neutrophils # (Manual) 1.8 10^3/uL (1.5-6.6) 12/30/17 04:30 Lymphocytes # (Manual) 0.5 10^3/uL (1.5-3.5) L 12/30/17 04:30 Monocytes # (Manual) 0.4 10^3/uL (0.0-1.0) 12/30/17 04:30 Eosinophils # (Manual) 0.0 10^3/uL (0-0.7) 12/30/17 04:30 Basophils # (Manual) 0.0 10^3/uL (0-0.1) 12/30/17 04:30 Differential Comment MANUAL DIFFERENTIAL 12/30/17 04:30 Manual Slide Review Indicated 01/03/18 06:26 Platelet Estimate NORMAL (130-450,000) (NORMAL) 12/30/17 04:30 RBC Morph Micro Appear 2+ ANISOCYTOSIS (NORMAL) 01/03/18 06:26 PT 12.5 secs (9.9-12.6) 12/30/17 04:30 INR 1.1 (0.8-1.2) 12/30/17 04:30 APTT 24.0 secs (24.9-33.3) L 12/30/17 04:30 Sodium 140 mmol/L (135-145) 01/06/18 06:30 Potassium 4.2 mmol/L (3.5-5.0) 01/06/18 06:30 Chloride 110 mmol/L (101-111) 01/06/18 06:30 Carbon Dioxide 21 mmol/L (21-32) 01/06/18 06:30 Anion Gap 9.0 (6-13) 01/06/18 06:30 BUN 12 mg/dL (6-20) 01/06/18 06:30 Creatinine 1.0 mg/dL (0.4-1.0) 01/06/18 06:30 Estimated GFR (MDRD) 53 (>89) L 01/06/18 06:30 Glucose 98 mg/dL (70-100) 01/06/18 06:30 Lactic Acid 1.6 mmol/L (0.5-2.2) 12/30/17 14:00 Calcium 8.6 mg/dL (8.5-10.3) 01/06/18 06:30 Phosphorus 2.2 mg/dL (2.5-4.6) L 01/03/18 06:26 Magnesium 1.6 mg/dL (1.7-2.8) L 01/06/18 06:30 Total Bilirubin 1.0 mg/dL (0.2-1.0) 01/05/18 06:10 AST 18 IU/L (10-42) 01/05/18 06:10 ALT 15 IU/L (10-60) 01/05/18 06:10 Alkaline Phosphatase 63 IU/L (42-121) 01/05/18 06:10 Troponin I < 0.04 ng/mL (<0.49) 01/02/18 16:55 B-Natriuretic Peptide 896 pg/mL (5-100) H 01/05/18 06:10 Total Protein 5.9 g/dL (6.7-8.2) L 01/05/18 06:10 Albumin 2.9 g/dL (3.2-5.5) L 01/05/18 06:10 Globulin 3.0 g/dL (2.1-4.2) 01/05/18 06:10 Albumin/Globulin Ratio 1.0 (1.0-2.2) 01/05/18 06:10 Lipase 20 U/L (22-51) L 12/30/17 04:30 Urine Color YELLOW 01/02/18 04:15 Urine Clarity CLEAR (CLEAR) 01/02/18 04:15 Urine pH 6.0 PH (5.0-7.5) 01/02/18 04:15 Ur Specific [place] 1.010 (1.002-1.030) 01/02/18 04:15 Urine Protein TRACE mg/dL (NEGATIVE) 01/02/18 04:15 Urine Glucose (UA) NEGATIVE mg/dL (NEGATIVE) 01/02/18 04:15 Urine Ketones TRACE mg/dL (NEGATIVE) 01/02/18 04:15 Urine Occult Blood NEGATIVE (NEGATIVE) 01/02/18 04:15 Urine Nitrite NEGATIVE (NEGATIVE) 01/02/18 04:15 Urine Bilirubin NEGATIVE (NEGATIVE) 01/02/18 04:15 Urine Urobilinogen 0.2 (NORMAL) E.U./dL (NORMAL) 01/02/18 04:15 Ur Leukocyte Esterase SMALL (NEGATIVE) H 01/02/18 04:15 Urine RBC 0-5 /HPF (0-5) 01/02/18 04:15 Urine WBC 6-10 /HPF (0-5) H 01/02/18 04:15 Ur Squamous Epith Cells MANY Squamous (<= Few) H 01/02/18 04:15 Urine Bacteria Rare /HPF (None Seen) 01/02/18 04:15 Ur Microscopic Review INDICATED 01/02/18 04:15 Urine Culture Comments NOT INDICATED 01/02/18 04:15 Last Dose Date UNK 12/30/17 04:30 Last Dose Time UNK 12/30/17 04:30 Digoxin 0.4 ng/mL 12/30/17 04:30 Blood Type O NEGATIVE 12/30/17 04:30 Antibody Screen NEGATIVE 12/30/17 04:30 - Procedures Procedures: Procedures INSPECTION OF UPPER INTESTINAL TRACT, ENDO (02/22/16) PACKED CELL TRANSFUSION (04/13/14) ABX Reporting Has patient been on IV antibiotics over the past 48 hours?: Yes
[2018-01-07] MEDS: SODIUM CHLORIDE FLUSH 0.9% 10 ML SYRINGE IVP PRN ×2 (06:16→12:44)
[2018-01-07] MEDS: LEVOTHYROXINE 25 MCG TABLET PO SCH (06:16)
[2018-01-07] MEDS: CLINDAMYCIN INJ 300 MG in SODIUM CHLORIDE 0.9% 50 ML IV SCH ×2 (06:16→12:43)
[2018-01-07] MEDS: PANTOPRAZOLE 40 MG VIAL IVP SCH (06:16)
[2018-01-07] MEDS: METOPROLOL SUCCINATE 50 MG TABLET PO SCH (08:16)
[2018-01-07] MEDS: DIGOXIN 125 MCG TABLET PO SCH (08:16)
[2018-01-07] MEDS: FUROSEMIDE 20 MG/2 ML VIAL IVP SCH (08:16)
[2018-01-07] MEDS: SODIUM CHLORIDE FLUSH 0.9% 10 ML SYRINGE IVP SCH (08:17)
[2018-01-07] MEDS: POLYETHYLENE GLYCOL 3350 17 GM PACKET PO SCH (08:17)
[2018-01-07 12:35] VITALS: BP 135/64
--- NOTE | 2018-01-07 14:00 | Discharge Plan ---
"Discharge Plan [facility] / [facility] - Discharge Plan And Transition Orders Disposition: 03 SNF DC/Xfer Condition: Poor Allergies and Adverse Reactions: Allergies Allergy/AdvReac Type Severity Reaction Status Date / Time adhesive AdvReac Rash Verified 12/30/17 04:36 lisinopril AdvReac Respiratory Verified 12/30/17 04:36 - SNF / SKILLED NURSING Transition Orders Admit [facility] [place] Under the care of (Name): Dr Adam Burden Discharge Diagnosis: 1) Partial small bowel obstruction 2) Acute Kidney Injury 3) R middle lobe aspiration pneumonia 4) R sided heart failure 5) PVD w/ probable claudication 6) Chronic Afib, not on anticoagulant due to Hx of GI bleed 7) COPD 8) Hypothyroidism 9) Anxiety and claustrophobia 10) GERD 11) chronic back pain Medicare Certification Statement: I certify that Post Hospital detention care is medically necessary on a continuing basis for any of the conditions for which she/he is receiving care during hospitalization. Notify PCP of admission and forward orders to primary provider for signature. Weight on admission and: Daily Call PCP immediately if weight increases by: 3 kg (if over 3 kg gain in 1 day) Other Notification Orders: Call PCP immediately if patient develops dyspnea, chest pain/tightness or edema. House Bowel Program: Yes Additional Bowel Program Orders: If no BM after 2 days, nurse may give M.O.M. 30ml PO PRN and/or ducolax Supp 1 TN and/or BRIDGER 250mg P.O., and/or senna 1-2 tabs PO. On day 3 nurse may give repeat above order until residents constipation is resolved. Annual Influenza Vaccine (between Dec 26 and July 25): Yes Two-step PPD per [facility] [phone] or approved exception documents: Yes Treatments & Other Orders: Keep legs elevated when OOB in chair Medication Orders: PLEASE REFER TO THE DISCHARGE MEDICATION LIST. Insulin Orders?: No - Medications New Prescriptions: Clindamycin HCl [Clindamycin 300MG CAP] 300 mg PO TID #9 capsule - Diet Type: Geriatric Texture: Regular Liquids: Thin May have monthly special meal: Yes - Therapies | Activity Therapy: Evaluation | Treat if indicated: PT, OT Rehabilitation Potential: Maximize functional status Activity: Activity as Tolerated Assistance Devices: Walker Follow Up: See your PCP in follow-up after discharge from [facility]"
--- NOTE | 2018-01-26 12:25 | DISCHARGE SUMMARY ---
Physician: Yaneth Stallings MD DATE OF ADMISSION: 12/30/2017 DATE OF DISCHARGE: 01/07/2018 HISTORY OF PRESENT ILLNESS: This is an 82-year-old white female, who lives alone, has a history of hypertension, chronic atrial fib not on anticoagulants because of a history of GI bleed, history of osteoarthritis, peripheral vascular disease, GERD, asthma, anxiety; history of hernia surgeries and hysterectomy, coronary stenting, and tonsillectomy/adenoidectomy. The patient presented with a 3-day history of nausea and vomiting, then retching. She did not have fever or chills, stated that eventually nothing would stay down and she would vomit it up entirely. In the emergency room, she was afebrile, tachycardic with A-Fib at a rate of 133, tachypneic with a respiratory rate of 24. She had a white count of 2.7, but elevated bands of 19% and appeared to be dehydrated with a creatinine of 1.9 (baseline 1.1). She had a mildly elevated anion gap with hypokalemia from her vomiting. She was given fluids and antiemetics in the ER and was admitted for management of the above. Initial imaging showed moderate cardiomegaly, tiny bilateral pleural effusions, unremarkable gallbladder, moderately to markedly dilated stomach, proximal third of the small bowel with eventual transition to a small caliber in the terminal ileum. There were multiple diverticula in the colon. There was no free air or free fluid or adenopathy. The spine showed degenerative changes and scoliosis. HOSPITAL COURSE AND DISCHARGE DIAGNOSES 1. Small-bowel obstruction. The patient was kept n.p.o., given antiemetics and IV fluids. She had continuing nausea and vomiting; however on day 2 of the admission she was witnessed to put a finger down her throat to induce vomiting. The Hospitalist advised her not to do this as it would interfere with her natural course of resolution of vomiting. Eventually the patient was able to belch and also started to have diarrhea. The diarrhea was evaluated for C. difficile and Campylobacter, and these were negative. Imodium was started with improvement. Her diet was advanced to clear liquids and then eventually a diet that she was able to tolerate. Her discharge was held up by development of an aspiration pneumonia (see below). 2. Acute kidney injury. The patient's BUN and creatinine on presentation were 52 and 1.9 (baseline creatinine 1.1). With iv hydration and then eventually a normal diet, her creatinine normalized to 0.9 by day 3. At discharge, her creatinine was 1.0. 3. Right middle and lower lobe aspiration pneumonia. The patient was witnessed to induce vomiting. On the following day, she had more shortness of breath. Followup imaging showed a definite infiltrate in the right lung. The patient was started on antibiotics for an aspiration pneumonia, nebulizers p.r.n. She was discharged to finish 3 more days of oral Clindamycin. 4. Right-sided heart failure and pulmonary HTN. Since her IV hydration continued for many days, the patient developed volume overload. Echo imaging showed that she had probable chronic right-sided heart failure secondary to COPD. The IV fluids were stopped, she received diuretics for several days as well as leg elevation and had slow improvement of the edema. The Echocardiogram was read as having sigmoid-shaped septum of the left ventricle with LVEF of 50%- 55%, severe left atrial and right atrial enlargement, [id number] mitral regurgitation, moderate tricuspid regurgitation, RVSP of 64 mmHg, which was up from 32 mmHg from an Echo done in 2013. 5. Peripheral vascular disease with probable claudication. Toward the end of her hospital stay, she did describe painful legs. Part of this was felt to be from her new leg edema, but also she then gave a detailed report of having been seen at another facility with attempt at peripheral arterial intervention that was not successful according to her report. The patient was kept on her antiplatelet agents while here. 6. Chronic atrial fibrillation, not on anticoagulant due to history of gastrointestinal bleed. The patient's initial heart rate was elevated. A-Fib with RVR was felt to be from her hypovolemia. With volume replacement and continuation of her medications, her rate became under control. For stroke prophylaxis, the patient was kept on her aspirin as an alternative to anticoagulants, which were not used because of her history of GI bleed. 7. Chronic obstructive pulmonary disease/asthma. The patient did have "a panic attack and sense of doom" on day 3 and was worked up for an acute pulmonary embolism with a CTA of the chest. This did not show pulmonary embolism, but confirmed the cardiomegaly and right lung infiltrate. She was given anxiolytics, nebulizers, and had no further episodes of sudden shortness of breath. 8. Hypothyroidism. The patient was kept on her thyroid medication while here. 9. Anxiety and claustrophobia. The patient was kept on her anxiolytic while here. 10. Gastroesophageal reflux disease. The patient was on GI ulcer prophylaxis. Besides her symptoms of bowel obstruction with nausea, and vomiting, after those resolved, there were no symptoms of acid reflux. 11. Chronic back pain. The patient was on pain medications throughout her course as needed. ALLERGIES: ADHESIVE TAPE AND LISINOPRIL. DISCHARGE MEDICATIONS 1. Albuterol inhaler p.r.n. 2. Vitamin C 1000 mg daily. 3. Aspirin 81 mg daily. 4. Lipitor 60 mg every evening. 5. Calcium 600 mg daily. 6. Vitamin D3 at 400 units daily. 7. Vitamin B12 at 2000 mcg daily. 8. Digoxin 125 mcg daily. 9. Lasix 40 mg daily. 10. Tylenol with codeine q.6 h. p.r.n. 11. Levothyroxine 50 mcg daily. 12. Metoprolol succinate 100 mg daily. 13. Multivitamin daily. 14. Ambien 5 mg q.p.m. p.r.n. 15. Clindamycin 300 mg t.i.d. for 3 more days to treat the aspiration pneumonia. LABORATORY AND IMAGING: Reviewed and summarized above. CONDITION AT DISCHARGE: Stable. PHYSICAL EXAMINATION VITAL SIGNS: Blood pressure 135/64, pulse of 70-100 in A-Fib, afebrile, room air saturation 95%. HEENT: Unremarkable. NECK: Without JVD, and no carotid bruits. CHEST: Diminished breath sounds in the right side with rales in the right posterior base. Scattered wheezes anteriorly. Heart sounds had a 1 to 2/6 systolic murmur. No heave. ABDOMEN: Soft with positive bowel sounds. Nontender. No organomegaly. EXTREMITIES: Venous stasis changes of the lower shins, 1+ edema to the mid shins. Her DP pulses were fair. There were no leg ulcers. NEUROLOGIC: Intact. FOLLOWUP: This will be determined after her stay at [facility], where she was discharged for physical therapy rehab. CODE STATUS: DNR. TIME REQUIRED TO COMPLETE THIS ENTIRE DISCHARGE, DICTATION, CHART REVIEW, SNF ORDERS, PATIENT EDUCATION: 60 minutes. cc: Delvin Parrish DO TD: 01/26/2018 11:20 [email or web address]
== END 2018-01-07 15:06 | DRG 388 ==
LOC: EDUNIT# → ED 04:17 → SUPCPDRO 04:17 → MS2 06:22 → OBSVTOIN 12-31 11:43
PROVIDERS: ADMIT Internal Medicine; ATTEND Internal Medicine
DX: K92.0 Hematemesis (principal); I48.91 Unspecified atrial fibrillation; K56.51 Intestinal adhesions [bands], with partial obstruction; J69.0 Pneumonitis due to inhalation of food and vomit; N17.9 Acute kidney failure, unspecified; I48.2 Chronic atrial fibrillation; D72.819 Decreased white blood cell count, unspecified; D72.825 Bandemia; K59.00 Constipation, unspecified; I11.0 Hypertensive heart disease with heart failure; I50.813 Acute on chronic right heart failure; T50.3X5A Adverse effect of electrolytic, caloric and water-balance agents, initial encounter; E87.8 Other disorders of electrolyte and fluid balance, not elsewhere classified; Y92.230 Patient room in hospital as the place of occurrence of the external cause; K29.70 Gastritis, unspecified, without bleeding; R19.7 Diarrhea, unspecified; I27.23 Pulmonary hypertension due to lung diseases and hypoxia; I50.9 Heart failure, unspecified; I25.10 Atherosclerotic heart disease of native coronary artery without angina pectoris; I38 Endocarditis, valve unspecified; I08.1 Rheumatic disorders of both mitral and tricuspid valves; E86.1 Hypovolemia; E86.0 Dehydration; E87.6 Hypokalemia; E80.6 Other disorders of bilirubin metabolism; I73.9 Peripheral vascular disease, unspecified; K21.0 Gastro-esophageal reflux disease with esophagitis; J44.9 Chronic obstructive pulmonary disease, unspecified; J45.20 Mild intermittent asthma, uncomplicated; Z87.891 Personal history of nicotine dependence; F41.0 Panic disorder [episodic paroxysmal anxiety]; K57.30 Diverticulosis of large intestine without perforation or abscess without bleeding; E03.9 Hypothyroidism, unspecified; F40.240 Claustrophobia; E78.5 Hyperlipidemia, unspecified; M15.9 Polyosteoarthritis, unspecified; T44.7X6A Underdosing of beta-adrenoreceptor antagonists, initial encounter; T46.0X6A Underdosing of cardiac-stimulant glycosides and drugs of similar action, initial encounter; T46.1X6A Underdosing of calcium-channel blockers, initial encounter; Z91.138 Patient's unintentional underdosing of medication regimen for other reason; G89.29 Other chronic pain; M54.9 Dorsalgia, unspecified; M41.9 Scoliosis, unspecified; I87.8 Other specified disorders of veins; Z66 Do not resuscitate; Z87.19 Personal history of other diseases of the digestive system; Z95.5 Presence of coronary angioplasty implant and graft; Z90.710 Acquired absence of both cervix and uterus; Z79.02 Long term (current) use of antithrombotics/antiplatelets; Z79.82 Long term (current) use of aspirin; Z79.899 Other long term (current) drug therapy; Z79.891 Long term (current) use of opiate analgesic
CPT/HCPCS: 36415; 71275; 74018; 74022; 74176; 80048; 80053; 80162; 81001; 81003; 81599; 83605; 83690; 83735; 83880; 84100; 84484; 85025; 85610; 85730; 86850; 86900; 86901; 87045; 87046; 87086; 87493; 93005; 93306; 94640; 94761; 96361; 96365; 96375; 96376; 99284; 99285

== ENCOUNTER 2018-01-12 11:15 | Outpatient (CLI) | payer MEDICARE, OTHER | END 2018-01-12 11:16 | disposition critical access hospital (66) | LOC: EMS 11:15 | PROVIDERS: ATTEND Surgery | DX: M79.89 Other specified soft tissue disorders (principal); M79.605 Pain in left leg | CPT/HCPCS: A0425; A0429 ==

== ENCOUNTER 2018-01-12 11:22 | Emergency (ER) | payer MEDICARE, OTHER ==
[2018-01-12 12:17] LABS: BASOPHILS # (AUTO) 0.1 10^3/uL (0.0-0.1); BASOPHILS % (AUTO) 0.8 %; EOSINOPHILS # (AUTO) 0.1 10^3/uL (0.0-0.7); LYMPHOCYTES # (AUTO) 0.7 10^3/uL (1.5-3.5); LYMPHOCYTES % (AUTO) 5.3 %; MEAN CORPUSCULAR HEMOGLOBIN 30.7 pg (27.0-31.0); MEAN CORPUSCULAR HGB CONC 33.8 g/dL (32.0-36.0); MEAN PLATELET VOLUME 7.7 fL (7.9-10.8); MONOCYTES # (AUTO) 1.2 10^3/uL (0.0-1.0); MONOCYTES % (AUTO) 9.2 %; NEUTROPHILS # (AUTO) 10.8 10^3/uL (1.5-6.6); NEUTROPHILS % (AUTO) 83.7 %; PLT - PLATELET COUNT 320 10^3/uL (130-450); RED BLOOD COUNT 3.59 10^6/uL (4.20-5.40); WHITE BLOOD COUNT 12.8 x10^3/uL (4.8-10.8)
[2018-01-12 12:22] LABS: INR 1.2 (0.8-1.2); PT - PROTHROMBIN TIME 13.1 secs (9.9-12.6)
[2018-01-12 12:23] LABS: CALCIUM 8.3 mg/dL (8.5-10.3); CREATININE 0.9 mg/dL (0.4-1.0)
--- NOTE | 2018-01-12 12:31 | ED Physician Documentation ---
History of Present Illness - Stated complaint Stated Complaint: UNABLE TO WALK - Chief complaint Chief Complaint: Ext Problem - Additonal information Additional information: hx from pt 82 f 3 weeks s/p vascular procedure LLE vascular insuff, has had prior stents, states this problem could not be stented then she ended up admitted to [facility] for other reasons was dced to [facility] seen by MD at [facility] today and notes to have a painful dusky LLE with no pedal pulse pt states pain worsening for 2 days and so bad she cannot walk on it now denies fever no CP no SOA no abd pain has a skin tear to posterior calf from a wheelchair injury a fib but not on blood thinners other than asa at this time, prior GIB Review of Systems Constitutional: denies: Fever Cardiac: denies: Chest pain / pressure Respiratory: denies: Dyspnea GI: denies: Abdominal Pain Musculoskeletal: reports: Extremity pain Endocrine: denies: Easy bruising / bleeding Immunocompromised: denies: Immunocompromised PD PAST MEDICAL HISTORY - Past Medical History Cardiovascular: Congestive heart failure, Coronary artery disease, Atrial flutter, Atrial fibrillation, Valve disorder Respiratory: COPD Endocrine/Autoimmune: None GI: GERD : Incontinence HEENT: Other Psych: Panic attacks Musculoskeletal: None Derm: None - Past Surgical History Past Surgical History: Yes /REMOTE OPERATIONS PRODUCER: Hysterectomy Cardiovascular: Coronary stent HEENT: Tonsil/Adenoidectomy - Present Medications Home Medications: Ambulatory Orders Medication Instructions Recorded Confirmed Zolpidem [Ambien] 5 mg PO QPM PRN 02/14/16 12/30/17 Atorvastatin Calcium 60 mg PO QPM 02/21/16 12/30/17 Hydrocodone/Acetaminophen 1 tab PO Q6H PRN 02/21/16 12/30/17 [Hydrocodon-Acetaminophen 5-325] Levothyroxine Sodium 50 mcg PO QDAC 02/21/16 12/30/17 Furosemide [Lasix] 40 mg PO DAILY 09/24/16 12/30/17 Ascorbic Acid [Vitamin C] 1,000 mg PO DAILY 11/25/16 12/30/17 Cyanocobalamin (Vitamin B-12) 2,000 mcg PO DAILY 11/25/16 12/30/17 [Vitamin B-12] Digoxin 125 mcg PO DAILY 11/25/16 12/30/17 Multivitamin [Multiple Vitamins] 1 tab PO DAILY 11/25/16 12/30/17 Albuterol Sulfate [Proair Hfa 2 puffs IH Q4HR PRN 12/30/17 12/30/17 Inhaler] Aspirin [Aspirin EC] 81 mg PO DAILY 12/30/17 12/30/17 Calcium Carbonate [Calcium] 600 mg PO DAILY 12/30/17 12/30/17 Cholecalciferol (Vitamin D3) 400 units PO DAILY 12/30/17 12/30/17 [Vitamin D3] Metoprolol Succinate 100 mg PO DAILY 12/30/17 12/30/17 Clindamycin HCl [Clindamycin 300MG 300 mg PO TID #9 capsule 01/07/18 CAP] - Allergies Allergies/Adverse Reactions: Allergies Allergy/AdvReac Type Severity Reaction Status Date / Time adhesive AdvReac Rash Verified 12/30/17 04:36 lisinopril AdvReac Respiratory Verified 12/30/17 04:36 - Social History Does the pt smoke?: No Smoking Status: Never smoker Does the pt drink ETOH?: No Does the pt have substance abuse?: No - Immunizations Immunizations are current?: Yes - POLST Patient has POLST: No POLST Status: DNR PD ED PE NORMAL - Vitals Vital signs reviewed: Yes - Neck Neck: Supple, no meningeal sign - Cardiac Cardiac: RRR - Respiratory Respiratory: No respiratory distress, Clear bilaterally - Abdomen Abdomen: Non tender - Extremities Extremities: Other (sergio LE s edema, LLE dusky pink mid lower leg down, no pedal pulse either foot, + cap refill though, severe pain to touch, crusted wound to calf s erythema or dc, no heel toe ulcer, no politeal cord or TTP) Results - Vitals Vitals: Vital Signs - 24 hr 01/12/18 01/12/18 11:24 18:57 Temperature 36.7 C Heart Rate 93 88 Respiratory 18 18 Rate Blood Pressure 142/89 H 163/87 H O2 Saturation 98 97 Oxygen O2 Source Room air - Labs Labs: Laboratory Tests 01/12/18 01/12/18 01/12/18 12:00 12:00 12:00 WBC 12.8 H RBC 3.59 L Hgb 11.0 L Hct 32.7 L MCV 91.0 MCH 30.7 MCHC 33.8 RDW 16.0 H Plt Count 320 MPV 7.7 L Neut # (Auto) 10.8 H Lymph # (Auto) 0.7 L Hodgeman # (Auto) 1.2 H Eos # (Auto) 0.1 Baso # (Auto) 0.1 Absolute Nucleated RBC 0.00 Nucleated RBC % 0.0 PT 13.1 H INR 1.2 APTT 27.6 Sodium 140 Potassium 3.5 Chloride 101 Carbon Dioxide 30 Anion Gap 9.0 BUN 11 Creatinine 0.9 Estimated GFR (MDRD) 60 L Glucose 101 H Calcium 8.3 L - Rads (name of study) arterial duplex Radiology: See rad report (d/w rad and compared vascular studies dated 11/27 - her sup femoral artery stent was and still is occluded and now poplitealis occluded too and blood flow is being preserved by the profunda femoris - reading rec thinks the sx are due to venous occlusion and rec venous doppler) venous duplex Radiology: See rad report (no DVT) PD MEDICAL DECISION MAKING - ED course ED course: obtained records from [facility] dated 11/27/17 : pertinent findings: prior R SFA and R popliteal and L SFA are all occluded, similar sono findings to prior, angiogram showed calcified aorta, tortuous iliac vessels s stenosis, chronic total occlusion of L SFA with excellent collateralization via profundus femoris, reconstitution through popliteal, distal leg was not imaged to conserve contrast, pt had attempted but failed crossing of TASC D lesion, pt declined open surgery, she only had surgical options left, per vascular if pt is on brink of amputation consider popliteal access to cross occlusion via retrograde fashion but vascular notes low chance of success and high chance of damage and would only pursue if imminent amputation after getting arterial and venous duplex scans which took many many hr, called in call vascular at [facility] neither the caption writer vascular nor I have seen the pt before and so diff to know how changed exam is but based on vascular notes from November it seems she did not have pulses then either and furthermore she could be stented and declined open surgery vascular rec that if there is cap refilled and profunda femoris collateral flow that she does not need to be emergently transferred she does not think heparin will help but per prior vascular notes, if foot is not necrotic or in need of amputation there is not much more that can be done so no need to transfer but she does recommend pt see Dr Bee again as outpt for further discussion of option of risky retrograde stent - Sepsis Event Vital Signs: Vital Signs - 24 hr 01/12/18 01/12/18 11:24 18:57 Temperature 36.7 C Heart Rate 93 88 Respiratory 18 18 Rate Blood Pressure 142/89 H 163/87 H O2 Saturation 98 97 Oxygen O2 Source Room air Departure - Departure Disposition: Home, Self Care Clinical Impression: PVD (peripheral vascular disease) with claudication Condition: Fair Follow-Up: Delvin Parrish DO [Primary Care Provider] - Comments: The blood vessel ultrasound tests today show similar results as the tests you had in November In November Dr Bee tried to resent your leg but it could not be done The only other option would be open surgery to to try a retrograde (bottom up) stent placement both of which are much riskier and his notes indicate this would only be considered if your foot was necrotic or about to be amputated I talked to the vascular doctor caption writer and we reviewed your exam and results At this time, unfortunately, it seem that not much more can be done for your legs. She advises you can go back to [facility] for now, but should schedule an appointment to see Dr Bee in his office in the next week or so
--- NOTE | 2018-01-12 14:26 | Ultrasound Report ---
Reason: 3 weeks post vascular sugery with possible ischemi Procedure Date: 01/12/2018 Accession Number: [id number] / [id number] Procedure: US - Duplex Lwr Ext Arterial LT CPT Code: FULL RESULT: EXAM: LEFT LOWER EXTREMITY ARTERIAL DOPPLER ULTRASOUND EXAM DATE: 01/12/2018 12:50 PM. CLINICAL HISTORY: 3 weeks post vascular surgery with possible ischemia. COMPARISON: None. TECHNIQUE: Real-time sonographic vascular imaging was performed by the public health staff nurse, utilizing color-flow, Doppler flow, and spectral analysis. Multiple plastic products sales representative static images were saved for review. FINDINGS: Left common femoral artery: Arterial inflow is preserved with heavy atherosclerotic burden. Vascular supply to the leg is preserved by the profunda femoris which demonstrates brisk upstroke and heavy atherosclerotic burden. No flow is detected in the superficial femoral artery throughout its course. Reconstitution occurs below the knee to the peroneal artery. No flow is detected in the anterior or posterior tibial arteries. There is no significant flow within the dorsalis pedis artery. LEFT: PHYSICIAN EXECUTIVE: 45 cm/sec. Profunda: 42 cm/sec. SFA Proximal: Occluded. SFA Mid: Occluded. SFA Distal: Occluded. Popliteal: Occluded. RONI Mid: Occluded. INVERTEBRATE PALEONTOLOGIST Mid: Occluded. Peroneal Artery Mid: 21 cm/sec. DPA: Occluded. IMPRESSION: Long segment occlusion of the SFA and popliteal artery with single-vessel reconstitution below the knee to the peroneal artery. RADIA
--- NOTE | 2018-01-12 17:33 | Ultrasound Report ---
Reason: pain and discloration Procedure Date: 01/12/2018 Accession Number: [id number] / [id number] Procedure: US - Duplex Ext Veins Left CPT Code: FULL RESULT: EXAM: LEFT LOWER EXTREMITY VENOUS ULTRASOUND EXAM DATE: 01/12/2018 04:39 PM. CLINICAL HISTORY: Pain and discoloration. COMPARISON: None. TECHNIQUE: Real-time sonographic vascular imaging was performed by the home office claims examiner through the lower extremity utilizing both color-flow and Doppler spectral analysis. Multiple apprenticeship training representative static images were saved for review. FINDINGS: Common Femoral Vein (CFV): Normal. CFV-GSV Junction: Normal. Profunda Femoral Vein (PFV): Normal. Femoral Vein (FV) Prox: Normal. Femoral Vein (FV) Mid: Normal. Femoral Vein (FV) Dist: Normal. Popliteal Vein: Normal. Posterior Tibial Veins: Normal. Peroneal Veins: Normal. IMPRESSION: No evidence for deep venous thrombosis. RADIA
[2018-01-12] MEDS ORDERED: oxyCODONE 5 MG TABLET PO STA (17:49)
[2018-01-12 19:00] VITALS: BP 163/87
== END 2018-01-12 20:31 | disposition home or self-care (01) ==
LOC: EDUNIT# → EDBD → ED 11:22
DX: I73.9 Peripheral vascular disease, unspecified (principal); I25.10 Atherosclerotic heart disease of native coronary artery without angina pectoris; Z95.5 Presence of coronary angioplasty implant and graft; Z79.82 Long term (current) use of aspirin; Z98.890 Other specified postprocedural states
CPT/HCPCS: 36415; 80048; 85025; 85610; 85730; 93926; 93971; 99284; A9270

== ENCOUNTER 2018-02-02 15:45 | Inpatient (IN) | payer MEDICARE, OTHER ==
[2018-02-02] MEDS ORDERED: HYDROmorphone 1 MG/ML CARPUJECT IVP STA ×2 (16:01→18:30)
[2018-02-02] MEDS ORDERED: SODIUM CHLORIDE 0.9% 1,000 ML IV ONE ×2 (16:01→17:04)
[2018-02-02] MEDS ORDERED: ONDANSETRON 4 MG/2 ML VIAL IVP STA (16:01)
--- NOTE | 2018-02-02 16:04 | ED Physician Documentation ---
PD HPI ABD PAIN - Stated complaint Stated Complaint: VOMIT/ABD & LT FOOT PX - Chief complaint Chief Complaint: Abd Pain - History obtained from History obtained from: Patient - History of Present Illness Timing - onset: Other (82-year-old woman with vascular disease and hysterectomy and small bowel obstruction presents with 3 days of vomiting and lack of bowel movements with mild central abdominal pain. Actually her left lower extremity hurts more because of inoperable vascular disease and she is scheduled for an amputation of that leg next week. The leg is not any worse than any other day, but she has not been able to keep down anything including liquids now and it feels like prior bowel obstruction.) Review of Systems Ten Systems: 10 systems reviewed and negative Constitutional: denies: Fever, Chills Cardiac: denies: Chest pain / pressure, Palpitations Respiratory: denies: Dyspnea, Cough GI: reports: Abdominal Pain, Nausea, Vomiting, Constipation. denies: Hematemesis PD PAST MEDICAL HISTORY - Past Medical History Cardiovascular: Congestive heart failure, Coronary artery disease, Atrial flutter, Atrial fibrillation, Valve disorder Respiratory: COPD Endocrine/Autoimmune: None GI: GERD : Incontinence HEENT: Other Psych: Panic attacks Musculoskeletal: None Derm: None - Past Surgical History Past Surgical History: Yes /RESEARCH PHYSICIAN: Hysterectomy Cardiovascular: Coronary stent HEENT: Tonsil/Adenoidectomy - Present Medications Home Medications: Ambulatory Orders Medication Instructions Recorded Confirmed Zolpidem [Ambien] 5 mg PO QPM PRN 02/14/16 12/30/17 Atorvastatin Calcium 60 mg PO QPM 02/21/16 12/30/17 Hydrocodone/Acetaminophen 1 tab PO Q6H PRN 02/21/16 12/30/17 [Hydrocodon-Acetaminophen 5-325] Levothyroxine Sodium 50 mcg PO QDAC 02/21/16 12/30/17 Furosemide [Lasix] 40 mg PO DAILY 09/24/16 12/30/17 Ascorbic Acid [Vitamin C] 1,000 mg PO DAILY 11/25/16 12/30/17 Cyanocobalamin (Vitamin B-12) 2,000 mcg PO DAILY 11/25/16 12/30/17 [Vitamin B-12] Digoxin 125 mcg PO DAILY 11/25/16 12/30/17 Multivitamin [Multiple Vitamins] 1 tab PO DAILY 11/25/16 12/30/17 Albuterol Sulfate [Proair Hfa 2 puffs IH Q4HR PRN 12/30/17 12/30/17 Inhaler] Aspirin [Aspirin EC] 81 mg PO DAILY 12/30/17 12/30/17 Calcium Carbonate [Calcium] 600 mg PO DAILY 12/30/17 12/30/17 Cholecalciferol (Vitamin D3) 400 units PO DAILY 12/30/17 12/30/17 [Vitamin D3] Metoprolol Succinate 100 mg PO DAILY 12/30/17 12/30/17 - Allergies Allergies/Adverse Reactions: Allergies Allergy/AdvReac Type Severity Reaction Status Date / Time adhesive AdvReac Rash Verified 02/02/18 16:00 lisinopril AdvReac Respiratory Verified 02/02/18 16:00 - Social History Does the pt smoke?: No Smoking Status: Never smoker Does the pt drink ETOH?: No Does the pt have substance abuse?: No - Family History Family history: reports: Non contributory - Immunizations Immunizations are current?: Yes - POLST Patient has POLST: No POLST Status: DNR PD ED PE NORMAL - Vitals Vital signs reviewed: Yes - General General: Alert and oriented X 3, Other (Retching) - HEENT HEENT: PERRL, EOMI - Neck Neck: Supple, no meningeal sign, No bony TTP - Cardiac Cardiac: Other (Irregularly irregular with 3 out of 6 rapidly decrescendo systolic murmur) - Respiratory Respiratory: No respiratory distress, Clear bilaterally - Abdomen Abdomen: Soft, Other (No bowel tones, no significant tenderness.) - Back Back: No CVA TTP, No spinal TTP - Derm Derm: Normal color, Warm and dry - Extremities Extremities: Other (The left foot is dusky 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 Spoke with Dr. Steward who will consult defers to medicine for admission. Recommends NG tube. Patient refused NG tube, we discussed that this is a risk for complications and slow healing and increases the surgical potential. - Sepsis Event Vital Signs: Vital Signs - 24 hr 02/02/18 15:57 Temperature 36.4 C L Heart Rate 108 H Respiratory 14 Rate Blood Pressure 124/74 O2 Saturation 95 Oxygen O2 Source Room air Departure - Departure Disposition: [facility] DC/Xfer Clinical Impression: Small bowel obstruction Atrial fibrillation Qualifiers: Atrial fibrillation type: chronic Qualified Code(s): I48.2 - Chronic atrial fibrillation Condition: Serious
[2018-02-02] MEDS ORDERED: IOPAMIDOL-300 100 ML VIAL ONE (16:07)
[2018-02-02] MEDS ORDERED: IOPAMIDOL-300 50 ML VIAL ONE (16:07)
[2018-02-02 16:41] LABS: BASOPHILS % (AUTO) 0.3 %; HGB - HEMOGLOBIN 11.5 g/dL (12.0-16.0); LYMPHOCYTES # (AUTO) 0.4 10^3/uL (1.5-3.5); LYMPHOCYTES % (AUTO) 2.9 %; MEAN CORPUSCULAR HGB CONC 35.8 g/dL (32.0-36.0); MEAN CORPUSCULAR VOLUME 89.3 fL (81.0-99.0); MEAN PLATELET VOLUME 7.5 fL (7.9-10.8); MONOCYTES % (AUTO) 7.4 %; NEUTROPHILS # (AUTO) 11.5 10^3/uL (1.5-6.6); NEUTROPHILS % (AUTO) 89.4 %; PLT - PLATELET COUNT 468 10^3/uL (130-450); RED CELL DISTRIBUTION WIDTH 16.3 % (12.0-15.0); WHITE BLOOD COUNT 12.9 x10^3/uL (4.8-10.8)
[2018-02-02 16:48] LABS: INR 1.1 (0.8-1.2); PT - PROTHROMBIN TIME 12.8 secs (9.9-12.6)
[2018-02-02 16:52] LABS: ALBUMIN 3.2 g/dL (3.2-5.5); ALBUMIN/GLOBULIN RATIO 0.8 (1.0-2.2); BILIRUBIN,TOTAL 1.6 mg/dL (0.2-1.0); CALCIUM 9.7 mg/dL (8.5-10.3); CREATININE 2.1 mg/dL (0.4-1.0); TOTAL PROTEIN 7.3 g/dL (6.7-8.2)
[2018-02-02 16:56] LABS: DIGOXIN 1.1 ng/mL
[2018-02-02] MEDS ORDERED: IOPAMIDOL-300 50 ML VIAL PO ONE (18:03)
--- NOTE | 2018-02-02 18:17 | CT Report ---
Reason: abd pain, vomit, SBO, ARF Procedure Date: 02/02/2018 Accession Number: [id number] Procedure: CT - Abdomen/Pelvis W/O CPT Code: FULL RESULT: EXAM: CT ABDOMEN AND PELVIS EXAM DATE: 02/02/2018 05:41 PM. CLINICAL HISTORY: Abd pain, vomit, SBO, ARF. COMPARISONS: ABDOMEN/PELVIS W/O 12/30/2017 7:16 PM. TECHNIQUE: Routine helical CT imaging was performed through the abdomen and pelvis. IV contrast: None. Enteric contrast: Yes. Reconstructions: Coronal and sagittal. In accordance with CT protocol optimization, one or more of the following dose reduction techniques were utilized for this exam: automated exposure control, adjustment of mA and/or KV based on patient size, or use of iterative reconstructive technique. FINDINGS: Lung Bases: Patchy opacities in the right lower lobe. 6 mm subpleural nodule in the lateral right lower lobe (image 14 of series 3). Redemonstrated moderate cardiomegaly. No pericardial effusion. Liver: Small, shrunken appearance of the liver suggestive of cirrhosis. No intrahepatic bile duct dilation. Gallbladder/Bile Ducts: Unremarkable. Spleen: Small appearance of the spleen. Pancreas: Pancreatic atrophy. Parenchymal calcifications suggestive of prior pancreatitis. Adrenal Glands: Normal. Kidneys: No hydronephrosis. Nonobstructing 3 mm stone in the interpolar region of the left kidney. Redemonstrated cortical hypodensities bilaterally, likely cysts. Peritoneal Cavity/Bowel: Marked distention of the stomach with gas and contrast. The distal esophagus is also dilated with contrast. There are multiple dilated and fluid-filled small bowel loops throughout the abdomen, which appear more distended from the prior exam. Small bowel loops measure up to 4.4 cm in diameter. Transition point identified at the terminal ileum (image 53 of series 3). No free intraperitoneal air or free fluid. The visualized appendix is normal. Pelvic Organs: The urinary bladder is decompressed. Vasculature: The abdominal aorta is calcified and tortuous. No evidence of aneurysm. Bones: Osteopenia. Redemonstrated severe levoconvex curvature of the lumbar spine. Moderate to severe multilevel degenerative joint and disk disease. Other: None. IMPRESSION: Small bowel obstruction with transition point identified at the terminal ileum. Distended distal esophagus and stomach with fluid and contrast. This poses an aspiration risk. Nonspecific patchy opacities in the right lower lobe, possible atelectasis or pneumonia. Aspiration not excluded. Small, nodular appearance of the liver suggestive of cirrhosis. RADIA
[2018-02-02] MEDS ORDERED: ONDANSETRON 4 MG/2 ML VIAL IVP PRN (20:14)
[2018-02-02] MEDS ORDERED: PROCHLORPERAZINE 10 MG/2 ML VIAL IVP PRN (20:14)
[2018-02-02] MEDS ORDERED: PROMETHAZINE 25 MG/1 ML VIAL IM PRN (20:14)
[2018-02-02] MEDS ORDERED: FAMOTIDINE 20 MG/50 ML 50 ML IV SCH (21:00)
[2018-02-02] MEDS ORDERED: SODIUM CHLORIDE 0.9% 1,000 ML IV SCH (21:00)
--- NOTE | 2018-02-02 21:25 | HISTORY & PHYSICAL EXAMINATION ---
Chief Complaint - Chief Complaint Chief Complaint: Nausea and vomiting History of Present Illness - Admitted From Admitted From:: Emergency department - History Obtained From Records Reviewed: Yes History obtained from: Patient Exam Limitations: None - History of Present Illness HPI Comment/Other: Patient is an 82-year-old female with a past medical history significant for hypertension, atrial fibrillation not on anticoagulation, history of GI bleed, osteoarthritis, peripheral vascular disease with a gangrenous left foot scheduled for amputation on February 15, 2018, GERD, hyperlipidemia, asthma, anxiety and history of right leg infected hematoma who presented to the emergency department with a chief complaint of nausea and vomiting. The patient was just recently hospitalized at [facility] on 12/30/2017 until 01/07/2018 for a small bowel obstruction. The patient was discharged to [facility] where she states that for the first week or so she did okay but she states that the food was terrible. She states that initially she just did not want to eat because of the taste of the food but the last week she states that she has not been able to tolerate the food due to nausea. She states that over the last few days she has been unable to keep anything down at all. She is also noticed that she has had decreasing bowel movements over the last week and has not had a bowel movement for the last 2-3 days. She states that she does have abdominal discomfort and distention but does not really describe it as pain. She states that she has more pain in her back and excruciating pain in her left foot. Patient denies any headaches, blurred vision, runny nose, sore throat, nasal congestion, difficulty swallowing, fevers, chills, chest pain, shortness of air, orthopnea, PND, increased lower extremity swelling, palpitations, cough, urinary urgency, urinary frequency, dysuria, neck stiffness, recent unintentional weight loss, night sweats, polyuria, polydipsia, hair loss or any focal neurologic deficits. On presentation to the emergency department the patient was afebrile and slight ly tachycardic with a heart rate of 108 otherwise her blood pressure and remainder of the vital signs were within normal limits. The patient did appear to be in some distress that she was nauseated and actively vomiting in the emergency department. The patient was given a dose of Zofran, 1 L of IV fluid and a dose of IV Dilaudid in the emergency department. The patient's pain was mainly in her left foot and not in the abdomen. The patient underwent routine lab work which did reveal a mild leukocytosis of 12.9 and a creatinine of 2.1 which is elevated from a baseline of 0.9. The patient underwent a CT of her abdomen and pelvis which revealed small bowel obstruction with transition point identified at the terminal ileum. There was also distended distal esophagus and stomach with fluid and contrast. NG tube was ordered in the emergency department however the patient refused an NG tube. The patient was admitted for recurrence of a small bowel obstruction and will be treated medically. The general surgeon household appliances salesperson was notified of the patient and stated that he would follow if needed. History - Past Medical History Cardiovascular: reports: Congestive heart failure, Coronary artery disease, Atrial flutter, Atrial fibrillation, Valve disorder Respiratory: reports: COPD Endocrine/Autoimmune: reports: None GI: reports: GERD : reports: Incontinence HEENT: reports: Other Psych: reports: Panic attacks Musculoskeletal: reports: None Derm: reports: None MRSA Hx?: No - Past Surgical History /ROVING HAULER: reports: Hysterectomy Cardiovascular: reports: Coronary stent HEENT: reports: Tonsil/Adenoidectomy - Family & Social History Family History: Mother: , Alzheimer's Disease, Father: , CAD Social History Notes: The patient lives in [place] with her son. The patient is originally from [place]. She moved to [facility] just over 20 years ago with her . The patient's is since and the patient is now . She is very independent, still very involved in the community. The patient denies currently smoking. She quit smoking about 25-30 years ago. She previously smoked about a pack per day for about 30 years. She states that she used to drink 3 glasses of wine every night but has quit drinking about 4 years ago. She denies any illicit drug use. - POLST Patient has POLST: No POLST Status: DNR Meds/Allgy - Home Medications Home Medications: Ambulatory Orders Medication Instructions Recorded Confirmed Zolpidem [Ambien] 5 mg PO QPM PRN 02/14/16 02/02/18 Atorvastatin Calcium 60 mg PO QPM 02/21/16 02/02/18 Hydrocodone/Acetaminophen 1 tab PO Q6H PRN 02/21/16 02/02/18 [Hydrocodon-Acetaminophen 5-325] Levothyroxine Sodium 50 mcg PO QDAC 02/21/16 02/02/18 Furosemide [Lasix] 40 mg PO DAILY 09/24/16 02/02/18 Ascorbic Acid [Vitamin C] 1,000 mg PO DAILY 11/25/16 02/02/18 Cyanocobalamin (Vitamin B-12) 2,000 mcg PO DAILY 11/25/16 02/02/18 [Vitamin B-12] Digoxin 125 mcg PO DAILY 11/25/16 02/02/18 Multivitamin [Multiple Vitamins] 1 tab PO DAILY 11/25/16 02/02/18 Albuterol Sulfate [Proair Hfa 2 puffs IH Q4HR PRN 12/30/17 02/02/18 Inhaler] Aspirin [Aspirin EC] 81 mg PO DAILY 12/30/17 02/02/18 Calcium Carbonate [Calcium] 600 mg PO DAILY 12/30/17 02/02/18 Cholecalciferol (Vitamin D3) 400 units PO DAILY 12/30/17 02/02/18 [Vitamin D3] Metoprolol Succinate 100 mg PO DAILY 12/30/17 02/02/18 - Allergies Allergies/Adverse Reactions: Allergies Allergy/AdvReac Type Severity Reaction Status Date / Time adhesive AdvReac Rash Verified 02/02/18 16:00 lisinopril AdvReac Respiratory Verified 02/02/18 16:00 Review of Systems - Other Findings Other Findings: A comprehensive review of systems was performed the pertinent positives and negatives are stated above in the HPI and the remainder of the review of systems is negative. Prior Level of Functionality: Patient is currently at [facility] and is limited with her ambulation secondary to a gangrenous left foot which requires amputation. She is currently requiring assistance with her activities of daily living. Exam - Vital Signs Reviewed Vital Signs: Yes Vital Signs: Vital Signs x48h Temp Pulse Resp BP Pulse Ox 02/02/18 20:41 90 19 144/67 H 95 02/02/18 19:07 94 16 127/68 96 02/02/18 18:30 98 16 132/72 H 98 02/02/18 17:14 99 16 133/76 H 98 02/02/18 15:57 36.4 C L 108 H 14 124/74 95 - Physical Exam General Appearance: positive: Alert, Mild distress (Nauseated and has pain in her foot) Eyes Bilateral: positive: Normal inspection, PERRL, EOMI, No lid inflammation, Conjunctivae nml, No scleral icterus ENT: positive: ENT inspection nml, Pharynx nml, Dry mucous membranes. negative: Purulent nasal drainage, Pharyngeal erythema, Oral lesions Neck: positive: Nml inspection, Thyroid nml, No JVD, Trachea midline. negative: Lymphadenopathy (R), Lymphadenopathy (L), Carotid bruit, Tracheal deviation Respiratory: positive: Chest non-tender, No respiratory distress, Wheezes (Scattered, mild). negative: Rales, Rhonchi Cardiovascular: positive: No murmur, No gallop, Irregularly irregular Peripheral Pulses: positive: 2+ Abdomen: positive: No organomegaly, Tenderness (Mild periumbilical bilaterally), Abnml bowel sounds (Decreased), Other (Distended lower abdomen, firm). negative: Guarding, Rebound, Hepatomegaly Back: positive: Nml inspection. negative: CVA tenderness (R), CVA tenderness (L) Skin: positive: Dry, Other (Left foot with 3 gangernous toes look bluish black discolored with poor pulse) Extremities: positive: No pedal edema, Other (Left foot with gangernous changes, very painful) Neurologic/Psychiatric: positive: Oriented x3, CN's nml (2-12), Motor nml, Sensation nml, Mood/affect nml Conclusion/Plan - Problem List (1) Small bowel obstruction Conclusion/Plan: Patient presented to the emergency department with nausea, vomiting, abdominal discomfort, abdominal distention and decreased bowel movements. Patient was just hospitalized 1 month ago for small bowel obstruction which resolved with medical treatment. Patient was improving but over the last week has had increasing symptoms. Today in the emergency room patient underwent CT of her abdomen pelvis which did show findings consistent with a small bowel obstruction with transition point identified at the terminal ileum. Patient was admitted f or medical management of small bowel obstruction. Plan: N.p.o. For bowel rest IV fluids IV antiemetics IV narcotics NG tube insertion was recommended to the patient but patient refused Surgical consult Palliative care consult as patient is not sure she wants surgery if it comes to that and is unsure of her desires for medical treatment going forward. (2) Gangrene of left foot Conclusion/Plan: Patient has gangrene of her left foot. Patient's 3 toes on her left foot are completely gangrenous and she has discoloration of the dorsal and plantar aspects of the left foot. The patient has been seen outpatient by surgery and she has a planned amputation of the left foot scheduled for February 15, 2018. Patient continues to have severe pain in that left foot. Patient has history of peripheral vascular disease which is likely the culprit of her gangrenous foot. Plan: IV narcotics for pain control If symptoms continue to worsen we will consider consulting our orthopedic surgeons for their recommendations. (3) Atrial fibrillation Conclusion/Plan: Patient has a history of atrial fibrillation which is chronic. The patient takes metoprolol and digoxin at home for rate control. She is not on any anticoagulation. The patient's rate is well controlled in the emergency department. Plan: Patient will be n.p.o. for bowel rest for her small bowel obstruction Patient will be on IV metoprolol 5 mg every 6 hours as needed to control heart rate Qualifiers: Atrial fibrillation type: chronic Qualified Code(s): I48.2 - Chronic atrial fibrillation (4) BERTRAND (acute kidney injury) Conclusion/Plan: Patient has been having nausea vomiting over the last week and has had very poor oral intake. On presentation the patient appears to be very dry on examination and was found to have a elevated creatinine of 2.1 from a baseline of 0.9. The patient also had an elevated BUN of 42. She appears to have prerenal azotemia likely secondary to her nausea and vomiting. Plan: IV fluids Avoid nephrotoxic agents Monitor creatinine (5) Asthma Conclusion/Plan: Patient has a history of asthma. She does not appear to be in exacerbation but does have some wheezing on examination and did drop her sats slightly in the emergency department and is now on 2 L of oxygen. Plan: Duo nebs as needed Supplemental oxygen as needed Monitor Qualifiers: Asthma severity: mild Asthma persistence: intermittent Asthma compli cation type: unspecified Qualified Code(s): J45.20 - Mild intermittent asthma, uncomplicated (6) GERD (gastroesophageal reflux disease) Conclusion/Plan: The patient has a history of GERD and will be placed on IV Pepcid while she is hospitalized. She appears stable at this time however she does have significant amount of fluid in her stomach and is at risk for aspiration and further exacerbation of GERD. We have suggested that the patient get an NG tube but she refused. Qualifiers: Esophagitis presence: with esophagitis Qualified Code(s): K21.0 - Gastro-e sophageal reflux disease with esophagitis (7) Hyperlipidemia Conclusion/Plan: Patient has a history of hyperlipidemia and is on statin at home. For now mayito ent is n.p.o. for bowel rest and we will hold off on statin until she is able to tolerate p.o. intake. Qualifiers: Hyperlipidemia type: unspecified Qualified Code(s): E78.5 - Hyperlipidemia, unspecified (8) Hypothyroidism Conclusion/Plan: Patient has a history of hypothyroidism and is on Synthroid at home. For now the patient's Synthroid will be held as she is n.p.o. for bowel rest. If need be we can start her on IV Synthroid in the case if patient is here for extended period of time. Qualifiers: Hypothyroidism type: unspecified Qualified Code(s): E03.9 - Hypothyroidism, unspecified - Lab Results Fish Bones: 02/02/18 16:34 02/02/18 16:34 Other Lab Results: Laboratory Results WBC 12.9 x10^3/uL (4.8-10.8) H 02/02/18 16:34 RBC 3.60 10^6/uL (4.20-5.40) L 02/02/18 16:34 Hgb 11.5 g/dL (12.0-16.0) L 02/02/18 16:34 Hct 32.1 % (37.0-47.0) L 02/02/18 16:34 MCV 89.3 fL (81.0-99.0) 02/02/18 16:34 MCH 32.0 pg (27.0-31.0) H 02/02/18 16:34 MCHC 35.8 g/dL (32.0-36.0) 02/02/18 16:34 RDW 16.3 % (12.0-15.0) H 02/02/18 16:34 Plt Count 468 10^3/uL (130-450) H 02/02/18 16:34 MPV 7.5 fL (7.9-10.8) L 02/02/18 16:34 Neut # (Auto) 11.5 10^3/uL (1.5-6.6) H 02/02/18 16:34 Lymph # (Auto) 0.4 10^3/uL (1.5-3.5) L 02/02/18 16:34 Davie # (Auto) 1.0 10^3/uL (0.0-1.0) 02/02/18 16:34 Eos # (Auto) 0.0 10^3/uL (0.0-0.7) 02/02/18 16:34 Baso # (Auto) 0.0 10^3/uL (0.0-0.1) 02/02/18 16:34 Absolute Nucleated RBC 0.00 x10^3/uL 02/02/18 16:34 Nucleated RBC % 0.0 /100WBC 02/02/18 16:34 PT 12.8 secs (9.9-12.6) H 02/02/18 16:34 INR 1.1 (0.8-1.2) 02/02/18 16:34 Sodium 141 mmol/L (135-145) 02/02/18 16:34 Potassium 4.2 mmol/L (3.5-5.0) 02/02/18 16:34 Chloride 92 mmol/L (101-111) L 02/02/18 16:34 Carbon Dioxide 33 mmol/L (21-32) H 02/02/18 16:34 Anion Gap 16.0 (6-13) H 02/02/18 16:34 BUN 42 mg/dL (6-20) H 02/02/18 16:34 Creatinine 2.1 mg/dL (0.4-1.0) H 02/02/18 16:34 Estimated GFR (MDRD) 23 (>89) L 02/02/18 16:34 Glucose 142 mg/dL (70-100) H 02/02/18 16:34 Calcium 9.7 mg/dL (8.5-10.3) 02/02/18 16:34 Total Bilirubin 1.6 mg/dL (0.2-1.0) H 02/02/18 16:34 AST 23 IU/L (10-42) 02/02/18 16:34 ALT 15 IU/L (10-60) 02/02/18 16:34 Alkaline Phosphatase 107 IU/L (42-121) 02/02/18 16:34 Total Protein 7.3 g/dL (6.7-8.2) 02/02/18 16:34 Albumin 3.2 g/dL (3.2-5.5) 02/02/18 16:34 Globulin 4.1 g/dL (2.1-4.2) 02/02/18 16:34 Albumin/Globulin Ratio 0.8 (1.0-2.2) L 02/02/18 16:34 Lipase 19 U/L (22-51) L 02/02/18 16:34 Last Dose Date Not Reportable 02/02/18 16:34 Last Dose Time Not Reportable 02/02/18 16:34 Digoxin 1.1 ng/mL 02/02/18 16:34 - Diagnostic Imaging Results Diagnostic Imaging Results: positive: Final report reviewed Diagnostic Imaging Results Comments: Laboratory Results WBC 12.9 x10^3/uL (4.8-10.8) H 02/02/18 16:34 RBC 3.60 10^6/uL (4.20-5.40) L 02/02/18 16:34 Hgb 11.5 g/dL (12.0-16.0) L 02/02/18 16:34 Hct 32.1 % (37.0-47.0) L 02/02/18 16:34 MCV 89.3 fL (81.0-99.0) 02/02/18 16:34 MCH 32.0 pg (27.0-31.0) H 02/02/18 16:34 MCHC 35.8 g/dL (32.0-36.0) 02/02/18 16:34 RDW 16.3 % (12.0-15.0) H 02/02/18 16:34 Plt Count 468 10^3/uL (130-450) H 02/02/18 16:34 MPV 7.5 fL (7.9-10.8) L 02/02/18 16:34 Neut # (Auto) 11.5 10^3/uL (1.5-6.6) H 02/02/18 16:34 Lymph # (Auto) 0.4 10^3/uL (1.5-3.5) L 02/02/18 16:34 Davie # (Auto) 1.0 10^3/uL (0.0-1.0) 02/02/18 16:34 Eos # (Auto) 0.0 10^3/uL (0.0-0.7) 02/02/18 16:34 Baso # (Auto) 0.0 10^3/uL (0.0-0.1) 02/02/18 16:34 Absolute Nucleated RBC 0.00 x10^3/uL 02/02/18 16:34 Nucleated RBC % 0.0 /100WBC 02/02/18 16:34 PT 12.8 secs (9.9-12.6) H 02/02/18 16:34 INR 1.1 (0.8-1.2) 02/02/18 16:34 Sodium 141 mmol/L (135-145) 02/02/18 16:34 Potassium 4.2 mmol/L (3.5-5.0) 02/02/18 16:34 Chloride 92 mmol/L (101-111) L 02/02/18 16:34 Carbon Dioxide 33 mmol/L (21-32) H 02/02/18 16:34 Anion Gap 16.0 (6-13) H 02/02/18 16:34 BUN 42 mg/dL (6-20) H 02/02/18 16:34 Creatinine 2.1 mg/dL (0.4-1.0) H 02/02/18 16:34 Estimated GFR (MDRD) 23 (>89) L 02/02/18 16:34 Glucose 142 mg/dL (70-100) H 02/02/18 16:34 Calcium 9.7 mg/dL (8.5-10.3) 02/02/18 16:34 Total Bilirubin 1.6 mg/dL (0.2-1.0) H 02/02/18 16:34 AST 23 IU/L (10-42) 02/02/18 16:34 ALT 15 IU/L (10-60) 02/02/18 16:34 Alkaline Phosphatase 107 IU/L (42-121) 02/02/18 16:34 Total Protein 7.3 g/dL (6.7-8.2) 02/02/18 16:34 Albumin 3.2 g/dL (3.2-5.5) 02/02/18 16:34 Globulin 4.1 g/dL (2.1-4.2) 02/02/18 16:34 Albumin/Globulin Ratio 0.8 (1.0-2.2) L 02/02/18 16:34 Lipase 19 U/L (22-51) L 02/02/18 16:34 Last Dose Date Not Reportable 02/02/18 16:34 Last Dose Time Not Reportable 02/02/18 16:34 Digoxin 1.1 ng/mL 02/02/18 16:34 CT abdomen/pelvis Impression: Small bowel obstruction with transition point identified at the terminal ileum. Distended distal esophagus and stomach with fluid and contrast. This poses an aspiration risk. Nonspecific patchy opacities in the right lower lobe, possible atelectasis or pneumonia. Aspiration not excluded. Small, nodular appearance of the liver suggestive of cirrhosis. Core Measures - Anticipated LOS I expect patient to be DC'd or transferred within 96 hours.: Yes - DVT/VTE - Prophylaxis VTE/DVT Prophylaxis med ordered at admit?: Yes
[2018-02-02] MEDS ORDERED: LORazepam 2 MG/ML VIAL IVP STA (21:26)
[2018-02-02] MEDS ORDERED: ZOLPIDEM 5 MG TABLET PO PRN (21:55)
[2018-02-02] MEDS ORDERED: METOPROLOL 5 MG/5 ML VIAL IVP PRN (22:38)
--- NOTE | 2018-02-02 23:15 | XRAY Report ---
Reason: NG tube placement Procedure Date: 02/02/2018 Accession Number: [id number] / [id number] Procedure: XR - Abdomen 1 View X-Ray CPT Code: 99453 FULL RESULT: EXAM: ABDOMEN RADIOGRAPHY EXAM DATE: 02/02/2018 11:08 PM. CLINICAL HISTORY: NG tube placement. COMPARISON: ABDOMEN ACUTE 01/02/2018 8:08 AM. TECHNIQUE: 1 view. FINDINGS: Bowel Gas Pattern: Gaseous distention of the colon with moderate stool. There may be some gas-filled small bowel loops. Nonspecific gas pattern. Other: Scoliosis and degenerative changes in the spine. Vascular calcifications. Enteric tube tip in the proximal stomach. IMPRESSION: 1. Nonspecific gas pattern possibly representing ileus. 2. Enteric tube in the proximal stomach. RADIA
[2018-02-02] MEDS: HYDROmorphone 1 MG/ML CARPUJECT IVP PRN (23:44)
[2018-02-02] MEDS: SODIUM CHLORIDE FLUSH 0.9% 10 ML SYRINGE IVP SCH (23:55)
[2018-02-03] MEDS: SODIUM CHLORIDE FLUSH 0.9% 10 ML SYRINGE IVP PRN (05:34)
[2018-02-03 05:44] LABS: BASOPHILS % (AUTO) 0.2 %; EOSINOPHILS % (AUTO) 0.1 %; HGB - HEMOGLOBIN 10.3 g/dL (12.0-16.0); LYMPHOCYTES # (AUTO) 0.5 10^3/uL (1.5-3.5); LYMPHOCYTES % (AUTO) 9.6 %; MEAN CORPUSCULAR HEMOGLOBIN 32.6 pg (27.0-31.0); MEAN CORPUSCULAR HGB CONC 35.7 g/dL (32.0-36.0); MEAN CORPUSCULAR VOLUME 91.3 fL (81.0-99.0); MEAN PLATELET VOLUME 7.4 fL (7.9-10.8); MONOCYTES # (AUTO) 0.9 10^3/uL (0.0-1.0); MONOCYTES % (AUTO) 16.5 %; NEUTROPHILS # (AUTO) 4.2 10^3/uL (1.5-6.6); NEUTROPHILS % (AUTO) 73.6 %; PLT - PLATELET COUNT 399 10^3/uL (130-450); RED BLOOD COUNT 3.15 10^6/uL (4.20-5.40); RED CELL DISTRIBUTION WIDTH 16.4 % (12.0-15.0); WHITE BLOOD COUNT 5.7 x10^3/uL (4.8-10.8)
[2018-02-03 05:46] LABS: INR 1.1 (0.8-1.2); PT - PROTHROMBIN TIME 12.5 secs (9.9-12.6)
[2018-02-03 05:54] LABS: ALBUMIN 2.7 g/dL (3.2-5.5); ALBUMIN/GLOBULIN RATIO 0.8 (1.0-2.2); BILIRUBIN,TOTAL 1.2 mg/dL (0.2-1.0); CREATININE 2.2 mg/dL (0.4-1.0); MAGNESIUM 2.9 mg/dL (1.7-2.8); PHOSPHORUS 5.2 mg/dL (2.5-4.6); TOTAL PROTEIN 5.9 g/dL (6.7-8.2)
[2018-02-03] MEDS: DEXTROSE 5%-0.9% NACL 1,000 ML IV SCH ×3 (06:17→22:01)
[2018-02-03] MEDS: HYDROmorphone 1 MG/ML CARPUJECT IVP PRN ×4 (07:38→22:27)
[2018-02-03] MEDS ORDERED: ENOXAPARIN 40 MG/0.4 ML SYRINGE SUBQ SCH (09:00)
[2018-02-03] MEDS ORDERED: POLYETHYLENE GLYCOL 3350 17 GM PACKET PO SCH (09:00)
[2018-02-03] MEDS ORDERED: PHENOL THROAT SPRAY 177 ML MM PRN (09:15)
[2018-02-03] MEDS: ENOXAPARIN 30 MG/0.3 ML SYRINGE SUBQ SCH (10:09)
[2018-02-03] MEDS: SODIUM CHLORIDE FLUSH 0.9% 10 ML SYRINGE IVP SCH ×3 (10:15→23:37)
--- NOTE | 2018-02-03 11:27 | XRAY Report ---
Reason: SBO Procedure Date: 02/03/2018 Accession Number: [id number] / [id number] Procedure: XR - Abdomen 1 View X-Ray CPT Code: 12919 FULL RESULT: EXAM: ABDOMEN RADIOGRAPHY EXAM DATE: 02/03/2018 10:46 AM. CLINICAL HISTORY: Small bowel obstruction. COMPARISON: ABDOMEN 1 VIEW 02/02/2018 10:55 PM. TECHNIQUE: 1 view. FINDINGS: Bowel Gas Pattern: Dilated loops of small bowel now measure up to 4.6 cm. Interval decrease in prominence in the large bowel gas, though gas is still seen in the large bowel. Subjectively, gaseous distention of small bowel is decreased. Air-fluid levels as well as extra intestinal gas cannot be evaluated on the single supine view. Other: An enteric tube is seen coursing with its distal tip projecting in the left upper quadrant and the side hole approximately at the level of the gastroesophageal junction. Consider advancing the tube. IMPRESSION: Persistent obstructive bowel gas pattern. RADIA
[2018-02-03] MEDS: ACETAMINOPHEN 1,000 MG/100 ML 100 ML IV SCH ×2 (15:11→20:55)
--- NOTE | 2018-02-03 15:16 | PROVIDER PROGRESS NOTE ---
Assessment/Plan - Problem List (1) Small bowel obstruction Assessment/Plan: She has small improvement with bowel sounds present. Continue bowel rest, decompression with ng tube, iv hydration, prn antemetics. If no flatulence or BM by tomorrow, will get a gastrograffin study, since the contrast may help open her bowel obstruction. (2) Gangrene of left foot Assessment/Plan: Pt has known PVD and has been followed by Vascular Surgery. Pain control still inadequate. Will add scheduled APAP for pain control. Continue iv narcotics prn for severe pain, watching for obtundation and desaturation. Pt did agree to see Palliative Care (Marla Perera, PETER) today since she expressed hopelessness regarding her PVD, her pain and need for amputation, which is tentatively scheduled for Feb 15 at [place]. Continue any home meds for vascular disease, parenterally. (3) COPD (chronic obstructive pulmonary disease) Assessment/Plan: No exacebation during this admission. Continue inhaler orders (4) Severe protein-calorie malnutrition Assessment/Plan: The patient has lost weight since just her recent admission 2 weeks ago. Will give supplements, when tolerating po meds and diet. (5) BERTRAND (acute kidney injury) Assessment/Plan: This is likely to be ATN from volume depletion in addition to possible max- vascular disease. Continue iv hydration, watching for acute R sided volume overload. Monitor BMP daily. (6) Chronic a-fib Assessment/Plan: HR is controlled. Po meds for rate control were changed to iv B-kate. - Current Meds Current Meds: Current Medications Generic Name Dose Route Start Last Admin Trade Name Freq PRN Reason Stop Dose Admin Enoxaparin Sodium 30 mg 02/03/18 09:00 02/03/18 10:09 Lovenox SUBQ 30 mg DAILY HUONG Administration Hydromorphone HCl 0.5 mg 02/02/18 20:14 02/03/18 10:09 Dilaudid Inj Carp IVP 0.5 mg Q2HR PRN Administration Pain 8 to 10 Dextrose/Sodium Chloride 1,000 mls @ 125 mls/hr 02/03/18 06:00 02/03/18 14:10 D5ns IV 125 mls/hr .Q8H HUONG Administration Acetaminophen 100 mls @ 400 mls/hr 02/03/18 15:00 02/03/18 15:11 Ofirmev IV 400 mls/hr Q6H HUONG Administration Ondansetron HCl 4 mg 02/02/18 20:14 02/02/18 23:47 Zofran Inj IVP 4 mg Q6HR PRN Administration Nausea / Vomiting Sodium Chloride 10 ml 02/02/18 20:14 02/03/18 05:34 Normal Saline Flush 0.9% IVP 10 ml PRN PRN Administration NEEDED PER PROVIDER ORDERS Sodium Chloride 10 ml 02/03/18 01:00 02/03/18 10:15 Normal Saline Flush 0.9% IVP 10 ml 0100,0900,1700 HUONG Administration - Lab Result Fish Bone Diagrams: 02/03/18 05:30 02/03/18 05:30 Subjective - Subjective Patient Reports: Feeling Better, Other (Still nauseated but no abd pain, and throat hurts from having ng tube in place.) Nursing Reports: Other (No flatus or BM today. L toes hurt more than abdomen, especially in dependant position.) Objective Vital Signs: Vital Signs - 24 hr 02/02/18 02/02/18 02/02/18 15:57 17:14 18:30 Temperature 36.4 C L Heart Rate 108 H 99 98 Heart Rate [ Brachial] Respiratory 14 16 16 Rate Blood Pressure 124/74 133/76 H 132/72 H Blood Pressure [Right Brachial artery] O2 Saturation 95 98 98 02/02/18 02/02/18 02/02/18 19:07 20:41 20:55 Temperature Heart Rate 94 90 78 Heart Rate [ Brachial] Respiratory 16 19 16 Rate Blood Pressure 127/68 144/67 H Blood Pressure [Right Brachial artery] O2 Saturation 96 95 02/02/18 02/02/18 02/03/18 20:59 23:35 05:45 Temperature 36.6 C 37.0 C 36.4 C L Heart Rate Heart Rate [ 78 99 93 Brachial] Respiratory 16 16 16 Rate Blood Pressure Blood Pressure 129/78 136/69 H 109/52 L [Right Brachial artery] O2 Saturation 95 95 93 02/03/18 02/03/18 02/03/18 07:55 09:00 13:43 Temperature 36.4 C L 36.7 C Heart Rate 82 Heart Rate [ 86 87 Brachial] Respiratory 18 16 18 Rate Blood Pressure Blood Pressure 119/55 L 122/61 [Right Brachial artery] O2 Saturation 94 100 Oxygen O2 Source Room air I&O (Last 24 Hrs): Intake and Output Totals x24h 02/01/18 02/02/18 02/03/18 23:59 23:59 23:59 Intake Total 2051.667 1754.750 Output Total 700 210 Balance 0064.787 5711.750 General: Alert, Oriented x3 HEENT: Mucous membr. moist/pink, Other (ng tube in place) Neck: Supple, Other ((+) JVD) Neuro: Non Focal Cardiovascular: No murmurs Respiratory: No respiratory distress, Breath sounds nml Abdomen: Soft, Other (Diminished but present bowel sounds, no tenferness, no guarding or rebound.) Extremities: Other (No edema, R foot is ccol but pink, L foot is black from (all) toes to 1st metatarsal, is tender.) - Results Results: Laboratory Results WBC 5.7 x10^3/uL (4.8-10.8) 02/03/18 05:30 RBC 3.15 10^6/uL (4.20-5.40) L 02/03/18 05:30 Hgb 10.3 g/dL (12.0-16.0) L 02/03/18 05:30 Hct 28.7 % (37.0-47.0) L 02/03/18 05:30 MCV 91.3 fL (81.0-99.0) 02/03/18 05:30 MCH 32.6 pg (27.0-31.0) H 02/03/18 05:30 MCHC 35.7 g/dL (32.0-36.0) 02/03/18 05:30 RDW 16.4 % (12.0-15.0) H 02/03/18 05:30 Plt Count 399 10^3/uL (130-450) 02/03/18 05:30 MPV 7.4 fL (7.9-10.8) L 02/03/18 05:30 Neut # (Auto) 4.2 10^3/uL (1.5-6.6) 02/03/18 05:30 Lymph # (Auto) 0.5 10^3/uL (1.5-3.5) L 02/03/18 05:30 [place] # (Auto) 0.9 10^3/uL (0.0-1.0) 02/03/18 05:30 Eos # (Auto) 0.0 10^3/uL (0.0-0.7) 02/03/18 05:30 Baso # (Auto) 0.0 10^3/uL (0.0-0.1) 02/03/18 05:30 Absolute Nucleated RBC 0.00 x10^3/uL 02/03/18 05:30 Nucleated RBC % 0.1 /100WBC 02/03/18 05:30 PT 12.5 secs (9.9-12.6) 02/03/18 05:30 INR 1.1 (0.8-1.2) 02/03/18 05:30 Sodium 141 mmol/L (135-145) 02/03/18 05:30 Potassium 4.1 mmol/L (3.5-5.0) 02/03/18 05:30 Chloride 99 mmol/L (101-111) L 02/03/18 05:30 Carbon Dioxide 29 mmol/L (21-32) 02/03/18 05:30 Anion Gap 13.0 (6-13) 02/03/18 05:30 BUN 45 mg/dL (6-20) H 02/03/18 05:30 Creatinine 2.2 mg/dL (0.4-1.0) H 02/03/18 05:30 Estimated GFR (MDRD) 21 (>89) L 02/03/18 05:30 Glucose 106 mg/dL (70-100) H 02/03/18 05:30 Lactic Acid 1.1 mmol/L (0.5-2.2) 02/03/18 05:30 Calcium 8.0 mg/dL (8.5-10.3) L 02/03/18 05:30 Phosphorus 5.2 mg/dL (2.5-4.6) H 02/03/18 05:30 Magnesium 2.9 mg/dL (1.7-2.8) H 02/03/18 05:30 Total Bilirubin 1.2 mg/dL (0.2-1.0) H 02/03/18 05:30 AST 19 IU/L (10-42) 02/03/18 05:30 ALT 13 IU/L (10-60) 02/03/18 05:30 Alkaline Phosphatase 80 IU/L (42-121) 02/03/18 05:30 Total Protein 5.9 g/dL (6.7-8.2) L 02/03/18 05:30 Albumin 2.7 g/dL (3.2-5.5) L 02/03/18 05:30 Globulin 3.2 g/dL (2.1-4.2) 02/03/18 05:30 Albumin/Globulin Ratio 0.8 (1.0-2.2) L 02/03/18 05:30 Lipase 19 U/L (22-51) L 02/02/18 16:34 Last Dose Date Not Reportable 02/02/18 16:34 Last Dose Time Not Reportable 02/02/18 16:34 Digoxin 1.1 ng/mL 02/02/18 16:34 - Procedures Procedures: Procedures INSPECTION OF UPPER INTESTINAL TRACT, ENDO (02/22/16) PACKED CELL TRANSFUSION (04/13/14) ABX Reporting Has patient been on IV antibiotics over the past 48 hours?: No
[2018-02-03] MEDS ORDERED: DIGOXIN 500 MCG/2 ML AMP IVP SCH (16:00)
--- NOTE | 2018-02-03 16:38 | CONSULTATION NOTE ---
Palliative Care Consultation - Referral Referring Provider: Yoselyn Pinto MD Time of Visit: [phone] Referral setting: Hospitalized patient Referral Reason: Goals of Care/SBO/Gangrene Left foot - Information Sources Records reviewed: RN notes reviewed, Previous records reviewed History/Review of Systems obtained from: Patient Exam limitations: Clinical condition (patient feeling poorly feeling slightly confused) - History of Present Illness Brief History of Present Illness: This is a 82-year-old woman who has significant peripheral vascular disease, she had underwent an attempted endovascular revascularization on 12/08/2017. Patient has had prior stents, so patient's left lower extremity continue to worsen, she was seen in the ED 01/12 from [facility] with a dusky left lower extremity with no pedal pulse and increasing pain at that point was to follow up with vascular surgeon outpatient. Patient saw Dr. Bee on 01/29, his note reflects her aversion to open revasculartization, and he did not think she had good options for limb salvage. She was given the options [id number] amputation in the near future to alleviate pain and prevent potentially life-threatening infection, given the option to continue to the leg had infection sets in a perform amputation at that time, but this would may result in life-threatening infection and sepsis with bacteremia, and lastly changing course and looking at comfort care. Patient at this point in time at the visit was interested in the amputation, but wanted some time to get her things in order. The deterioration of her LLE has continued to progress both with increased tenderness, escalating severe pain, discoloration and progression of the gangrene from her left toes now into her foot. Patient is actually came from [facility], she had transitioned there after a stay from 12/30-01/07 For a small bowel obstruction which did eventually resolve, but had complications of aspiration pneumonia. She had continued to be a failure to thrive there, with increasing pain, weight loss, and ongoing anxiety and depression. She presented again to [facility] with nausea and actively vomiting, where she underwent a CT scan of her abdomen pelvis revealed a small bowel obstruction with identified point at the terminal ileum. She does have an NG tube which is causing her much distress, as she has responded poorly to the opioids with increased confusion.She is showing some signs of resolution, but currently still has NG to suction. Palliative care is been asked to meet with the patient to establish goals of care, patient did express possibility of not moving forward with any surgery and concerns about her current quality of life Medical/Surgical History - Past Medical History Cardiovascular: reports: Congestive heart failure, Coronary artery disease, Peripheral Vascular Disease, Deep vein thrombosis, Angina, Atrial flutter, Atrial fibrillation, Arrhythmia, Valve disorder, Other (claudication) Respiratory: reports: COPD Neuro: None Endocrine/Autoimmune: reports: None GI: reports: GERD, GI bleed (hx) : reports: Incontinence HEENT: reports: Other Psych: reports: Panic attacks Musculoskeletal: reports: Osteoarthritis Derm: reports: None MRSA Hx?: No - Past Surgical History General: reports: Other (left groin hernia repair) /DIAGNOSTIC TECH: reports: Hysterectomy Cardiovascular: reports: Coronary stent, Cardiac catheterization (2007), Other (antioplasty periperal stenting L SFA 04/2008; right 07/2008) HEENT: reports: Tonsil/Adenoidectomy, Other (vocal cord strip) - Substance History Use: Uses substance without health or social issues: Alcohol (hx of alcohol abuse; Hx smoking) Social History - Living Situation Living arrangement: At home, retirement (She is currently at [facility], and very unhappy, is hoping after surgery in [place] to find better fit. She does recognize all nursing homes have similar issues;) Living Situation: With family (son lives with patient; reports dependent on each other concern with son coping hx of substance issues; 20 years ago of suicide; patient with many friends and support in community; likes [employer]; has worked at the [employer] in past;) Family History - Family History Family History: Mother: , Alzheimer's Disease, Father: , CAD Medications/Allergies - Medications Active Medication List: Active Medications Albuterol/Ipratropium (Duoneb) 3 ml INH Q4HR PRN PRN Reason: Wheezing Digoxin (Lanoxin Inj) 125 mcg IVP SUMOWEFR [facility] Last Admin: 02/03/18 16:26 Dose: 125 mcg Enoxaparin Sodium (Lovenox) 30 mg SUBQ DAILY [facility] Last Admin: 02/03/18 10:09 Dose: 30 mg Hydromorphone HCl (Dilaudid Inj Carp) 0.5 mg IVP Q2HR PRN PRN Reason: Pain 8 to 10 Last Admin: 02/03/18 10:09 Dose: 0.5 mg Dextrose/Sodium Chloride (D5ns) 1,000 mls @ 125 mls/hr IV .Q8H [facility] Last Admin: 02/03/18 14:10 Dose: 125 mls/hr Famotidine (Pepcid 20 Mg/50 Ml) 50 mls @ 100 mls/hr IV HS [facility] Acetaminophen (Ofirmev) 100 mls @ 400 mls/hr IV Q6H [facility] Last Infusion: 02/03/18 15:26 Dose: Infused Levothyroxine Sodium (Synthroid Inj) 25 mcg IVP QDAC [facility] Metoprolol Tartrate (Lopressor Inj) 5 mg IVP Q6H PRN PRN Reason: Hypertensive Emergency Ondansetron HCl (Zofran Inj) 4 mg IVP Q6HR PRN PRN Reason: Nausea / Vomiting Last Admin: 02/02/18 23:47 Dose: 4 mg Phenol/Menthol (Chloraseptic) 2 sprays MM Q2HR PRN PRN Reason: Throat Pain Prochlorperazine Edisylate (Compazine Inj) 10 mg IVP Q6HR PRN PRN Reason: Nausea / Vomiting Promethazine HCl (Phenergan Inj) 25 mg IM Q6HR PRN PRN Reason: Nausea / Vomiting Sodium Chloride (Normal Saline Flush 0.9%) 10 ml IVP PRN PRN PRN Reason: NEEDED PER PROVIDER ORDERS Last Admin: 02/03/18 05:34 Dose: 10 ml Sodium Chloride (Normal Saline Flush 0.9%) 10 ml IVP 0100,0900,1700 [facility] Last Admin: 02/03/18 16:27 Dose: 10 ml Zolpidem [Ambien] 5 mg PO QPM PRN 02/14/16 Atorvastatin Calcium 60 mg PO QPM 02/21/16 Hydrocodone/Acetaminophen [Hydrocodon-Acetaminophen 5-325] 1 tab PO Q6H PRN 02/21/16 Levothyroxine Sodium 50 mcg PO QDAC 02/21/16 Furosemide [Lasix] 40 mg PO DAILY 09/24/16 Ascorbic Acid [Vitamin C] 1,000 mg PO DAILY 11/25/16 Cyanocobalamin (Vitamin B-12) [Vitamin B-12] 2,000 mcg PO DAILY 11/25/16 Digoxin 125 mcg PO DAILY 11/25/16 Multivitamin [Multiple Vitamins] 1 tab PO DAILY 11/25/16 Albuterol Sulfate [Proair Hfa Inhaler] 2 puffs IH Q4HR PRN 12/30/17 Aspirin [Aspirin EC] 81 mg PO DAILY 12/30/17 Calcium Carbonate [Calcium] 600 mg PO DAILY 12/30/17 Cholecalciferol (Vitamin D3) [Vitamin D3] 400 units PO DAILY 12/30/17 Metoprolol Succinate 100 mg PO DAILY 12/30/17 - Allergies Allergies/Adverse Reactions: Allergies Allergy/AdvReac Type Severity Reaction Status Date / Time adhesive AdvReac Rash Verified 02/02/18 16:00 lisinopril AdvReac Respiratory Verified 02/02/18 16:00 Review of Systems - Constitutional Constitutional: reports: Fatigue, Poor appetite, Weight loss (reports 10 pound weight loss since has been at [facility]; relates some to anorexia and some to food). denies: Fever - Ears, Nose & Throat Ears, Nose & Throat: reports: Hearing loss, Sore throat (related to NG tube; very much "hates it" causing a lot of discomfort), Dry mouth - Cardiovascular Cardiovascular: reports: Decr. exercise tolerance - Respiratory Respiratory: reports: Cough, SOB with exertion - Gastrointestinal Gastrointestinal: reports: Diarrhea (reports episodes of "stinky diarrhea" prior to admit), Vomiting (patient reports "coffee brown emesis" though no mention in notes; does admit to confusion; previous admit did have GI bleed), Poor appetite. denies: Abdominal pain - Genitourinary Genitourinary: reports: Incontinence - Musculoskeletal Musculoskeletal: reports: Muscle pain, Muscle aches, Stiffness, Muscle weakness - Integumentary Integumentary: reports: Other (reports several "wounds" acquired from trauma with transfers at [facility]; thin skin bruises easily;) - Neurological Neurological: reports: General weakness, Memory problems (unclear how cognitive deficits are at baseline; able to participate in conversation but repetitive and admits STM issues about health) - Psychiatric Psychiatric: reports: Anxiety - Endocrine Endocrine: reports: Intolerance to cold - Hematologic/Lymphatic Hematologic/Lymphatic: reports: Anemia - All Other Systems All Other Systems: reports: Reviewed and negative Physical Exam - Vital Signs Vital Signs: Vital Signs x48h Temp Pulse Pulse Resp BP Pulse Ox 02/03/18 16:26 88 02/03/18 16:19 36.5 C 88 16 112/57 L 100 02/03/18 13:43 36.7 C 87 18 122/61 100 02/03/18 09:00 82 16 - Physical Exam General Appearance: positive: Mild distress Eyes Bilateral: positive: Normal inspection ENT: positive: Other (painful swallowing demonstrated with pain behaviors) Neck: positive: Trachea midline Cardiovascular: positive: Regular rate & rhythm Respiratory: positive: Diminished throughout Abdomen: positive: Non-tender, Soft, Abnml bowel sounds Skin: positive: Other (Left foot darkened black toes into foot area; several dried crusted wounds LE; thin skin overall with bruising; reports has continued to worsen unable to compare but pain has increased dramatically) Extremities: positive: No pedal edema Neurologic/Psychiatric: positive: Disoriented to time, Weakness, Depressed mood/affect, Flat affect Palliative Care - POLST POLST Status: DNR Pain: Pain worsening, Location Tiredness/Fatigue: Severe (7-10) Drowsiness/Sedation: Severe (7-10) Depression: Severe (7-10) Anxiety: Severe (7-10) Anorexia: Moderate (4-6), Weight loss Feelings of wellbeing/Perceived Quality of Life: Poor, Worsening Performance Status: With increasing left lower extremity pain, is mostly been wheelchair bound with pivot transfers only with contact assist. Patient has been declining functionally as related to pain also with generalized weakness, deconditioning, and weight loss. - Palliative Care Discussion: Met with patient, this is a very long and lengthy discussion and trying to tease out her goals. In the context of her decision making, she reports that as a family they never make decisions, are often in denial, and until crisis pushes them to a point. She is very conflicted, as far as her current decisions before her. Trying to tease out if she still wanted to pursue surgery regarding her amputation, she is very much distressed at the thought of the amputation, and concerned regarding the outcome. We did explore in the context if she chose not to have the surgery, we would be looking at transitioning to end-of-life, and support through that process. She reports she is not "done". That she does not feel like she wants to , though she does recognize that may be a pending possibility with her current condition. She is worried about her son Avery, reports he is quite dependent on her, that his life is quite fragile and fraught with complex issues. She is worried what is going to happen to him, if she does . She feels like she still has not finished all her legal paperwork, has not completed her will, but is unable to expand on this. She is wondering in the context now for her second recurrent bowel obstruction, if this is what she has had of her, if it makes sense to have her amputation done. About two thirds away through the conversation, she wanted to call her son Avery, she is slightly to moderately confused, at this point, we did review in the context of current time. We did not need to make a decision at the end of our conversation. I did ask her though what she would like me to summarize when we were finished with our conversation, she is quite distressed by her current situation, with the NG tube, and feeling somewhat confused. She does feel at this point, she is planning to move forward with the surgery that she remains quite ambivalent in our conversation. I did meet with Avery separately, he is obviously under duress. He feels his mother gets worse with the narcotics, more delusional, and out to lunch. I reviewed that she was just feeling quite anxious, that there was no immediate decision to make, but given her current difficulty does he feel like he could make her decisions if needed.He was a little distressed when we reviewed possibly moving her surgery up secondary to her pain, and deteriorating status. He had made arrangements for her 2 younger sisters from [place] to come near the time of the surgery, I did show him her foot though given we have nothing to compare it to, and he did say it looks dramatically worse as well as patient's escalating severe pain and discomfort. He did give permission, if it was felt to be medically necessary, to move forward with a transfer. When asked about what was said at the appointment, he echoed his mother's description of their family having difficulty making decisions, that they end up doing it in crisis, and they just plow through to make it happen. Though he does know she is quite upset about losing her foot. Results - Lab Results Lab results reviewed: Yes Fish Bones: 02/03/18 05:30 02/03/18 05:30 Lab and Imaging Results: Lab Results x24hrs 02/03/18 02/03/18 02/03/18 Range/Units 05:30 05:30 05:30 WBC (4.8-10.8) x10^3/uL RBC (4.20-5.40) 10^6/uL Hgb (12.0-16.0) g/dL Hct (37.0-47.0) % MCV (81.0-99.0) fL MCH (27.0-31.0) pg MCHC (32.0-36.0) g/dL RDW (12.0-15.0) % Plt Count (130-450) 10^3/uL MPV (7.9-10.8) fL Neut # (Auto) (1.5-6.6) 10^3/uL Lymph # (Auto) (1.5-3.5) 10^3/uL Acadia # (Auto) (0.0-1.0) 10^3/uL Eos # (Auto) (0.0-0.7) 10^3/uL Baso # (Auto) (0.0-0.1) 10^3/uL Absolute Nucleated RBC x10^3/uL Nucleated RBC % /100WBC PT 12.5 (9.9-12.6) secs INR 1.1 (0.8-1.2) Sodium 141 (135-145) mmol/L Potassium 4.1 (3.5-5.0) mmol/L Chloride 99 L (101-111) mmol/L Carbon Dioxide 29 (21-32) mmol/L Anion Gap 13.0 (6-13) BUN 45 H (6-20) mg/dL Creatinine 2.2 H (0.4-1.0) mg/dL Estimated GFR (MDRD) 21 L (>89) Glucose 106 H (70-100) mg/dL Lactic Acid 1.1 (0.5-2.2) mmol/L Calcium 8.0 L (8.5-10.3) mg/dL Phosphorus 5.2 H (2.5-4.6) mg/dL Magnesium 2.9 H (1.7-2.8) mg/dL Total Bilirubin 1.2 H (0.2-1.0) mg/dL AST 19 (10-42) IU/L ALT 13 (10-60) IU/L Alkaline Phosphatase 80 (42-121) IU/L Total Protein 5.9 L (6.7-8.2) g/dL Albumin 2.7 L (3.2-5.5) g/dL Globulin 3.2 (2.1-4.2) g/dL Albumin/Globulin Ratio 0.8 L (1.0-2.2) Lipase (22-51) U/L Last Dose Date Last Dose Time Digoxin ng/mL 02/03/18 02/02/18 02/02/18 Range/Units 05:30 16:34 16:34 WBC 5.7 (4.8-10.8) x10^3/uL RBC 3.15 L (4.20-5.40) 10^6/uL Hgb 10.3 L (12.0-16.0) g/dL Hct 28.7 L (37.0-47.0) % MCV 91.3 (81.0-99.0) fL MCH 32.6 H (27.0-31.0) pg MCHC 35.7 (32.0-36.0) g/dL RDW 16.4 H (12.0-15.0) % Plt Count 399 (130-450) 10^3/uL MPV 7.4 L (7.9-10.8) fL Neut # (Auto) 4.2 (1.5-6.6) 10^3/uL Lymph # (Auto) 0.5 L (1.5-3.5) 10^3/uL Acadia # (Auto) 0.9 (0.0-1.0) 10^3/uL Eos # (Auto) 0.0 (0.0-0.7) 10^3/uL Baso # (Auto) 0.0 (0.0-0.1) 10^3/uL Absolute Nucleated RBC 0.00 x10^3/uL Nucleated RBC % 0.1 /100WBC PT (9.9-12.6) secs INR (0.8-1.2) Sodium 141 (135-145) mmol/L Potassium 4.2 (3.5-5.0) mmol/L Chloride 92 L (101-111) mmol/L Carbon Dioxide 33 H (21-32) mmol/L Anion Gap 16.0 H (6-13) BUN 42 H (6-20) mg/dL Creatinine 2.1 H (0.4-1.0) mg/dL Estimated GFR (MDRD) 23 L (>89) Glucose 142 H (70-100) mg/dL Lactic Acid (0.5-2.2) mmol/L Calcium 9.7 (8.5-10.3) mg/dL Phosphorus (2.5-4.6) mg/dL Magnesium (1.7-2.8) mg/dL Total Bilirubin 1.6 H (0.2-1.0) mg/dL AST 23 (10-42) IU/L ALT 15 (10-60) IU/L Alkaline Phosphatase 107 (42-121) IU/L Total Protein 7.3 (6.7-8.2) g/dL Albumin 3.2 (3.2-5.5) g/dL Globulin 4.1 (2.1-4.2) g/dL Albumin/Globulin Ratio 0.8 L (1.0-2.2) Lipase 19 L (22-51) U/L Last Dose Date Not Reportable Last Dose Time Not Reportable Digoxin 1.1 ng/mL 02/02/18 02/02/18 Range/Units 16:34 16:34 WBC 12.9 H (4.8-10.8) x10^3/uL RBC 3.60 L (4.20-5.40) 10^6/uL Hgb 11.5 L (12.0-16.0) g/dL Hct 32.1 L (37.0-47.0) % MCV 89.3 (81.0-99.0) fL MCH 32.0 H (27.0-31.0) pg MCHC 35.8 (32.0-36.0) g/dL RDW 16.3 H (12.0-15.0) % Plt Count 468 H (130-450) 10^3/uL MPV 7.5 L (7.9-10.8) fL Neut # (Auto) 11.5 H (1.5-6.6) 10^3/uL Lymph # (Auto) 0.4 L (1.5-3.5) 10^3/uL [place] # (Auto) 1.0 (0.0-1.0) 10^3/uL Eos # (Auto) 0.0 (0.0-0.7) 10^3/uL Baso # (Auto) 0.0 (0.0-0.1) 10^3/uL Absolute Nucleated RBC 0.00 x10^3/uL Nucleated RBC % 0.0 /100WBC PT 12.8 H (9.9-12.6) secs INR 1.1 (0.8-1.2) Sodium (135-145) mmol/L Potassium (3.5-5.0) mmol/L Chloride (101-111) mmol/L Carbon Dioxide (21-32) mmol/L Anion Gap (6-13) BUN (6-20) mg/dL Creatinine (0.4-1.0) mg/dL Estimated GFR (MDRD) (>89) Glucose (70-100) mg/dL Lactic Acid (0.5-2.2) mmol/L Calcium (8.5-10.3) mg/dL Phosphorus (2.5-4.6) mg/dL Magnesium (1.7-2.8) mg/dL Total Bilirubin (0.2-1.0) mg/dL AST (10-42) IU/L ALT (10-60) IU/L Alkaline Phosphatase (42-121) IU/L Total Protein (6.7-8.2) g/dL Albumin (3.2-5.5) g/dL Globulin (2.1-4.2) g/dL Albumin/Globulin Ratio (1.0-2.2) Lipase (22-51) U/L Last Dose Date Last Dose Time Digoxin ng/mL Impression and Recommendations - Palliative Care Impression: This is an 82-year-old woman with multiple comorbidities, now presenting for a second time within a month for small bowel obstruction. Her more urgent and quality of life issue is actually her left lower extremity, which the pain is been escalating, increasing gangrene now spread to the foot, and patient continues to deteriorate with weight loss, functional decline, and currently presents with mild confusion. Palliative care consulted to help define goals of care, though the patient is ambivalent, is not ready to transition to comfort focus, Patient is still planning at this time to move forward on amputation, son concurs this was her original decision given the options with the vascular surgeon and confirmed in his note. Recommendations/Counseling Done: 1. Acute pain secondary to left lower extremity gangrenous toes. This appears to be escalating fairly dramatically, has needed multiple doses of hydromorphone with only minimal relief and side effects of mild confusion/sedation, describes a sharp shooting pains of high severity. Patient is quite sensitive to opioids, this is confirmed by her son, lidocaine patch had been started by a vascular surgeon to decrease opioid load, would continue, communicated to hospitalist as old 02/02 patch still on left foot. Is also ordered IV acetaminophen, patient not a good candidate for NSAIDs secondary to past GI bleed, unclear if recent issue. Unfortunately patient currently not able to take oral meds, but would recommend initiating gabapentin at the point is able. 2. Gangrenous left lower extremity. Discussed with hospitalist given patient's frailty, recent weight loss, even if small bowel obstruction does resolve most likely needs to be transferred and evaluated for more urgent surgery given her high symptom burden, and waiting most likely would continue to impact her outcome or ability to undergo surgery. Call to vascular surgeon Dr. VICENTE [place], [phone], received latest note. He does state n his note if "patient has increased pain, early signs of infection or other concerns or after amputation can be done at a earlier time." 3. Small bowel obstruction. Patient expressed concerned, rightly so, if recurrent bowel obstructions about undergoing amputation only to continue to struggle with this. Currently does appear to be resolving, unclear underlying etiology. Patient is quite miserable with NG tube, hoping to have out in the a.m. 4. Advanced care planning. Meeting with patient with discussion at length regarding goals of care, ambivalent regarding decision-making, concern about her underlying health issues. Patient does have underlying anxiety and depression, is feeling quite overwhelmed and wishes someone would just "tell her what to do". At this point, she is expressing she wants to move forward with the surgery, she is not ready to yet, though does recognize she is quite frail and this is a possibility. She remains intermittently confused moving in and out of this conversation, but able to participate in expressing her values and goals. "
[2018-02-03] MEDS ORDERED: LIDOCAINE PATCH 5% TOP PRN (18:44)
--- NOTE | 2018-02-03 18:56 | Ultrasound Report ---
Reason: Worsening renal failure and anuria Procedure Date: 02/03/2018 Accession Number: [id number] / [id number] Procedure: US - Retroperitoneal CPT Code: FULL RESULT: EXAM: RENAL ULTRASOUND EXAM DATE: 02/03/2018 10:05 AM. CLINICAL HISTORY: Worsening renal failure and anuria. COMPARISON: ABDOMEN/PELVIS W/O 02/02/2018 5:35 PM. TECHNIQUE: Real-time scanning was performed with static images obtained. FINDINGS: Right Kidney: 8.8 x 3.9 x 4.3 cm. There are small cysts. Superior pole cyst measures 1 cm in diameter. No hydronephrosis. Left Kidney: 9.5 x 4.2 x 3.9 cm. There is a superior pole cyst measuring 2.9 x 1.6 x 2.0 cm. No hydronephrosis. Bladder: Bilateral jets seen. The prevoid bladder volume was 91 cc. The postvoid bladder volume was 2 cc. Other: None. IMPRESSION: 1. No hydronephrosis bilaterally. 2. Small renal cysts. RADIA
[2018-02-03] MEDS: FAMOTIDINE 20 MG/50 ML 50 ML IV SCH (20:17)
[2018-02-03] MEDS ORDERED: MIN OIL/DIMETHICON/COCONUT OIL 92 GM TUBE TOP PRN (20:32)
[2018-02-04] MEDS: HYDROmorphone 1 MG/ML CARPUJECT IVP PRN ×2 (00:49→22:22)
[2018-02-04] MEDS ORDERED: LORazepam 2 MG/ML VIAL IVP STA (01:17)
[2018-02-04] MEDS: ACETAMINOPHEN 1,000 MG/100 ML 100 ML IV SCH ×4 (03:14→20:55)
[2018-02-04 05:26] LABS: BASOPHILS % (AUTO) 0.3 %; EOSINOPHILS # (AUTO) 0.2 10^3/uL (0.0-0.7); EOSINOPHILS % (AUTO) 2.4 %; HGB - HEMOGLOBIN 9.2 g/dL (12.0-16.0); LYMPHOCYTES # (AUTO) 0.7 10^3/uL (1.5-3.5); LYMPHOCYTES % (AUTO) 9.5 %; MEAN CORPUSCULAR HEMOGLOBIN 31.2 pg (27.0-31.0); MEAN CORPUSCULAR HGB CONC 34.2 g/dL (32.0-36.0); MEAN CORPUSCULAR VOLUME 91.1 fL (81.0-99.0); MEAN PLATELET VOLUME 7.2 fL (7.9-10.8); MONOCYTES # (AUTO) 0.8 10^3/uL (0.0-1.0); MONOCYTES % (AUTO) 10.6 %; NEUTROPHILS # (AUTO) 5.6 10^3/uL (1.5-6.6); NEUTROPHILS % (AUTO) 77.2 %; PLT - PLATELET COUNT 353 10^3/uL (130-450); RED BLOOD COUNT 2.96 10^6/uL (4.20-5.40); RED CELL DISTRIBUTION WIDTH 16.8 % (12.0-15.0); WHITE BLOOD COUNT 7.2 x10^3/uL (4.8-10.8)
[2018-02-04 05:34] LABS: ALBUMIN 2.3 g/dL (3.2-5.5); ALBUMIN/GLOBULIN RATIO 0.8 (1.0-2.2); BILIRUBIN,TOTAL 0.2 mg/dL (0.2-1.0); CALCIUM 7.1 mg/dL (8.5-10.3); CREATININE 1.6 mg/dL (0.4-1.0); MAGNESIUM 2.4 mg/dL (1.7-2.8); PHOSPHORUS 2.3 mg/dL (2.5-4.6); TOTAL PROTEIN 5.2 g/dL (6.7-8.2)
[2018-02-04] MEDS: DEXTROSE 5%-0.9% NACL 1,000 ML IV SCH ×3 (06:28→17:13)
[2018-02-04] MEDS: LEVOTHYROXINE 100 MCG VIAL IVP SCH (06:29)
[2018-02-04] MEDS: SODIUM CHLORIDE FLUSH 0.9% 10 ML SYRINGE IVP PRN (06:29)
[2018-02-04] MEDS ORDERED: POTASSIUM PHOSPHATE 15 MMOL in SODIUM CHLORIDE 0.9% 250 ML IV ONE (08:30)
[2018-02-04] MEDS: ENOXAPARIN 30 MG/0.3 ML SYRINGE SUBQ SCH (08:58)
[2018-02-04] MEDS: IPRATROPIUM/ALBUTEROL 3 ML NEB INH PRN ×2 (10:02→21:22)
--- NOTE | 2018-02-04 10:20 | XRAY Report ---
Reason: SBO Procedure Date: 02/04/2018 Accession Number: [id number] / [id number] Procedure: XR - Abdomen 1 View X-Ray CPT Code: 97393 FULL RESULT: EXAM: ABDOMEN RADIOGRAPHY EXAM DATE: 02/04/2018 09:12 AM. CLINICAL HISTORY: Shortness of breath. COMPARISON: ABDOMEN 1 VIEW 02/03/2018 10:31 AM. TECHNIQUE: 1 view. FINDINGS: Bowel Gas Pattern: Interval decrease in dilation of small bowel loops now up to 4.1 cm with fewer distended loops. Gas and stool is seen in the large bowel. Other: Recommend advancement of the enteric tube, essentially unchanged with sidehole near the gastroesophageal junction. IMPRESSION: Interval decrease in gaseous distention. RADIA
--- NOTE | 2018-02-04 13:03 | CONSULTATION NOTE ---
Referring Provider Name of Referring Provider:: Dr. Armond Pinto Consult Date: 02/03/18 Chief Complaint - Chief Complaint Chief Complaint: Small bowel obstruction History of Present Illness - Admitted From Admitted From:: [facility] ED - History Obtained From Records Reviewed: Yes History obtained from: Patient, chart and Dr. Pinto Exam Limitations: None - History of Present Illness HPI Comment/Other: Dr. Pinto asked that I see this 82 year old female for a small bowel obstruction. Today nasogastric tube in place but patient has already had two small BMs and has been passing gas. No complaint of abdominal pain today. States that she has no appetite. Son at bedside. This patient's prognosis is extremely grave. 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 She is awaiting above-knee amput ation. The prognosis with an above-knee amputation is poor. 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: reports: Hysterectomy Cardiovascular: reports: Coronary stent, Cardiac catheterization (2007), Other (antioplasty periperal stenting L SFA 04/2008; right 07/2008) HEENT: reports: Tonsil/Adenoidectomy, Other (vocal cord strip) - Family & Social History Family History: Mother: , Alzheimer's Disease, Father: , CAD Living Situation: With family (son lives with patient; reports dependent on each other concern with son coping hx of substance issues; 20 years ago of suicide; patient with many friends and support in community; likes [employer]; has worked at the [employer] in past;) Social History Notes: The patient lives in [place] with her son. The patient is originally from [place]. She moved to [facility] just over 20 years ago with her . The patient's is since and the patient is now . She is very independent, still very involved in the community. The patient denies currently smoking. She quit smoking about 25-30 years ago. She previously smoked about a pack per day for about 30 years. She states that she used to drink 3 glasses of wine every night but has quit drinking about 4 years ago. She denies any illicit drug use. - Substance History Use: Uses substance without health or social issues: Alcohol (hx of alcohol abuse; Hx smoking) - POLST Patient has POLST: No POLST Status: DNR Meds/Allgy - Home Medications Home Medications: Ambulatory Orders Medication Instructions Recorded Confirmed RX: Zolpidem [Ambien] 5 mg PO QPM PRN 02/14/16 02/02/18 RX: Atorvastatin Calcium 60 mg PO QPM 02/21/16 02/02/18 RX: Hydrocodone/Acetaminophen 1 tab PO Q6H PRN 02/21/16 02/02/18 [Hydrocodon-Acetaminophen 5-325] RX: Levothyroxine Sodium 50 mcg PO QDAC 02/21/16 02/02/18 RX: Furosemide [Lasix] 40 mg PO DAILY 09/24/16 02/02/18 RX: Ascorbic Acid [Vitamin C] 1,000 mg PO DAILY 11/25/16 02/02/18 RX: Cyanocobalamin (Vitamin B-12) 2,000 mcg PO DAILY 11/25/16 02/02/18 [Vitamin B-12] RX: Digoxin 125 mcg PO DAILY 11/25/16 02/02/18 RX: Multivitamin [Multiple 1 tab PO DAILY 11/25/16 02/02/18 Vitamins] RX: Albuterol Sulfate [Proair Hfa 2 puffs IH Q4HR PRN 12/30/17 02/02/18 Inhaler] RX: Aspirin [Aspirin EC] 81 mg PO DAILY 12/30/17 02/02/18 RX: Calcium Carbonate [Calcium] 600 mg PO DAILY 12/30/17 02/02/18 RX: Cholecalciferol (Vitamin D3) 400 units PO DAILY 12/30/17 02/02/18 [Vitamin D3] RX: Metoprolol Succinate 100 mg PO DAILY 12/30/17 02/02/18 - Allergies Allergies/Adverse Reactions: Allergies Allergy/AdvReac Type Severity Reaction Status Date / Time adhesive AdvReac Rash Verified 02/02/18 16:00 lisinopril AdvReac Respiratory Verified 02/02/18 16:00 Review of Systems - Constitutional Constitutional: reports: Fatigue, Weakness. denies: Fever, Chills - Eyes Eyes: denies: Pain - Ears, Nose & Throat Ears, Nose & Throat: denies: Ear pain - Cardiovascular Cariovascular: denies: Irregular heart rate, Palpitations, Chest pain - Respiratory Respiratory: denies: Cough - Gastrointestinal Gastrointestinal: reports: Poor appetite. denies: Abdominal pain - Neurological Neurological: denies: General weakness, Focal weakness - Psychiatric Psychiatric: reports: Depression (Subjectively on my assessment.) Exam - Vital Signs Reviewed Vital Signs: Yes Vital Signs: Vital Signs x48h Temp Pulse Pulse Resp BP Pulse Ox 02/04/18 10:14 37.4 C 75 18 97 02/04/18 10:13 78 18 02/04/18 07:45 37.4 C 82 20 139/66 H 99 - Physical Exam General Appearance: positive: No acute distress Eyes Bilateral: positive: No lid inflammation, Conjunctivae nml, No scleral icterus ENT: positive: Dry mucous membranes Neck: positive: Trachea midline Respiratory: positive: Chest non-tender, Breath sounds nml Cardiovascular: positive: Regular rate & rhythm Abdomen: positive: Non-tender, Nml bowel sounds (But also transmitted NG sounds.) Skin: positive: Pallor Extremities: positive: Other (Gangrenous changes in the left lower extremity. Pulseless left extremity. Extremely painful.) Neurologic/Psychiatric: positive: Oriented x3, Depressed mood/affect Conclusion/Plan - Diagnosis Diagnosis: Small bowel obstruction - Plan Plan: Appears to have resolved or resolving with history of 2 small BMs and passage of flatus. Clamp NG tube and if tolerated after 12-16 hours remove. Then start diet. Again, her prognosis is extraordinarily poor (perioperative mortality approximately 15%, 1 year mortality approximately 50%). 30 minutes of [id number] time was spent with the patient, almost all in explanation and discussion, coordination of their care and completion of the requisite paperwork Dragon disclaimer: This document was created in part using voice recognition technology. Because of the inherent limitations of the system ([employer]'s [employer] user manual states that the licensee understands that speech recognition is a statistical process and that recognition errors are inherent in the process), occasional same sounding word substitutions and grammatical errors do occur and persist despite proofreading. Please read this document for context. - Lab Results Lab results reviewed: Yes Fish Bones: 02/05/18 05:15 02/05/18 05:15
[2018-02-04] MEDS: GABAPENTIN 100 MG CAPSULE PO SCH ×3 (13:06→20:57)
[2018-02-04] MEDS: ASPIRIN EC 81 MG TABLET PO SCH (13:06)
[2018-02-04] MEDS: SODIUM CHLORIDE FLUSH 0.9% 10 ML SYRINGE IVP SCH ×2 (14:47→15:27)
--- NOTE | 2018-02-04 18:59 | PROVIDER PROGRESS NOTE ---
Assessment/Plan - Problem List (1) Small bowel obstruction Assessment/Plan: This am ng was removed. Diet to be started and advanced as tolerated. (2) Gangrene of left foot Assessment/Plan: Pain is worse than 1 week ago. No sign of new infection from the gangrene. Description in Dr Meek's office note is less severe than here. I called his office, he is out on maternity leave, Dr Clarke covering and she agreed that pt is appropriate for transfer. I spoke to a Hospitalist at [facility] who accepted pt but there are no open [facility] beds. I updated the pt and son in room, about the plan and probable transfer tomorrow. (3) COPD (chronic obstructive pulmonary disease) Assessment/Plan: Stable. Continue nebs. (4) Severe protein-calorie malnutrition Assessment/Plan: Clear liquids to be started. Nutrition recommendations awaited. (5) BERTRAND (acute kidney injury) Assessment/Plan: Slight improvement in creat on her iv hydration. Will decrease iv rate, since she will start a liquid diet, to prevent volume overload. (6) Chronic a-fib Assessment/Plan: Stable HR. Pt not on anticoag due to Hx of GI bleed. Will resume her daily ASA, now that she can be on a diet. - Current Meds Current Meds: Current Medications Generic Name Dose Route Start Last Admin Trade Name Freq PRN Reason Stop Dose Admin Albuterol/Ipratropium 3 ml 02/02/18 20:24 02/04/18 10:02 Duoneb INH 3 ml Q4HR PRN Administration Wheezing Aspirin 81 mg 02/04/18 12:00 02/04/18 13:06 Ecotrin PO 81 mg DAILY HUONG Administration Digoxin 125 mcg 02/03/18 16:00 02/03/18 16:26 Lanoxin Inj IVP 125 mcg SUMOWEFR HUONG Administration Enoxaparin Sodium 30 mg 02/03/18 09:00 02/04/18 08:58 Lovenox SUBQ 30 mg DAILY HUONG Administration Gabapentin 100 mg 02/04/18 11:54 02/04/18 13:13 Neurontin PO Not Given TID HUONG Hydromorphone HCl 0.5 mg 02/02/18 20:14 02/04/18 00:49 Dilaudid Inj Carp IVP 0.5 mg Q2HR PRN Administration Pain 8 to 10 Famotidine 50 mls @ 100 mls/hr 02/03/18 21:00 02/03/18 20:47 Pepcid 20 Mg/50 Ml IV Infused HS HUONG Infusion Acetaminophen 100 mls @ 400 mls/hr 02/03/18 15:00 02/04/18 15:05 Ofirmev IV Infused Q6H HUNOG Infusion Dextrose/Sodium Chloride 1,000 mls @ 80 mls/hr 02/04/18 11:51 02/04/18 17:13 D5ns IV 80 mls/hr .[id number] HUONG Administration Levothyroxine Sodium 25 mcg 02/04/18 07:00 02/04/18 06:29 Synthroid Inj IVP 25 mcg QDAC HUONG Administration Lidocaine 1 patch 02/03/18 18:44 02/03/18 20:29 Lidoderm Patch TOP 1 patch DAILY PRN Administration PAIN Ondansetron HCl 4 mg 02/02/18 20:14 02/02/18 23:47 Zofran Inj IVP 4 mg Q6HR PRN Administration Nausea / Vomiting Phenol/Menthol 2 sprays 02/03/18 09:15 02/04/18 09:00 Chloraseptic MM 2 sprays Q2HR PRN Administration Throat Pain Sodium Chloride 10 ml 02/02/18 20:14 02/04/18 06:29 Normal Saline Flush 0.9% IVP 10 ml PRN PRN Administration NEEDED PER PROVIDER ORDERS Sodium Chloride 10 ml 02/03/18 01:00 02/04/18 15:27 Normal Saline Flush 0.9% IVP Not Given 0100,0900,1700 HUONG - Lab Result Fish Bone Diagrams: 02/04/18 05:10 02/04/18 05:10 - Additional Planning My Orders: My Active Orders 02/03/18 18:44 Lidocaine Patch 5% [Lidoderm Patch] 1 patch TOP DAILY PRN 02/04/18 07:00 Levothyroxine Inj [Synthroid Inj] 25 mcg IVP QDAC 02/04/18 09:23 Miscellaenous Nursing Order [RC] QSHIFT 02/04/18 10:23 Incentive Spirometry - RT [RC] .tid 02/04/18 11:51 Dextrose 5%-0.9% NaCl [D5ns] 1,000 ml IV 80 mls/hr 02/04/18 11:54 Gabapentin [Neurontin] 100 mg PO TID 02/04/18 12:00 Aspirin EC [Ecotrin] 81 mg PO DAILY 02/04/18 21:00 Atorvastatin [Lipitor] 60 mg PO QPM 02/04/18 Lunch DIET [Clear Liquid Diet] [DIET] 02/05/18 05:00 DIGOXIN [CHEM] Routine 02/05/18 08:00 Multivitamin [Theragran] 1 tab PO DAILYWM 02/05/18 09:00 Cholecalciferol [Vitamin D3] 400 unit PO DAILY Cyanocobalamin [Vitamin B-12] 2,000 mcg PO DAILY Subjective - Subjective Patient Reports: Other (Feels tired, no N/V, minimal residual in stomach when ng unclamped.) Objective Vital Signs: Vital Signs - 24 hr 02/04/18 02/04/18 02/04/18 00:00 07:45 10:13 Temperature 36.4 C L 37.4 C Heart Rate 78 Heart Rate [ 84 82 Brachial] Respiratory 18 20 18 Rate Blood Pressure 138/63 H 139/66 H [Right Brachial artery] O2 Saturation 98 99 02/04/18 02/04/18 10:14 15:47 Temperature 37.4 C 36.7 C Heart Rate 75 Heart Rate [ 93 Brachial] Respiratory 18 20 Rate Blood Pressure 149/76 H [Right Brachial artery] O2 Saturation 97 92 Oxygen O2 Source Room air I&O (Last 24 Hrs): Intake and Output Totals x24h 02/02/18 02/03/18 02/04/18 23:59 23:59 23:59 Intake Total 2051.667 3034.750 3705 Output Total 700 210 225 Balance 6422.251 2626.750 3480 General: Alert, Oriented x3 HEENT: Other (Dry mucosa) Neck: Supple Neuro: Alert, Non Focal Cardiovascular: Other (1-2/6 murmur at LLSB) Respiratory: No respiratory distress Abdomen: Soft, No tenderness Extremities: Other (L toes black, dorsum trang foot purple) - Results Results: Laboratory Results WBC 7.2 x10^3/uL (4.8-10.8) 02/04/18 05:10 RBC 2.96 10^6/uL (4.20-5.40) L 02/04/18 05:10 Hgb 9.2 g/dL (12.0-16.0) L 02/04/18 05:10 Hct 27.0 % (37.0-47.0) L 02/04/18 05:10 MCV 91.1 fL (81.0-99.0) 02/04/18 05:10 MCH 31.2 pg (27.0-31.0) H 02/04/18 05:10 MCHC 34.2 g/dL (32.0-36.0) 02/04/18 05:10 RDW 16.8 % (12.0-15.0) H 02/04/18 05:10 Plt Count 353 10^3/uL (130-450) 02/04/18 05:10 MPV 7.2 fL (7.9-10.8) L 02/04/18 05:10 Neut # (Auto) 5.6 10^3/uL (1.5-6.6) 02/04/18 05:10 Lymph # (Auto) 0.7 10^3/uL (1.5-3.5) L 02/04/18 05:10 [place] # (Auto) 0.8 10^3/uL (0.0-1.0) 02/04/18 05:10 Eos # (Auto) 0.2 10^3/uL (0.0-0.7) 02/04/18 05:10 Baso # (Auto) 0.0 10^3/uL (0.0-0.1) 02/04/18 05:10 Absolute Nucleated RBC 0.00 x10^3/uL 02/04/18 05:10 Nucleated RBC % 0.1 /100WBC 02/04/18 05:10 PT 12.5 secs (9.9-12.6) 02/03/18 05:30 INR 1.1 (0.8-1.2) 02/03/18 05:30 Sodium 142 mmol/L (135-145) 02/04/18 05:10 Potassium 3.7 mmol/L (3.5-5.0) 02/04/18 05:10 Chloride 109 mmol/L (101-111) 02/04/18 05:10 Carbon Dioxide 24 mmol/L (21-32) 02/04/18 05:10 Anion Gap 9.0 (6-13) 02/04/18 05:10 BUN 43 mg/dL (6-20) H 02/04/18 05:10 Creatinine 1.6 mg/dL (0.4-1.0) H 02/04/18 05:10 Estimated GFR (MDRD) 31 (>89) L 02/04/18 05:10 Glucose 144 mg/dL (70-100) H 02/04/18 05:10 Lactic Acid 1.1 mmol/L (0.5-2.2) 02/03/18 05:30 Calcium 7.1 mg/dL (8.5-10.3) L 02/04/18 05:10 Phosphorus 2.3 mg/dL (2.5-4.6) L 02/04/18 05:10 Magnesium 2.4 mg/dL (1.7-2.8) 02/04/18 05:10 Total Bilirubin 0.2 mg/dL (0.2-1.0) 02/04/18 05:10 AST 29 IU/L (10-42) 02/04/18 05:10 ALT 15 IU/L (10-60) 02/04/18 05:10 Alkaline Phosphatase 78 IU/L (42-121) 02/04/18 05:10 Total Protein 5.2 g/dL (6.7-8.2) L 02/04/18 05:10 Albumin 2.3 g/dL (3.2-5.5) L 02/04/18 05:10 Globulin 2.9 g/dL (2.1-4.2) 02/04/18 05:10 Albumin/Globulin Ratio 0.8 (1.0-2.2) L 02/04/18 05:10 Lipase 19 U/L (22-51) L 02/02/18 16:34 Last Dose Date Not Reportable 02/02/18 16:34 Last Dose Time Not Reportable 02/02/18 16:34 Digoxin 1.1 ng/mL 02/02/18 16:34 - Procedures Procedures: Procedures INSPECTION OF UPPER INTESTINAL TRACT, ENDO (02/22/16) PACKED CELL TRANSFUSION (04/13/14)
[2018-02-04] MEDS: FAMOTIDINE 20 MG/50 ML 50 ML IV SCH (20:14)
[2018-02-04] MEDS ORDERED: ATORVASTATIN 40 MG TABLET PO SCH (21:00)
[2018-02-05] MEDS: ACETAMINOPHEN 1,000 MG/100 ML 100 ML IV SCH ×3 (03:09→14:22)
[2018-02-05] MEDS: SODIUM CHLORIDE FLUSH 0.9% 10 ML SYRINGE IVP SCH ×3 (03:56→06:31)
[2018-02-05 05:33] LABS: BASOPHILS % (AUTO) 0.4 %; EOSINOPHILS # (AUTO) 0.1 10^3/uL (0.0-0.7); HGB - HEMOGLOBIN 9.4 g/dL (12.0-16.0); LYMPHOCYTES # (AUTO) 0.6 10^3/uL (1.5-3.5); LYMPHOCYTES % (AUTO) 6.1 %; MEAN CORPUSCULAR HEMOGLOBIN 29.9 pg (27.0-31.0); MEAN CORPUSCULAR HGB CONC 32.1 g/dL (32.0-36.0); MEAN CORPUSCULAR VOLUME 93.3 fL (81.0-99.0); MEAN PLATELET VOLUME 7.2 fL (7.9-10.8); MONOCYTES # (AUTO) 0.7 10^3/uL (0.0-1.0); MONOCYTES % (AUTO) 7.3 %; NEUTROPHILS # (AUTO) 7.9 10^3/uL (1.5-6.6); NEUTROPHILS % (AUTO) 85.2 %; PLT - PLATELET COUNT 342 10^3/uL (130-450); RED BLOOD COUNT 3.15 10^6/uL (4.20-5.40); RED CELL DISTRIBUTION WIDTH 17.3 % (12.0-15.0); WHITE BLOOD COUNT 9.3 x10^3/uL (4.8-10.8)
[2018-02-05 05:42] LABS: ALBUMIN 2.3 g/dL (3.2-5.5); ALBUMIN/GLOBULIN RATIO 0.7 (1.0-2.2); BILIRUBIN,TOTAL 0.4 mg/dL (0.2-1.0); CALCIUM 7.3 mg/dL (8.5-10.3); MAGNESIUM 2.1 mg/dL (1.7-2.8); PHOSPHORUS 2.5 mg/dL (2.5-4.6); TOTAL PROTEIN 5.4 g/dL (6.7-8.2)
[2018-02-05 05:45] LABS: DIGOXIN 1.1 ng/mL
[2018-02-05] MEDS: GABAPENTIN 100 MG CAPSULE PO SCH ×2 (06:20→13:04)
[2018-02-05] MEDS: DEXTROSE 5%-0.9% NACL 1,000 ML IV SCH (06:21)
[2018-02-05] MEDS: LEVOTHYROXINE 100 MCG VIAL IVP SCH (06:23)
[2018-02-05] MEDS ORDERED: MULTIVITAMIN TABLET PO SCH (08:00)
[2018-02-05] MEDS ORDERED: DEXTROSE 5%-0.9% NACL 1,000 ML IV SCH (08:10)
[2018-02-05] MEDS ORDERED: CYANOCOBALAMIN 500 MCG TABLET PO SCH (09:00)
[2018-02-05] MEDS ORDERED: DIGOXIN 125 MCG TABLET PO SCH (09:00)
[2018-02-05] MEDS ORDERED: CHOLECALCIFEROL 400 UNIT TABLET PO SCH (09:00)
[2018-02-05] MEDS ORDERED: METOPROLOL SUCCINATE 50 MG TABLET PO SCH (09:00)
[2018-02-05] MEDS: ENOXAPARIN 30 MG/0.3 ML SYRINGE SUBQ SCH (09:20)
[2018-02-05] MEDS: ASPIRIN EC 81 MG TABLET PO SCH (09:20)
--- NOTE | 2018-02-05 09:37 | XRAY Report ---
Reason: SBO Procedure Date: 02/05/2018 Accession Number: [id number] / [id number] Procedure: XR - Abdomen 1 View X-Ray CPT Code: 21556 FULL RESULT: EXAM: ABDOMEN RADIOGRAPHY EXAM DATE: 02/05/2018 09:04 AM. CLINICAL HISTORY: Shortness of breath. COMPARISON: Abdomen 1 view 02/04/2018 8:57 AM. TECHNIQUE: 1 view. FINDINGS: Bowel Gas Pattern: Gas is seen in loops of small and large bowel. Other: The enteric tube has been removed. IMPRESSION: Nonobstructive bowel gas pattern. RADIA
[2018-02-05] MEDS: HYDROmorphone 1 MG/ML CARPUJECT IVP PRN ×2 (10:06→13:04)
[2018-02-05] MEDS: IPRATROPIUM/ALBUTEROL 3 ML NEB INH PRN (12:26)
[2018-02-05] MEDS ORDERED: guaiFENesin/CODEINE 5 ML UDC PO PRN (12:40)
[2018-02-05 12:59] VITALS: BP 142/78
[2018-02-05] MEDS ORDERED: guaiFENesin 600 MG TABLET PO SCH (13:00)
--- NOTE | 2018-02-05 16:07 | Discharge Plan ---
Discharge Plan Disposition: 02 Transfer Acute Care Hosp Condition: Serious Instruction Topics: Obstruction Sm Bowel, Amputation What to Expect After No Smoking: If you smoke, Please STOP! Call for help. Follow-up with: Delvin Parrish DO [Primary Care Provider] -
[2018-02-06] MEDS ORDERED: LEVOTHYROXINE 25 MCG TABLET PO SCH (07:00)
--- NOTE | 2018-02-16 12:52 | DISCHARGE SUMMARY ---
Physician: Yaneth Stallings MD DATE OF ADMISSION: 02/02/2018 DATE OF DISCHARGE: 02/05/2018 HISTORY OF PRESENT ILLNESS: This is an 82-year-old white female with a history of hypertension, chronic Afib, history of GI bleed, osteoarthritis, peripheral vascular disease with a gangrenous left foot scheduled for amputation on 02/15/2018, history of GERD, asthma/COPD, and anxiety. The patient had an admission here 1 month previously for small-bowel obstruction and was discharged to [facility] for PT rehab. She states that the food there was not to her liking, and she had very poor nutritional intake. Over the last few days, she started to have abdominal pain and then nausea and vomiting, and then started having worsening pain of the left foot and was brought to the emergency room for evaluation. She was found to have small bowel obstruction and worsening of the left foot gangrene. HOSPITAL COURSE AND DISCHARGE DIAGNOSES 1. Small-bowel obstruction. The patient had a CT scan that showed small-bowel obstruction with transition point at the terminal ileum. There was also distention of the distal esophagus and stomach with fluid and contrast. She did finally agree to an NG tube for decompression and had this for approximately 48 hours and had improvement in her obstruction. She started to pass gas and then bowel movements and the NG tube was removed. Her diet was advanced to full liquids. She once again had very poor intake due to a poor appetite. She was on IV hydration during this hospitalization. A general surgery consult was obtained, but no other interventions were needed. 2. Gangrene of the left foot. The patient had excruciating pain through her entire course. She required narcotics for relief. Undoubtedly, these narcotics added to her small-bowel obstruction. She was seen by CLAYTON Pringle, for a palliative care consult. It was difficult to obtain a decision about her goals, from the patient, she was relying heavily on her son. We obtained records from her last vascular surgery office visit in [place] with Dr. Bee from 01/29/2018, that stated "if the patient should have increasing pain, early signs of infection or other concerns, her amputation could be done at an earlier time". I reached out to the vascular surgery team at [place], and it was deemed that transfer was appropriate. She was accepted in transfer by the Hospitalist at [facility] in [place] and was transferred on 02/05/2018 for further management. 3. COPD. The patient was kept on her nebulizers while here. She had minimal wheezing and minimal shortness of breath while hospitalized here. 4. Severe protein-calorie malnutrition. She refused various kinds of diet. Her son described that she was very picky and had only a few favorite foods anyway and refused to eat when foods tasted bad. Her intake had minimal protein, but she did take Ensure and clear liquids while here. 5. Acute kidney injury (BERTRAND). Because of her dehydration, the patient was felt to have prerenal azotemia with admission BUN was 41, creatinine 2.1 (baseline creatinine 1.0). With iv hydration, the creatinine improved to 1.6 and was 1.0 on the day of transfer. 6. Chronic Afib. The patient had adequate heart rate control on her medications. She had been taken off of her Coumadin remotely because of the GI bleed. She was on an aspirin daily. ALLERGIES 1. ADHESIVE TAPE. 2. LISINOPRIL. DISCHARGE MEDICATIONS At the time of transfer: 1. Albuterol. 2. Vitamin C. 3. Baby aspirin. 4. Lipitor 60 mg daily. 5. Calcium carbonate. 6. Vitamin D3. 7. Vitamin B12. 8. Digoxin 125 mcg daily. 9. Lasix 40 mg p.o. daily. 10. Tylenol with codeine p.r.n. 11. Levothyroxine 50 mcg daily. 12. Metoprolol succinate 100 mg daily. 13. Multivitamin daily. 14. Ambien p.r.n. LABORATORIES AND IMAGING: Reviewed and summarized above. CONDITION AT THE TIME OF TRANSFER: Serious. PHYSICAL EXAMINATION: Cachexia. VITAL SIGNS: Blood pressure 142/78, pulse 80-100 in Afib, afebrile. Room air saturation 96%. HEENT: Unremarkable except for temporal muscle wasting. NECK: Positive JVD. No carotid bruits. CHEST: Increased AP diameter, prolonged expiratory phase, rare scattered wheezes. HEART: Heart sounds distant. ABDOMEN: Soft, normal bowel sounds. No tenderness. EXTREMITIES: The right foot had mild venous stasis changes and had a good dorsalis pedis pulse. The left foot had severe tenderness from the maldonado down to the toes, and black discoloration of the first 4 toes spreading up to the anterior ankle, and no dorsalis pedis pulse was present. NEUROLOGIC: Grossly intact. CODE STATUS: DNR. FOLLOWUP: This will be determined after her hospitalization at [facility] in [place], [place]. TIME REQUIRED TO COMPLETE HIS ENTIRE DISCHARGE, ARRANGEMENT FOR TRANSFER, DISCUSSION WITH VASCULAR SURGERY AND HOSPITALIST AT [facility], CHART REVIEW, PATIENT EDUCATION, DICTATION: 60 minutes. cc: Delvin Parrish DO TD: 02/16/2018 12:16 MTDD
== END 2018-02-05 15:15 | disposition short-term general hospital (02) | DRG 388 ==
LOC: ED 15:45 → MS2 20:14 → OBSVTOIN 02-03 03:12
PROVIDERS: ADMIT Internal Medicine; ATTEND Internal Medicine
DX: K56.609 Unspecified intestinal obstruction, unspecified as to partial versus complete obstruction (principal); E43 Unspecified severe protein-calorie malnutrition; I48.92 Unspecified atrial flutter; Z68.1 Body mass index [BMI] 19.9 or less, adult; J45.20 Mild intermittent asthma, uncomplicated; K21.0 Gastro-esophageal reflux disease with esophagitis; N17.9 Acute kidney failure, unspecified; I73.9 Peripheral vascular disease, unspecified; J44.9 Chronic obstructive pulmonary disease, unspecified; I48.2 Chronic atrial fibrillation; I11.0 Hypertensive heart disease with heart failure; R32 Unspecified urinary incontinence; I50.9 Heart failure, unspecified; F41.0 Panic disorder [episodic paroxysmal anxiety]; E78.5 Hyperlipidemia, unspecified; E03.9 Hypothyroidism, unspecified; M19.90 Unspecified osteoarthritis, unspecified site; K21.9 Gastro-esophageal reflux disease without esophagitis; E86.0 Dehydration; I25.10 Atherosclerotic heart disease of native coronary artery without angina pectoris; Z66 Do not resuscitate; Z79.891 Long term (current) use of opiate analgesic; Z79.51 Long term (current) use of inhaled steroids; Z79.82 Long term (current) use of aspirin; Z79.899 Other long term (current) drug therapy; Z87.891 Personal history of nicotine dependence; Z95.5 Presence of coronary angioplasty implant and graft
CPT/HCPCS: 36415; 74018; 74176; 76770; 80053; 80162; 83605; 83690; 83735; 84100; 85025; 85610; 94640; 96361; 96365; 96372; 96374; 96375; 96376; 99223; 99283; 99284

== ENCOUNTER 2018-02-05 15:18 | Outpatient (CLI) | payer MEDICARE, OTHER | END 2018-02-05 15:19 | disposition short-term general hospital (02) | LOC: EMS 15:18 | PROVIDERS: ATTEND Surgery | DX: I96 Gangrene, not elsewhere classified (principal); I48.91 Unspecified atrial fibrillation | CPT/HCPCS: A0425; A0426 ==